=== PATIENT | male | born 1950 | race Caucasian/White ===

== ENCOUNTER → 2022-06-29 | Outpatient (CLI) | payer OTHER ==
[2022-06-29 14:40] LABS: Basophils # (auto) 0.1 10 ^3/uL (0-0.2); Basophils % (auto) 0.7 % (0.0-2.0); Eosinophils # (auto) 0.3 10 ^3/uL (0-0.8); Eosinophils % (auto) 4.1 % (0.0-7.0); Hematocrit 43.1 % (41.0-53.0); Hemoglobin 14.6 g/dL (13.5-17.5); Lymphocytes # (auto) 1.7 10 ^3/uL (0.4-5.4); Lymphocytes % (auto) 20.9 % (10.0-50.0); Mean Corpuscular Hemoglobin 30.5 pg (28.0-32.0); Mean Corpuscular Hgb Conc. 33.9 g/dL (32.0-36.0); Mean Corpuscular Volume 89.9 fL (80.0-100.0); Monocytes # (auto) 0.6 10 ^3/uL (0-1.3); Monocytes % (auto) 7.9 % (0.0-12.0); Neutrophils # (auto) 5.3 10 ^3/uL (1.6-8.6); Neutrophils % (auto) 66.4 % (37.0-80.0); Nucleated Red Blood Cells % 0.1 %; Red Cell Distribution Width 12.8 % (11.8-14.3)
[2022-06-29 16:54] LABS: Albumin 3.7 g/dL (3.4-5.0); Calcium 8.5 mg/dL (8.5-10.1); Potassium 3.9 mmol/L (3.5-5.1)
[2022-06-29 17:04] LABS: BUN/Creatinine Ratio 22.2; Bilirubin, Total 0.6 mg/dL (0.2-1.0); Ferritin 173.7 ng/mL (10-322); T3 Total 0.97 ng/mL (0.60-1.81)
== END | disposition home or self-care (01) ==
LOC: LAB 14:20
PROVIDERS: ATTEND Internal Medicine
DX: M81.0 Age-related osteoporosis without current pathological fracture (principal); E78.5 Hyperlipidemia, unspecified; E55.9 Vitamin D deficiency, unspecified; R73.9 Hyperglycemia, unspecified
CPT/HCPCS: 36415; 80053; 80061; 82306; 82550; 82607; 82728; 83036; 83540; 83550; 84436; 84443; 84480; 85025

== ENCOUNTER 2022-07-31 01:20 | Inpatient (IN) | payer OTHER ==
[2022-07-31] VITALS (7 sets, daily range): BP systolic 139–176; BP diastolic 76–91
[~2022-07-31] VITALS: Ht 177.8 cm; Wt 68.0 kg
[2022-07-31 01:56] LABS: Basophils # (auto) 0.1 10 ^3/uL (0-0.2); Basophils % (auto) 0.3 % (0.0-2.0); Eosinophils # (auto) 0.2 10 ^3/uL (0-0.8); Hematocrit 37.5 % (41.0-53.0); Hemoglobin 13.3 g/dL (13.5-17.5); Lymphocytes # (auto) 0.4 10 ^3/uL (0.4-5.4); Lymphocytes % (auto) 2.2 % (10.0-50.0); Mean Corpuscular Hgb Conc. 35.4 g/dL (32.0-36.0); Mean Corpuscular Volume 87.4 fL (80.0-100.0); Monocytes # (auto) 0.5 10 ^3/uL (0-1.3); Neutrophils # (auto) 16.7 10 ^3/uL (1.6-8.6); Neutrophils % (auto) 93.5 % (37.0-80.0); Nucleated Red Blood Cells % 0.1 %; White Blood Cell 17.9 10^3/uL (4.4-10.8)
[2022-07-31] MEDS ORDERED: IOHEXOL 350 MG/ML 100ML IJ ONE (01:57)
[2022-07-31 02:08] LABS: Albumin 2.6 g/dL (3.4-5.0); BUN/Creatinine Ratio 22.6 (10.0-20.0); Magnesium 2.3 mg/dL (1.6-2.6); Potassium 3.1 mmol/L (3.5-5.1)
[2022-07-31 02:11] LABS: Bilirubin, Total 1.4 mg/dL (0.2-1.0); Total Protein 7.2 g/dL (6.4-8.2)
[2022-07-31 03:17] LABS: Urine Bacteria FEW /hpf (None Seen); Urine Blood Negative /uL (Negative); Urine WBC 2 /hpf (0 - 3)
[2022-07-31 03:21] LABS: Urine Specific Gravity > 1.050 (1.001-1.035)
[2022-07-31] MEDS ORDERED: cefTRIAXone 1GM/50ML D5W 50 ML IV ONE (04:00)
[2022-07-31] MEDS ORDERED: LACTATED RINGER'S 1,000 ML IV ONE (04:00)
[2022-07-31] MEDS ORDERED: DexAMETHasone SOD PHOS 10MG/1ML VIAL INJ IV ONE (04:00)
[2022-07-31] MEDS ORDERED: ALBUTEROL SULF 2.5 MG/0.5ML(0.5%) NEB SOLN NEB ONE (04:00)
[2022-07-31] MEDS ORDERED: AZITHROMYCIN 500MG/ 250ML 250 ML IV ONE (04:00)
[2022-07-31] MEDS ORDERED: ALBUTEROL SULF HFA 90MCG INH 200DOSE IN PRN (10:15)
[2022-07-31] MEDS ORDERED: REMDESIVIR PER PHARMACY 0 ML IV SCH (10:15)
[2022-07-31] MEDS ORDERED: VANCOMYCIN PER PHARMACY 0 MG IV SCH (10:15)
[2022-07-31] MEDS ORDERED: PANTOPRAZOLE 40 MG/10 ML VIAL INJ IV ONE (10:15)
[2022-07-31] MEDS ORDERED: SODIUM CHLORIDE 0.9% 1,000 ML IV ONE (10:15)
[2022-07-31] MEDS ORDERED: CEFEPIME 1GM/ 50ML 50 ML IV ONE (10:15)
[2022-07-31] MEDS ORDERED: MORPHINE SULFATE INJ 2 MG/ml SYRG IV PRN (10:30)
[2022-07-31] MEDS ORDERED: ALBUTEROL SULF 2.5 MG/0.5ML(0.5%) NEB SOLN ONE (10:41)
[2022-07-31] MEDS ORDERED: IPRATROPIUM BROM 0.5 MG/2.5ML INH SOL ONE (10:41)
[2022-07-31] MEDS ORDERED: hydrALAZINE HCL 20 MG/ML VL IV PRN (10:45)
[2022-07-31 10:54] LABS: Hematocrit 38.6 % (41.0-53.0); Hemoglobin 13.4 g/dL (13.5-17.5); Mean Corpuscular Hemoglobin 30.8 pg (28.0-32.0); Mean Corpuscular Hgb Conc. 34.6 g/dL (32.0-36.0); Mean Corpuscular Volume 88.9 fL (80.0-100.0); Red Blood Cells 4.35 10^6/uL (4.5-5.90); Red Cell Distribution Width 13.1 % (11.8-14.3); White Blood Cell 16.2 10^3/uL (4.4-10.8)
[2022-07-31] MEDS: POTASSIUM CHL 20MEQ/100ML 100 ML IV SCH ×2 (10:58→12:30)
[2022-07-31] MEDS: SODIUM CHLORIDE 0.9% 1,000 ML IV SCH ×2 (10:58→18:25)
[2022-07-31 11:00] LABS: Basophils % (manual) 0 (0.0-2.0); Blast Cells 0; Eosinophils % (manual) 0 (0-7); Metamyelocytes % 0; Myelocytes % 0; Promyelocytes % 0; Reactive Lymphocytes 0
[2022-07-31] MEDS: VANCOMYCIN 1GM/250ML 250 ML IV SCH ×2 (11:30→23:42)
[2022-07-31 11:32] LABS: Albumin 2.4 g/dL (3.4-5.0); BUN/Creatinine Ratio 21.7 (10.0-20.0); Calcium 8.7 mg/dL (8.5-10.1); Potassium 3.2 mmol/L (3.5-5.1)
[2022-07-31 11:35] LABS: Total Protein 6.4 g/dL (6.4-8.2)
[2022-07-31] MEDS: IPRATROPIUM BROM 0.5 MG/2.5ML INH SOL NEB SCH ×2 (11:47→18:19)
[2022-07-31] MEDS: ALBUTEROL SULF 2.5 MG/0.5ML(0.5%) NEB SOLN NEB SCH ×2 (11:47→18:19)
[2022-07-31] MEDS ORDERED: REMDESIVIR 200 MG in NS 210ml LOADING DOSE ADULT IV ONE (12:00)
[2022-07-31 13:01] LABS: Amphetamine Screen, Urine NEGATIVE (NEGATIVE); Barbiturate Scree,Urine NEGATIVE (NEGATIVE); Benzodiazephine Screen, Urine NEGATIVE (NEGATIVE); Cannabinoid Screen, Urine NEGATIVE (NEGATIVE); Cocaine Screen, Urine NEGATIVE (NEGATIVE); Opiate Scree,Urine NEGATIVE (NEGATIVE); Phencyclidine Screen, Urine NEGATIVE (NEGATIVE)
[2022-07-31 13:36] LABS: Thyroid Stimulating Hormone 0.65 uIU/mL (0.358-3.74)
[2022-07-31] MEDS: CEFEPIME 1GM/ 50ML 50 ML IV SCH ×2 (14:00→22:24)
[2022-07-31] MEDS ORDERED: LIDOCAINE 2% JELLY 11ml (GLYDO) UR ONE (15:30)
[2022-07-31 16:19] LABS: Band Neutrophils % (manual) 5; Lymphocytes % (manual) 1 (10.0-50.0); Monocytes % (manual) 2 (0-12)
[2022-07-31] MEDS: BUDESONIDE (INHALATION) 180 MCG IH IN SCH (18:53)
[2022-07-31] MEDS: ENOXAPARIN SOD 40 MG/0.4 ML SYRINGE SC SCH (22:25)
[2022-08-01] VITALS (44 sets, daily range): BP systolic 124–177; BP diastolic 71–94
[2022-08-01] MEDS: IPRATROPIUM BROM 0.5 MG/2.5ML INH SOL NEB SCH ×4 (00:28→18:13)
[2022-08-01] MEDS: ALBUTEROL SULF 2.5 MG/0.5ML(0.5%) NEB SOLN NEB SCH ×4 (00:28→18:13)
[2022-08-01 01:13] LABS: Magnesium 2.3 mg/dL (1.6-2.6)
[2022-08-01] MEDS: SODIUM CHLORIDE 0.9% 1,000 ML IV SCH ×2 (02:15→10:15)
[2022-08-01 03:52] LABS: Basophils # (auto) 0 10 ^3/uL (0-0.2); Eosinophils # (auto) 0 10 ^3/uL (0-0.8); Hematocrit 38.5 % (41.0-53.0); Hemoglobin 12.9 g/dL (13.5-17.5); Lymphocytes # (auto) 0.3 10 ^3/uL (0.4-5.4); Lymphocytes % (auto) 2.2 % (10.0-50.0); Mean Corpuscular Hemoglobin 30.6 pg (28.0-32.0); Mean Corpuscular Volume 91.2 fL (80.0-100.0); Monocytes # (auto) 0.7 10 ^3/uL (0-1.3); Neutrophils # (auto) 13.9 10 ^3/uL (1.6-8.6); Neutrophils % (auto) 92.8 % (37.0-80.0); Red Blood Cells 4.22 10^6/uL (4.5-5.90)
[2022-08-01 03:53] LABS: Mean Corpuscular Hgb Conc. 33.5 g/dL (32.0-36.0); Red Cell Distribution Width 13.4 % (11.8-14.3)
[2022-08-01 04:12] LABS: Albumin 2.2 g/dL (3.4-5.0); BUN/Creatinine Ratio 21.5 (10.0-20.0); Calcium 8.8 mg/dL (8.5-10.1); Potassium 3.3 mmol/L (3.5-5.1)
[2022-08-01 04:15] LABS: Bilirubin, Total 0.7 mg/dL (0.2-1.0); Total Protein 6.8 g/dL (6.4-8.2)
[2022-08-01] MEDS: CEFEPIME 1GM/ 50ML 50 ML IV SCH ×4 (06:00→22:14)
[2022-08-01] MEDS: BUDESONIDE (INHALATION) 180 MCG IH IN SCH (10:00)
[2022-08-01] MEDS ORDERED: PANTOPRAZOLE 40 MG/10 ML VIAL INJ IV SCH (10:00)
[2022-08-01] MEDS: DexAMETHasone SOD PHOS 10MG/1ML VIAL INJ IV SCH (10:09)
[2022-08-01] MEDS: POTASSIUM CHL 20MEQ/100ML 100 ML IV SCH ×2 (10:10→12:01)
[2022-08-01] MEDS: ENOXAPARIN SOD 40 MG/0.4 ML SYRINGE SC SCH (10:10)
[2022-08-01] MEDS ORDERED: amLODIPine BESYLATE 5 MG TAB PO ONE (11:45)
[2022-08-01 13:17] LABS: INR 1.19 (0.9-1.15)
[2022-08-01] MEDS: REMDESIVIR 100mg 100 MG in SODIUM CHL 0.9% 230 ML IV SCH (15:05)
[2022-08-01] MEDS ORDERED: LIDOCAINE 1% (LOCAL ANESTH.) PF 5ml SDV ID ONE (16:00)
[2022-08-01 16:52] LABS: CRP High Sensitivity > 19.0 mg/dL (< 0.3); Cholesterol 86 mg/dL (< 200); HDL Cholesterol 17 mg/dL (40-59); LDL Cholesterol 38 mg/dL (< 100); Triglycerides 105 mg/dL (< 150)
[2022-08-01] MEDS: SODIUM CHLOR 0.9% PF (SALINE LOCK) 10ML VIAL/SYR IV SCH (22:14)
[2022-08-02] VITALS (45 sets, daily range): BP systolic 117–174; BP diastolic 61–100
[2022-08-02] MEDS: ALBUTEROL SULF 2.5 MG/0.5ML(0.5%) NEB SOLN NEB SCH ×4 (00:13→18:21)
[2022-08-02] MEDS: IPRATROPIUM BROM 0.5 MG/2.5ML INH SOL NEB SCH ×4 (00:14→18:21)
[2022-08-02] MEDS: ENOXAPARIN SOD 40 MG/0.4 ML SYRINGE SC SCH ×3 (00:27→22:03)
[2022-08-02] MEDS: BUDESONIDE (INHALATION) 180 MCG IH IN SCH ×3 (00:45→22:00)
[2022-08-02] MEDS: CEFEPIME 1GM/ 50ML 50 ML IV SCH ×3 (05:55→22:03)
[2022-08-02 06:06] LABS: Basophils # (auto) 0 10 ^3/uL (0-0.2); Basophils % (auto) 0.1 % (0.0-2.0); Eosinophils # (auto) 0 10 ^3/uL (0-0.8); Eosinophils % (auto) 0.2 % (0.0-7.0); Hematocrit 34.7 % (41.0-53.0); Hemoglobin 11.9 g/dL (13.5-17.5); Lymphocytes # (auto) 0.4 10 ^3/uL (0.4-5.4); Lymphocytes % (auto) 2.1 % (10.0-50.0); Mean Corpuscular Hemoglobin 30.7 pg (28.0-32.0); Mean Corpuscular Hgb Conc. 34.2 g/dL (32.0-36.0); Mean Corpuscular Volume 89.7 fL (80.0-100.0); Monocytes # (auto) 0.8 10 ^3/uL (0-1.3); Monocytes % (auto) 4.9 % (0.0-12.0); Neutrophils # (auto) 15.8 10 ^3/uL (1.6-8.6); Neutrophils % (auto) 92.7 % (37.0-80.0); Red Blood Cells 3.87 10^6/uL (4.5-5.90); Red Cell Distribution Width 13.4 % (11.8-14.3); White Blood Cell 17.1 10^3/uL (4.4-10.8)
[2022-08-02 06:18] LABS: Basophils % (manual) 0 (0.0-2.0); Blast Cells 0; Eosinophils % (manual) 0 (0-7); Metamyelocytes % 0; Myelocytes % 0; Promyelocytes % 0; Reactive Lymphocytes 0
[2022-08-02 06:23] LABS: Albumin 2.2 g/dL (3.4-5.0); Calcium 8.6 mg/dL (8.5-10.1); Potassium 3.2 mmol/L (3.5-5.1)
[2022-08-02 06:25] LABS: BUN/Creatinine Ratio 28.9 (10.0-20.0)
[2022-08-02 06:28] LABS: Bilirubin, Total 0.7 mg/dL (0.2-1.0); Total Protein 6.1 g/dL (6.4-8.2)
[2022-08-02 07:06] LABS: Band Neutrophils % (manual) 1; Lymphocytes % (manual) 3 (10.0-50.0); Monocytes % (manual) 6 (0-12)
[2022-08-02] MEDS: amLODIPine BESYLATE 5 MG TAB PO SCH (09:52)
[2022-08-02] MEDS: SODIUM CHLOR 0.9% PF (SALINE LOCK) 10ML VIAL/SYR IV SCH ×2 (09:53→22:03)
[2022-08-02] MEDS: DexAMETHasone SOD PHOS 10MG/1ML VIAL INJ IV SCH (09:53)
[2022-08-02] MEDS: REMDESIVIR 100mg 100 MG in SODIUM CHL 0.9% 230 ML IV SCH (14:32)
[2022-08-02] MEDS: guaiFENesin-DM 100/10mg/5ml SYR PO PRN (16:45)
[2022-08-03] VITALS (33 sets, daily range): BP systolic 93–152; BP diastolic 26–88
[2022-08-03] MEDS: ALBUTEROL SULF 2.5 MG/0.5ML(0.5%) NEB SOLN NEB SCH ×4 (00:39→19:19)
[2022-08-03] MEDS: IPRATROPIUM BROM 0.5 MG/2.5ML INH SOL NEB SCH ×4 (00:39→19:20)
[2022-08-03 05:05] LABS: Albumin 2.1 g/dL (3.4-5.0); Calcium 8.3 mg/dL (8.5-10.1); Potassium 3.2 mmol/L (3.5-5.1)
[2022-08-03 05:09] LABS: BUN/Creatinine Ratio 33.3 (10.0-20.0)
[2022-08-03 05:15] LABS: Bilirubin, Total 0.7 mg/dL (0.2-1.0)
[2022-08-03] MEDS: CEFEPIME 1GM/ 50ML 50 ML IV SCH ×3 (05:49→22:32)
[2022-08-03] MEDS: BUDESONIDE (INHALATION) 180 MCG IH IN SCH ×2 (10:00→22:00)
[2022-08-03] MEDS: SODIUM CHLOR 0.9% PF (SALINE LOCK) 10ML VIAL/SYR IV SCH ×2 (11:39→22:32)
[2022-08-03] MEDS: DexAMETHasone SOD PHOS 10MG/1ML VIAL INJ IV SCH (11:39)
[2022-08-03] MEDS: ENOXAPARIN SOD 40 MG/0.4 ML SYRINGE SC SCH ×2 (11:40→22:32)
[2022-08-03] MEDS: amLODIPine BESYLATE 5 MG TAB PO SCH (11:40)
[2022-08-03] MEDS: SALINE 0.65 % NASAL SPRAY 45ML BOTTLE EACHNOSTRI SCH ×3 (12:58→22:48)
[2022-08-03] MEDS ORDERED: FUROSEMIDE 20 MG/2 ML VIAL IV ONE (13:15)
[2022-08-03] MEDS: REMDESIVIR 100mg 100 MG in SODIUM CHL 0.9% 230 ML IV SCH (17:10)
[2022-08-03] MEDS: Pro-Stat SF 30ml Vanilla PO SCH (17:11)
[2022-08-04] VITALS (33 sets, daily range): BP systolic 93–137; BP diastolic 49–82
[2022-08-04] MEDS: ALBUTEROL SULF 2.5 MG/0.5ML(0.5%) NEB SOLN NEB SCH ×4 (01:39→19:17)
[2022-08-04] MEDS: IPRATROPIUM BROM 0.5 MG/2.5ML INH SOL NEB SCH ×4 (01:39→19:18)
[2022-08-04 05:12] LABS: Albumin 2.1 g/dL (3.4-5.0); BUN/Creatinine Ratio 27.5 (10.0-20.0); Calcium 8.3 mg/dL (8.5-10.1); Potassium 3.3 mmol/L (3.5-5.1)
[2022-08-04 05:15] LABS: Bilirubin, Total 1.5 mg/dL (0.2-1.0); Total Protein 6.2 g/dL (6.4-8.2)
[2022-08-04] MEDS: CEFEPIME 1GM/ 50ML 50 ML IV SCH ×3 (05:26→22:15)
[2022-08-04] MEDS: BUDESONIDE (INHALATION) 180 MCG IH IN SCH (05:42)
[2022-08-04] MEDS: SALINE 0.65 % NASAL SPRAY 45ML BOTTLE EACHNOSTRI SCH ×4 (06:51→22:23)
[2022-08-04] MEDS: Pro-Stat SF 30ml Vanilla PO SCH ×2 (08:00→18:53)
[2022-08-04 08:05] LABS: Basophils # (auto) 0 10 ^3/uL (0-0.2); Basophils % (auto) 0.1 % (0.0-2.0); Eosinophils # (auto) 0.5 10 ^3/uL (0-0.8); Eosinophils % (auto) 3.8 % (0.0-7.0); Hematocrit 36.3 % (41.0-53.0); Hemoglobin 12.3 g/dL (13.5-17.5); Lymphocytes # (auto) 0.5 10 ^3/uL (0.4-5.4); Lymphocytes % (auto) 3.8 % (10.0-50.0); Mean Corpuscular Volume 91.2 fL (80.0-100.0); Monocytes # (auto) 0.2 10 ^3/uL (0-1.3); Monocytes % (auto) 1.7 % (0.0-12.0); Neutrophils % (auto) 90.6 % (37.0-80.0); Red Blood Cells 3.97 10^6/uL (4.5-5.90); Red Cell Distribution Width 13.3 % (11.8-14.3); White Blood Cell 12.2 10^3/uL (4.4-10.8)
[2022-08-04] MEDS: amLODIPine BESYLATE 5 MG TAB PO SCH (10:00)
[2022-08-04] MEDS: FUROSEMIDE 20 MG/2 ML VIAL IV SCH (10:17)
[2022-08-04] MEDS: SODIUM CHLOR 0.9% PF (SALINE LOCK) 10ML VIAL/SYR IV SCH ×2 (10:18→22:23)
[2022-08-04] MEDS: ENOXAPARIN SOD 40 MG/0.4 ML SYRINGE SC SCH ×2 (10:19→22:15)
[2022-08-04] MEDS: DexAMETHasone SOD PHOS 10MG/1ML VIAL INJ IV SCH (10:19)
[2022-08-04] MEDS: REMDESIVIR 100mg 100 MG in SODIUM CHL 0.9% 230 ML IV SCH (15:21)
[2022-08-04] MEDS: POTASSIUM CHL 20MEQ/100ML 100 ML IV SCH ×2 (18:52→20:25)
[2022-08-04] MEDS: Glucerna Carbsteady SHAKE Vanilla 8oz PO SCH (18:53)
[2022-08-05] VITALS (25 sets, daily range): BP systolic 108–135; BP diastolic 53–88
[2022-08-05] MEDS: IPRATROPIUM BROM 0.5 MG/2.5ML INH SOL NEB SCH ×4 (00:25→18:40)
[2022-08-05] MEDS: ALBUTEROL SULF 2.5 MG/0.5ML(0.5%) NEB SOLN NEB SCH ×4 (00:25→18:40)
[2022-08-05 04:36] LABS: Hemoglobin 12.6 g/dL (13.5-17.5); Mean Corpuscular Hemoglobin 31.5 pg (28.0-32.0); Mean Corpuscular Hgb Conc. 34.1 g/dL (32.0-36.0); Mean Corpuscular Volume 92.4 fL (80.0-100.0); Red Cell Distribution Width 13.3 % (11.8-14.3); White Blood Cell 14.8 10^3/uL (4.4-10.8)
[2022-08-05 04:51] LABS: Basophils % (manual) 0 (0.0-2.0); Blast Cells 0; Eosinophils % (manual) 0 (0-7); Metamyelocytes % 0; Myelocytes % 0; Promyelocytes % 0
[2022-08-05 05:00] LABS: BUN/Creatinine Ratio 40.8 (10.0-20.0); Calcium 8.5 mg/dL (8.5-10.1); Potassium 3.8 mmol/L (3.5-5.1)
[2022-08-05] MEDS: SALINE 0.65 % NASAL SPRAY 45ML BOTTLE EACHNOSTRI SCH ×4 (05:37→22:04)
[2022-08-05] MEDS: CEFEPIME 1GM/ 50ML 50 ML IV SCH ×3 (06:10→22:04)
[2022-08-05 07:45] LABS: Band Neutrophils % (manual) 7; Lymphocytes % (manual) 1 (10.0-50.0); Monocytes % (manual) 3 (0-12); Reactive Lymphocytes 1
[2022-08-05] MEDS: Glucerna Carbsteady SHAKE Vanilla 8oz PO SCH ×3 (09:50→18:42)
[2022-08-05] MEDS: FUROSEMIDE 20 MG/2 ML VIAL IV SCH (09:51)
[2022-08-05] MEDS: Pro-Stat SF 30ml Vanilla PO SCH ×2 (09:51→18:42)
[2022-08-05] MEDS: DexAMETHasone SOD PHOS 10MG/1ML VIAL INJ IV SCH (09:51)
[2022-08-05] MEDS: amLODIPine BESYLATE 5 MG TAB PO SCH (09:51)
[2022-08-05] MEDS: SODIUM CHLOR 0.9% PF (SALINE LOCK) 10ML VIAL/SYR IV SCH ×2 (09:52→22:04)
[2022-08-05] MEDS: ENOXAPARIN SOD 40 MG/0.4 ML SYRINGE SC SCH (09:56)
[2022-08-05] MEDS: ENOXAPARIN SOD 80 MG/0.8ML SYRINGE SC SCH (22:04)
[2022-08-06] VITALS (30 sets, daily range): BP systolic 96–142; BP diastolic 32–80
[2022-08-06] MEDS: IPRATROPIUM BROM 0.5 MG/2.5ML INH SOL NEB SCH ×4 (00:29→18:50)
[2022-08-06] MEDS: ALBUTEROL SULF 2.5 MG/0.5ML(0.5%) NEB SOLN NEB SCH ×4 (00:29→18:50)
[2022-08-06 04:40] LABS: Calcium 8.1 mg/dL (8.5-10.1)
[2022-08-06] MEDS: SALINE 0.65 % NASAL SPRAY 45ML BOTTLE EACHNOSTRI SCH ×4 (05:33→22:02)
[2022-08-06] MEDS: CEFEPIME 1GM/ 50ML 50 ML IV SCH ×3 (05:33→22:02)
[2022-08-06 06:00] LABS: Hematocrit 34.8 % (41.0-53.0); Hemoglobin 11.8 g/dL (13.5-17.5); Mean Corpuscular Hemoglobin 31.1 pg (28.0-32.0); Mean Corpuscular Hgb Conc. 33.9 g/dL (32.0-36.0); Mean Corpuscular Volume 91.6 fL (80.0-100.0); Red Cell Distribution Width 13.2 % (11.8-14.3); White Blood Cell 18.5 10^3/uL (4.4-10.8)
[2022-08-06 06:06] LABS: Basophils % (manual) 0 (0.0-2.0); Blast Cells 0; Eosinophils % (manual) 0 (0-7); Metamyelocytes % 0; Myelocytes % 0; Promyelocytes % 0; Reactive Lymphocytes 0
[2022-08-06] MEDS: Pro-Stat SF 30ml Vanilla PO SCH ×2 (08:00→18:00)
[2022-08-06 08:35] LABS: Band Neutrophils % (manual) 2; Lymphocytes % (manual) 3 (10.0-50.0); Monocytes % (manual) 2 (0-12)
[2022-08-06] MEDS: Glucerna Carbsteady SHAKE Vanilla 8oz PO SCH ×3 (08:57→18:00)
[2022-08-06] MEDS: ENOXAPARIN SOD 80 MG/0.8ML SYRINGE SC SCH ×2 (10:05→22:02)
[2022-08-06] MEDS: amLODIPine BESYLATE 5 MG TAB PO SCH (10:05)
[2022-08-06] MEDS: SODIUM CHLOR 0.9% PF (SALINE LOCK) 10ML VIAL/SYR IV SCH ×2 (10:06→22:02)
[2022-08-06] MEDS: DexAMETHasone SOD PHOS 10MG/1ML VIAL INJ IV SCH (10:06)
[2022-08-06] MEDS: FUROSEMIDE 20 MG/2 ML VIAL IV SCH (10:06)
[2022-08-07] VITALS (32 sets, daily range): BP systolic 99–133; BP diastolic 45–77
[2022-08-07] MEDS: ALBUTEROL SULF 2.5 MG/0.5ML(0.5%) NEB SOLN NEB SCH ×4 (00:27→19:01)
[2022-08-07] MEDS: IPRATROPIUM BROM 0.5 MG/2.5ML INH SOL NEB SCH ×4 (00:27→19:01)
[2022-08-07] MEDS: guaiFENesin-DM 100/10mg/5ml SYR PO PRN ×2 (03:10→22:02)
[2022-08-07 04:46] LABS: Basophils # (auto) 0 10 ^3/uL (0-0.2); Basophils % (auto) 0.2 % (0.0-2.0); Eosinophils # (auto) 0.2 10 ^3/uL (0-0.8); Eosinophils % (auto) 1.2 % (0.0-7.0); Hematocrit 36.5 % (41.0-53.0); Hemoglobin 12.5 g/dL (13.5-17.5); Lymphocytes # (auto) 0.7 10 ^3/uL (0.4-5.4); Lymphocytes % (auto) 3.9 % (10.0-50.0); Mean Corpuscular Hemoglobin 31.1 pg (28.0-32.0); Mean Corpuscular Hgb Conc. 34.3 g/dL (32.0-36.0); Mean Corpuscular Volume 90.4 fL (80.0-100.0); Monocytes # (auto) 0.4 10 ^3/uL (0-1.3); Monocytes % (auto) 2.1 % (0.0-12.0); Neutrophils # (auto) 15.6 10 ^3/uL (1.6-8.6); Neutrophils % (auto) 92.6 % (37.0-80.0); Red Blood Cells 4.03 10^6/uL (4.5-5.90); Red Cell Distribution Width 13.5 % (11.8-14.3); White Blood Cell 16.8 10^3/uL (4.4-10.8)
[2022-08-07 05:30] LABS: BUN/Creatinine Ratio 47.4 (10.0-20.0); Calcium 8.2 mg/dL (8.5-10.1)
[2022-08-07] MEDS: CEFEPIME 1GM/ 50ML 50 ML IV SCH ×3 (06:17→22:02)
[2022-08-07] MEDS: SALINE 0.65 % NASAL SPRAY 45ML BOTTLE EACHNOSTRI SCH ×4 (06:17→22:02)
[2022-08-07] MEDS: Glucerna Carbsteady SHAKE Vanilla 8oz PO SCH ×3 (08:45→18:47)
[2022-08-07] MEDS: Pro-Stat SF 30ml Vanilla PO SCH ×2 (08:45→18:47)
[2022-08-07] MEDS: ENOXAPARIN SOD 80 MG/0.8ML SYRINGE SC SCH ×2 (10:55→22:02)
[2022-08-07] MEDS: DexAMETHasone SOD PHOS 10MG/1ML VIAL INJ IV SCH (10:55)
[2022-08-07] MEDS: amLODIPine BESYLATE 5 MG TAB PO SCH (10:55)
[2022-08-07] MEDS: FUROSEMIDE 20 MG/2 ML VIAL IV SCH (10:55)
[2022-08-07] MEDS: SODIUM CHLOR 0.9% PF (SALINE LOCK) 10ML VIAL/SYR IV SCH ×2 (10:55→22:02)
[2022-08-07] MEDS: PRAVASTATIN SODIUM 20 MG TAB PO SCH (22:02)
[2022-08-08] VITALS (32 sets, daily range): BP systolic 97–132; BP diastolic 60–89
[2022-08-08] MEDS: ALBUTEROL SULF 2.5 MG/0.5ML(0.5%) NEB SOLN NEB SCH ×4 (00:46→17:54)
[2022-08-08] MEDS: IPRATROPIUM BROM 0.5 MG/2.5ML INH SOL NEB SCH ×4 (00:46→17:54)
[2022-08-08 04:09] LABS: Basophils # (auto) 0 10 ^3/uL (0-0.2); Basophils % (auto) 0.2 % (0.0-2.0); Eosinophils # (auto) 0 10 ^3/uL (0-0.8); Eosinophils % (auto) 0.1 % (0.0-7.0); Hematocrit 34.5 % (41.0-53.0); Hemoglobin 11.8 g/dL (13.5-17.5); Lymphocytes # (auto) 0.4 10 ^3/uL (0.4-5.4); Lymphocytes % (auto) 2.1 % (10.0-50.0); Mean Corpuscular Hgb Conc. 34.2 g/dL (32.0-36.0); Mean Corpuscular Volume 90.7 fL (80.0-100.0); Monocytes # (auto) 0.5 10 ^3/uL (0-1.3); Monocytes % (auto) 2.5 % (0.0-12.0); Neutrophils # (auto) 17.2 10 ^3/uL (1.6-8.6); Neutrophils % (auto) 95.1 % (37.0-80.0); Nucleated Red Blood Cells % 0.1 %; Red Cell Distribution Width 13.3 % (11.8-14.3); White Blood Cell 18.1 10^3/uL (4.4-10.8)
[2022-08-08 04:18] LABS: Calcium 8.4 mg/dL (8.5-10.1); Potassium 4.4 mmol/L (3.5-5.1)
[2022-08-08 04:20] LABS: BUN/Creatinine Ratio 52.6 (10.0-20.0)
[2022-08-08] MEDS: CEFEPIME 1GM/ 50ML 50 ML IV SCH ×3 (06:01→22:04)
[2022-08-08] MEDS: SALINE 0.65 % NASAL SPRAY 45ML BOTTLE EACHNOSTRI SCH ×4 (06:01→22:05)
[2022-08-08] MEDS: Pro-Stat SF 30ml Vanilla PO SCH ×2 (09:30→18:30)
[2022-08-08] MEDS: Glucerna Carbsteady SHAKE Vanilla 8oz PO SCH ×3 (09:30→18:30)
[2022-08-08] MEDS: SODIUM CHLOR 0.9% PF (SALINE LOCK) 10ML VIAL/SYR IV SCH ×2 (10:15→22:05)
[2022-08-08] MEDS: DexAMETHasone SOD PHOS 10MG/1ML VIAL INJ IV SCH (10:15)
[2022-08-08] MEDS: FUROSEMIDE 20 MG/2 ML VIAL IV SCH (10:15)
[2022-08-08] MEDS: amLODIPine BESYLATE 5 MG TAB PO SCH (10:15)
[2022-08-08] MEDS: ENOXAPARIN SOD 80 MG/0.8ML SYRINGE SC SCH ×2 (10:15→22:05)
[2022-08-08] MEDS: guaiFENesin-DM 100/10mg/5ml SYR PO PRN (22:04)
[2022-08-08] MEDS: PRAVASTATIN SODIUM 20 MG TAB PO SCH (22:05)
[2022-08-09] VITALS (43 sets, daily range): BP systolic 98–135; BP diastolic 56–78
[2022-08-09] MEDS: IPRATROPIUM BROM 0.5 MG/2.5ML INH SOL NEB SCH ×4 (00:03→18:13)
[2022-08-09] MEDS: ALBUTEROL SULF 2.5 MG/0.5ML(0.5%) NEB SOLN NEB SCH ×4 (00:03→18:12)
[2022-08-09 04:10] LABS: Basophils # (auto) 0 10 ^3/uL (0-0.2); Basophils % (auto) 0.1 % (0.0-2.0); Eosinophils # (auto) 0.1 10 ^3/uL (0-0.8); Eosinophils % (auto) 0.6 % (0.0-7.0); Hematocrit 37.4 % (41.0-53.0); Hemoglobin 12.8 g/dL (13.5-17.5); Lymphocytes # (auto) 0.7 10 ^3/uL (0.4-5.4); Mean Corpuscular Hemoglobin 30.9 pg (28.0-32.0); Mean Corpuscular Hgb Conc. 34.3 g/dL (32.0-36.0); Monocytes # (auto) 0.6 10 ^3/uL (0-1.3); Monocytes % (auto) 2.8 % (0.0-12.0); Neutrophils % (auto) 93.5 % (37.0-80.0); Nucleated Red Blood Cells % 0.1 %; Red Blood Cells 4.16 10^6/uL (4.5-5.90); Red Cell Distribution Width 13.7 % (11.8-14.3); White Blood Cell 22.5 10^3/uL (4.4-10.8)
[2022-08-09 04:30] LABS: BUN/Creatinine Ratio 57.7 (10.0-20.0); Potassium 4.2 mmol/L (3.5-5.1)
[2022-08-09] MEDS: SALINE 0.65 % NASAL SPRAY 45ML BOTTLE EACHNOSTRI SCH ×4 (05:42→22:31)
[2022-08-09] MEDS: CEFEPIME 1GM/ 50ML 50 ML IV SCH ×3 (06:25→22:29)
[2022-08-09] MEDS: Glucerna Carbsteady SHAKE Vanilla 8oz PO SCH ×3 (08:37→19:26)
[2022-08-09] MEDS: Pro-Stat SF 30ml Vanilla PO SCH ×2 (08:37→19:26)
[2022-08-09] MEDS: FUROSEMIDE 20 MG/2 ML VIAL IV SCH (09:31)
[2022-08-09] MEDS: SODIUM CHLOR 0.9% PF (SALINE LOCK) 10ML VIAL/SYR IV SCH ×2 (09:31→21:22)
[2022-08-09] MEDS: DexAMETHasone SOD PHOS 10MG/1ML VIAL INJ IV SCH (09:32)
[2022-08-09] MEDS: amLODIPine BESYLATE 5 MG TAB PO SCH (09:33)
[2022-08-09] MEDS: ENOXAPARIN SOD 80 MG/0.8ML SYRINGE SC SCH ×2 (09:35→21:17)
[2022-08-09] MEDS: PRAVASTATIN SODIUM 20 MG TAB PO SCH (21:17)
[2022-08-09] MEDS: MELATONIN 5 MG TAB PO SCH (22:00)
[2022-08-10] VITALS (43 sets, daily range): BP systolic 102–136; BP diastolic 64–80
[2022-08-10] MEDS: IPRATROPIUM BROM 0.5 MG/2.5ML INH SOL NEB SCH ×4 (00:08→18:30)
[2022-08-10] MEDS: ALBUTEROL SULF 2.5 MG/0.5ML(0.5%) NEB SOLN NEB SCH ×4 (00:08→18:30)
[2022-08-10 05:59] LABS: Basophils # (auto) 0.1 10 ^3/uL (0-0.2); Basophils % (auto) 0.4 % (0.0-2.0); Eosinophils # (auto) 0.1 10 ^3/uL (0-0.8); Eosinophils % (auto) 0.6 % (0.0-7.0); Hematocrit 39.1 % (41.0-53.0); Hemoglobin 13.3 g/dL (13.5-17.5); Lymphocytes # (auto) 0.7 10 ^3/uL (0.4-5.4); Lymphocytes % (auto) 3.2 % (10.0-50.0); Mean Corpuscular Hemoglobin 30.5 pg (28.0-32.0); Mean Corpuscular Hgb Conc. 33.9 g/dL (32.0-36.0); Mean Corpuscular Volume 89.9 fL (80.0-100.0); Monocytes # (auto) 0.5 10 ^3/uL (0-1.3); Monocytes % (auto) 2.5 % (0.0-12.0); Neutrophils # (auto) 19.6 10 ^3/uL (1.6-8.6); Neutrophils % (auto) 93.3 % (37.0-80.0); Red Blood Cells 4.35 10^6/uL (4.5-5.90); Red Cell Distribution Width 13.5 % (11.8-14.3)
[2022-08-10] MEDS: SALINE 0.65 % NASAL SPRAY 45ML BOTTLE EACHNOSTRI SCH ×4 (06:00→22:57)
[2022-08-10 06:20] LABS: Potassium 4.2 mmol/L (3.5-5.1)
[2022-08-10 06:26] LABS: BUN/Creatinine Ratio 59.4 (10.0-20.0); Calcium 8.6 mg/dL (8.5-10.1)
[2022-08-10] MEDS: CEFEPIME 1GM/ 50ML 50 ML IV SCH ×3 (07:03→21:29)
[2022-08-10] MEDS: DexAMETHasone SOD PHOS 10MG/1ML VIAL INJ IV SCH (10:14)
[2022-08-10] MEDS: SODIUM CHLOR 0.9% PF (SALINE LOCK) 10ML VIAL/SYR IV SCH ×2 (10:15→21:30)
[2022-08-10] MEDS: FUROSEMIDE 20 MG/2 ML VIAL IV SCH (10:15)
[2022-08-10] MEDS: ACETAMINOPHEN 325 MG TAB PO PRN (10:16)
[2022-08-10] MEDS: amLODIPine BESYLATE 5 MG TAB PO SCH (10:17)
[2022-08-10] MEDS: ENOXAPARIN SOD 80 MG/0.8ML SYRINGE SC SCH ×2 (10:17→21:29)
[2022-08-10] MEDS: Pro-Stat SF 30ml Vanilla PO SCH ×2 (13:11→18:00)
[2022-08-10] MEDS: Glucerna Carbsteady SHAKE Vanilla 8oz PO SCH ×3 (13:12→18:00)
[2022-08-10] MEDS: PRAVASTATIN SODIUM 20 MG TAB PO SCH (21:29)
[2022-08-10] MEDS: MELATONIN 5 MG TAB PO SCH (21:30)
[2022-08-11] VITALS (31 sets, daily range): BP systolic 102–137; BP diastolic 69–83
[2022-08-11] MEDS: IPRATROPIUM BROM 0.5 MG/2.5ML INH SOL NEB SCH ×4 (00:17→18:45)
[2022-08-11] MEDS: ALBUTEROL SULF 2.5 MG/0.5ML(0.5%) NEB SOLN NEB SCH ×4 (00:18→18:45)
[2022-08-11 04:11] LABS: Basophils # (auto) 0.1 10 ^3/uL (0-0.2); Basophils % (auto) 0.6 % (0.0-2.0); Eosinophils # (auto) 0.1 10 ^3/uL (0-0.8); Eosinophils % (auto) 0.4 % (0.0-7.0); Hematocrit 39.9 % (41.0-53.0); Hemoglobin 13.6 g/dL (13.5-17.5); Lymphocytes # (auto) 0.6 10 ^3/uL (0.4-5.4); Lymphocytes % (auto) 3.3 % (10.0-50.0); Mean Corpuscular Hemoglobin 30.6 pg (28.0-32.0); Mean Corpuscular Volume 90.1 fL (80.0-100.0); Monocytes # (auto) 0.6 10 ^3/uL (0-1.3); Monocytes % (auto) 2.9 % (0.0-12.0); Neutrophils % (auto) 92.8 % (37.0-80.0); Nucleated Red Blood Cells % 0.3 %; Red Blood Cells 4.43 10^6/uL (4.5-5.90); Red Cell Distribution Width 13.5 % (11.8-14.3); White Blood Cell 19.3 10^3/uL (4.4-10.8)
[2022-08-11 04:47] LABS: BUN/Creatinine Ratio 65.3 (10.0-20.0); Calcium 8.8 mg/dL (8.5-10.1); Potassium 4.3 mmol/L (3.5-5.1)
[2022-08-11] MEDS: CEFEPIME 1GM/ 50ML 50 ML IV SCH (05:17)
[2022-08-11] MEDS: SALINE 0.65 % NASAL SPRAY 45ML BOTTLE EACHNOSTRI SCH ×4 (06:07→22:29)
[2022-08-11] MEDS: DexAMETHasone SOD PHOS 10MG/1ML VIAL INJ IV SCH (09:32)
[2022-08-11] MEDS: FUROSEMIDE 20 MG/2 ML VIAL IV SCH (09:32)
[2022-08-11] MEDS: ENOXAPARIN SOD 80 MG/0.8ML SYRINGE SC SCH ×2 (09:33→22:31)
[2022-08-11] MEDS: amLODIPine BESYLATE 5 MG TAB PO SCH (09:33)
[2022-08-11] MEDS: Pro-Stat SF 30ml Vanilla PO SCH ×2 (09:35→18:00)
[2022-08-11] MEDS: SODIUM CHLOR 0.9% PF (SALINE LOCK) 10ML VIAL/SYR IV SCH ×2 (09:35→22:30)
[2022-08-11] MEDS: Glucerna Carbsteady SHAKE Vanilla 8oz PO SCH ×3 (09:35→18:00)
[2022-08-11] MEDS: MELATONIN 5 MG TAB PO SCH (22:30)
[2022-08-11] MEDS: PRAVASTATIN SODIUM 20 MG TAB PO SCH (22:31)
[2022-08-12] VITALS (20 sets, daily range): BP systolic 99–130; BP diastolic 69–83
[2022-08-12] MEDS: IPRATROPIUM BROM 0.5 MG/2.5ML INH SOL NEB SCH ×2 (00:13→18:03)
[2022-08-12] MEDS: ALBUTEROL SULF 2.5 MG/0.5ML(0.5%) NEB SOLN NEB SCH ×3 (00:13→18:03)
[2022-08-12 04:22] LABS: Basophils # (auto) 0.1 10 ^3/uL (0-0.2); Basophils % (auto) 0.7 % (0.0-2.0); Eosinophils # (auto) 0.2 10 ^3/uL (0-0.8); Eosinophils % (auto) 0.9 % (0.0-7.0); Hematocrit 39.9 % (41.0-53.0); Hemoglobin 13.3 g/dL (13.5-17.5); Lymphocytes # (auto) 0.7 10 ^3/uL (0.4-5.4); Lymphocytes % (auto) 3.7 % (10.0-50.0); Mean Corpuscular Hemoglobin 29.8 pg (28.0-32.0); Mean Corpuscular Hgb Conc. 33.4 g/dL (32.0-36.0); Mean Corpuscular Volume 89.2 fL (80.0-100.0); Monocytes # (auto) 0.7 10 ^3/uL (0-1.3); Monocytes % (auto) 3.6 % (0.0-12.0); Neutrophils # (auto) 17.3 10 ^3/uL (1.6-8.6); Neutrophils % (auto) 91.1 % (37.0-80.0); Nucleated Red Blood Cells % 0.2 %; Red Blood Cells 4.47 10^6/uL (4.5-5.90); Red Cell Distribution Width 13.5 % (11.8-14.3)
[2022-08-12 04:50] LABS: BUN/Creatinine Ratio 46.9 (10.0-20.0); Calcium 8.5 mg/dL (8.5-10.1); Potassium 4.4 mmol/L (3.5-5.1)
[2022-08-12] MEDS: SALINE 0.65 % NASAL SPRAY 45ML BOTTLE EACHNOSTRI SCH ×3 (06:13→22:00)
[2022-08-12] MEDS: Pro-Stat SF 30ml Vanilla PO SCH ×2 (09:26→18:00)
[2022-08-12] MEDS: Glucerna Carbsteady SHAKE Vanilla 8oz PO SCH ×3 (09:27→18:00)
[2022-08-12] MEDS: FUROSEMIDE 20 MG/2 ML VIAL IV SCH (10:04)
[2022-08-12] MEDS: ENOXAPARIN SOD 80 MG/0.8ML SYRINGE SC SCH ×2 (10:04→22:14)
[2022-08-12] MEDS: DexAMETHasone SOD PHOS 10MG/1ML VIAL INJ IV SCH (10:05)
[2022-08-12] MEDS: amLODIPine BESYLATE 5 MG TAB PO SCH (10:05)
[2022-08-12] MEDS: SODIUM CHLOR 0.9% PF (SALINE LOCK) 10ML VIAL/SYR IV SCH ×2 (10:05→22:14)
[2022-08-12] MEDS ORDERED: ENOXAPARIN SOD 100 MG/1 ML SYRINGE SC ONE (21:37)
[2022-08-12] MEDS: MELATONIN 5 MG TAB PO SCH (22:00)
[2022-08-12] MEDS: PRAVASTATIN SODIUM 20 MG TAB PO SCH (22:14)
[2022-08-13] VITALS (43 sets, daily range): BP systolic 93–130; BP diastolic 65–114
[2022-08-13] MEDS: IPRATROPIUM BROM 0.5 MG/2.5ML INH SOL NEB SCH ×4 (00:23→23:50)
[2022-08-13] MEDS: ALBUTEROL SULF 2.5 MG/0.5ML(0.5%) NEB SOLN NEB SCH ×4 (00:23→23:50)
[2022-08-13] MEDS: SALINE 0.65 % NASAL SPRAY 45ML BOTTLE EACHNOSTRI SCH ×4 (06:00→22:02)
[2022-08-13] MEDS: Glucerna Carbsteady SHAKE Vanilla 8oz PO SCH ×3 (08:46→18:48)
[2022-08-13] MEDS: Pro-Stat SF 30ml Vanilla PO SCH ×2 (08:46→18:48)
[2022-08-13] MEDS: DexAMETHasone SOD PHOS 10MG/1ML VIAL INJ IV SCH (11:05)
[2022-08-13] MEDS: SODIUM CHLOR 0.9% PF (SALINE LOCK) 10ML VIAL/SYR IV SCH ×2 (11:06→22:02)
[2022-08-13] MEDS: FUROSEMIDE 20 MG/2 ML VIAL IV SCH (11:06)
[2022-08-13] MEDS: ENOXAPARIN SOD 80 MG/0.8ML SYRINGE SC SCH ×2 (11:07→22:02)
[2022-08-13] MEDS: amLODIPine BESYLATE 5 MG TAB PO SCH (11:07)
[2022-08-13] MEDS: MELATONIN 5 MG TAB PO SCH (22:00)
[2022-08-13] MEDS: PRAVASTATIN SODIUM 20 MG TAB PO SCH (22:02)
[2022-08-14] VITALS (66 sets, daily range): BP systolic 93–131; BP diastolic 52–84
[2022-08-14] MEDS: SALINE 0.65 % NASAL SPRAY 45ML BOTTLE EACHNOSTRI SCH ×4 (06:00→22:00)
[2022-08-14] MEDS: IPRATROPIUM BROM 0.5 MG/2.5ML INH SOL NEB SCH ×3 (06:04→18:24)
[2022-08-14] MEDS: ALBUTEROL SULF 2.5 MG/0.5ML(0.5%) NEB SOLN NEB SCH ×3 (06:04→18:23)
[2022-08-14] MEDS: Pro-Stat SF 30ml Vanilla PO SCH ×2 (08:40→18:51)
[2022-08-14] MEDS: Glucerna Carbsteady SHAKE Vanilla 8oz PO SCH ×3 (08:40→18:51)
[2022-08-14] MEDS: amLODIPine BESYLATE 5 MG TAB PO SCH (10:00)
[2022-08-14] MEDS: ENOXAPARIN SOD 80 MG/0.8ML SYRINGE SC SCH ×2 (10:00→22:00)
[2022-08-14] MEDS: FUROSEMIDE 20 MG/2 ML VIAL IV SCH (10:00)
[2022-08-14] MEDS: SODIUM CHLOR 0.9% PF (SALINE LOCK) 10ML VIAL/SYR IV SCH ×2 (10:00→22:00)
[2022-08-14] MEDS: DexAMETHasone SOD PHOS 10MG/1ML VIAL INJ IV SCH (10:00)
[2022-08-14] MEDS: NITROGLYCERIN 0.4 MG SL TAB SL PRN ×2 (10:40→10:45)
[2022-08-14] MEDS ORDERED: MORPHINE SULFATE INJ 2 MG/ml SYRG IV ONE (11:00)
[2022-08-14] MEDS ORDERED: ASPirin 81 mg TAB PO ONE (11:00)
[2022-08-14] MEDS ORDERED: TPN PER PHARMACY 0 ML IV SCH (13:45)
[2022-08-14 15:04] LABS: Albumin 2.5 g/dL (3.4-5.0); Calcium 9.2 mg/dL (8.5-10.1); Magnesium 2.6 mg/dL (1.6-2.6); Potassium 4.7 mmol/L (3.5-5.1)
[2022-08-14 15:12] LABS: BUN/Creatinine Ratio 57.6 (10.0-20.0); Bilirubin, Total 0.8 mg/dL (0.2-1.0); Phosphorus 3.1 mg/dL (2.5-4.90); Total Protein 7.3 g/dL (6.4-8.2)
[2022-08-14] MEDS: PRAVASTATIN SODIUM 20 MG TAB PO SCH (22:00)
[2022-08-14] MEDS: MELATONIN 5 MG TAB PO SCH (22:00)
[2022-08-14] MEDS: AMINO ACID INFUSION IN D10W 1,000 ML IV NR (22:00)
[2022-08-15] VITALS (66 sets, daily range): BP systolic 88–136; BP diastolic 63–96
[2022-08-15] MEDS ORDERED: DEXTROSE (50%) 50ML SYRG IV SCH
[2022-08-15] MEDS: IPRATROPIUM BROM 0.5 MG/2.5ML INH SOL NEB SCH ×2 (00:24→18:17)
[2022-08-15] MEDS: ALBUTEROL SULF 2.5 MG/0.5ML(0.5%) NEB SOLN NEB SCH ×3 (00:24→18:17)
[2022-08-15] MEDS: SALINE 0.65 % NASAL SPRAY 45ML BOTTLE EACHNOSTRI SCH ×4 (06:09→22:00)
[2022-08-15] MEDS: InsuLIN REG 1unit/0.01ml Soln (100units/ml) SC SCH ×4 (06:44→18:00)
[2022-08-15] MEDS: ACCU-CHEK COMFORT CURVE STRIP VI SCH ×4 (06:44→19:33)
[2022-08-15 06:50] LABS: Basophils # (auto) 0.1 10 ^3/uL (0-0.2); Basophils % (auto) 0.7 % (0.0-2.0); Eosinophils # (auto) 0.5 10 ^3/uL (0-0.8); Eosinophils % (auto) 2.8 % (0.0-7.0); Hematocrit 40.4 % (41.0-53.0); Hemoglobin 13.5 g/dL (13.5-17.5); Lymphocytes # (auto) 0.9 10 ^3/uL (0.4-5.4); Mean Corpuscular Hemoglobin 30.2 pg (28.0-32.0); Mean Corpuscular Hgb Conc. 33.3 g/dL (32.0-36.0); Mean Corpuscular Volume 90.5 fL (80.0-100.0); Monocytes # (auto) 0 10 ^3/uL (0-1.3); Monocytes % (auto) 0.2 % (0.0-12.0); Neutrophils # (auto) 16.8 10 ^3/uL (1.6-8.6); Neutrophils % (auto) 91.3 % (37.0-80.0); Nucleated Red Blood Cells % 0.2 %; Red Blood Cells 4.46 10^6/uL (4.5-5.90); Red Cell Distribution Width 13.5 % (11.8-14.3); White Blood Cell 18.4 10^3/uL (4.4-10.8)
[2022-08-15 07:14] LABS: Potassium 3.9 mmol/L (3.5-5.1)
[2022-08-15] MEDS: Glucerna Carbsteady SHAKE Vanilla 8oz PO SCH ×5 (07:15→18:00)
[2022-08-15 07:22] LABS: Albumin 2.2 g/dL (3.4-5.0); BUN/Creatinine Ratio 72.6 (10.0-20.0); Bilirubin, Total 0.7 mg/dL (0.2-1.0); Calcium 8.6 mg/dL (8.5-10.1); Magnesium 2.3 mg/dL (1.6-2.6); Phosphorus 3.4 mg/dL (2.5-4.90)
[2022-08-15] MEDS: ACETAMINOPHEN 325 MG TAB PO PRN (08:50)
[2022-08-15] MEDS: Pro-Stat SF 30ml Vanilla PO SCH ×2 (09:05→18:00)
[2022-08-15] MEDS: DexAMETHasone SOD PHOS 10MG/1ML VIAL INJ IV SCH (10:27)
[2022-08-15] MEDS: SODIUM CHLOR 0.9% PF (SALINE LOCK) 10ML VIAL/SYR IV SCH ×2 (10:28→22:00)
[2022-08-15] MEDS: FUROSEMIDE 20 MG/2 ML VIAL IV SCH (10:28)
[2022-08-15] MEDS: amLODIPine BESYLATE 5 MG TAB PO SCH (10:29)
[2022-08-15] MEDS: ENOXAPARIN SOD 80 MG/0.8ML SYRINGE SC SCH ×2 (10:29→22:00)
[2022-08-15] MEDS ORDERED: DEXTROSE (50%) 50ML SYRG IV PRN (12:00)
[2022-08-15] MEDS ORDERED: IBUPROFEN 100MG/5ML ORAL SUSP 100 MG/5 ML UD PO PRN (12:00)
[2022-08-15] MEDS: AMINO ACID INFUSION IN D10W 1,000 ML IV NR (19:49)
[2022-08-15] MEDS ORDERED: TPN PER PHARMACY IV NR ×8 (20:00)
[2022-08-15] MEDS: MELATONIN 5 MG TAB PO SCH (22:00)
[2022-08-15] MEDS: PRAVASTATIN SODIUM 20 MG TAB PO SCH (22:00)
[2022-08-16] VITALS (71 sets, daily range): BP systolic 101–130; BP diastolic 63–84
[2022-08-16] MEDS: ALBUTEROL SULF 2.5 MG/0.5ML(0.5%) NEB SOLN NEB SCH ×4 (00:03→18:00)
[2022-08-16] MEDS: IPRATROPIUM BROM 0.5 MG/2.5ML INH SOL NEB SCH ×4 (00:03→18:00)
[2022-08-16 04:35] LABS: Basophils # (auto) 0.1 10 ^3/uL (0-0.2); Basophils % (auto) 0.6 % (0.0-2.0); Eosinophils # (auto) 0.3 10 ^3/uL (0-0.8); Eosinophils % (auto) 1.4 % (0.0-7.0); Hematocrit 40.1 % (41.0-53.0); Hemoglobin 13.6 g/dL (13.5-17.5); Lymphocytes # (auto) 0.7 10 ^3/uL (0.4-5.4); Lymphocytes % (auto) 3.8 % (10.0-50.0); Mean Corpuscular Hemoglobin 30.5 pg (28.0-32.0); Mean Corpuscular Volume 89.8 fL (80.0-100.0); Monocytes # (auto) 0.6 10 ^3/uL (0-1.3); Monocytes % (auto) 3.2 % (0.0-12.0); Neutrophils # (auto) 16.9 10 ^3/uL (1.6-8.6); Nucleated Red Blood Cells % 0.2 %; Red Blood Cells 4.47 10^6/uL (4.5-5.90); Red Cell Distribution Width 13.4 % (11.8-14.3); White Blood Cell 18.6 10^3/uL (4.4-10.8)
[2022-08-16 04:54] LABS: Albumin 2.2 g/dL (3.4-5.0); Calcium 8.5 mg/dL (8.5-10.1); Magnesium 2.3 mg/dL (1.6-2.6); Potassium 3.9 mmol/L (3.5-5.1)
[2022-08-16 04:56] LABS: BUN/Creatinine Ratio 69.1 (10.0-20.0)
[2022-08-16 04:59] LABS: Bilirubin, Total 0.6 mg/dL (0.2-1.0); Phosphorus 2.4 mg/dL (2.5-4.90); Total Protein 7.1 g/dL (6.4-8.2)
[2022-08-16] MEDS: InsuLIN REG 1unit/0.01ml Soln (100units/ml) SC SCH ×4 (06:00→18:00)
[2022-08-16] MEDS: SALINE 0.65 % NASAL SPRAY 45ML BOTTLE EACHNOSTRI SCH ×4 (06:28→22:39)
[2022-08-16] MEDS: ACCU-CHEK COMFORT CURVE STRIP VI SCH ×4 (06:28→18:00)
[2022-08-16] MEDS: Glucerna Carbsteady SHAKE Vanilla 8oz PO SCH ×4 (08:00→18:00)
[2022-08-16] MEDS: Pro-Stat SF 30ml Vanilla PO SCH ×2 (08:00→18:00)
[2022-08-16] MEDS: ENOXAPARIN SOD 80 MG/0.8ML SYRINGE SC SCH ×2 (08:32→22:41)
[2022-08-16] MEDS: DexAMETHasone SOD PHOS 10MG/1ML VIAL INJ IV SCH (08:32)
[2022-08-16] MEDS: guaiFENesin-DM 100/10mg/5ml SYR PO PRN (08:33)
[2022-08-16] MEDS: amLODIPine BESYLATE 5 MG TAB PO SCH (08:33)
[2022-08-16] MEDS: FUROSEMIDE 20 MG/2 ML VIAL IV SCH (08:34)
[2022-08-16] MEDS: SODIUM CHLOR 0.9% PF (SALINE LOCK) 10ML VIAL/SYR IV SCH ×2 (08:34→22:40)
[2022-08-16] MEDS ORDERED: SODIUM PHOSP 20MEQ(15MMOL) IN NS 100 ML IV ONE (10:00)
[2022-08-16] MEDS: IPRATROPIUM BROM 0.5 MG/2.5ML INH SOL NEB PRN ×2 (16:41→22:18)
[2022-08-16] MEDS: ALBUTEROL SULF 2.5 MG/0.5ML(0.5%) NEB SOLN NEB PRN ×2 (16:42→22:18)
[2022-08-16] MEDS ORDERED: TPN PER PHARMACY IV NR ×10 (20:00)
[2022-08-16] MEDS: PRAVASTATIN SODIUM 20 MG TAB PO SCH (22:40)
[2022-08-16] MEDS: MELATONIN 5 MG TAB PO SCH (22:40)
[2022-08-17] VITALS (30 sets, daily range): BP systolic 98–149; BP diastolic 66–87
[2022-08-17] MEDS: IPRATROPIUM BROM 0.5 MG/2.5ML INH SOL NEB PRN ×2 (02:24→17:05)
[2022-08-17] MEDS: ALBUTEROL SULF 2.5 MG/0.5ML(0.5%) NEB SOLN NEB PRN ×2 (02:24→17:05)
[2022-08-17] MEDS: SALINE 0.65 % NASAL SPRAY 45ML BOTTLE EACHNOSTRI SCH ×4 (06:00→22:24)
[2022-08-17] MEDS: InsuLIN REG 1unit/0.01ml Soln (100units/ml) SC SCH ×4 (06:00→17:52)
[2022-08-17] MEDS: IPRATROPIUM BROM 0.5 MG/2.5ML INH SOL NEB SCH ×4 (06:05→19:13)
[2022-08-17] MEDS: ALBUTEROL SULF 2.5 MG/0.5ML(0.5%) NEB SOLN NEB SCH ×4 (06:05→19:13)
[2022-08-17] MEDS: ACCU-CHEK COMFORT CURVE STRIP VI SCH ×4 (06:06→17:54)
[2022-08-17 06:24] LABS: Potassium 3.3 mmol/L (3.5-5.1)
[2022-08-17 06:32] LABS: Albumin 1.9 g/dL (3.4-5.0); BUN/Creatinine Ratio 83.3 (10.0-20.0); Bilirubin, Total 0.4 mg/dL (0.2-1.0); Calcium 7.1 mg/dL (8.5-10.1); Magnesium 2.1 mg/dL (1.6-2.6); Phosphorus 2.1 mg/dL (2.5-4.90); Total Protein 5.6 g/dL (6.4-8.2)
[2022-08-17] MEDS: Glucerna Carbsteady SHAKE Vanilla 8oz PO SCH ×4 (08:00→18:00)
[2022-08-17] MEDS: Pro-Stat SF 30ml Vanilla PO SCH ×2 (08:00→18:30)
[2022-08-17 09:03] LABS: Basophils # (auto) 0.1 10 ^3/uL (0-0.2); Basophils % (auto) 0.4 % (0.0-2.0); Eosinophils # (auto) 0.9 10 ^3/uL (0-0.8); Hematocrit 42.5 % (41.0-53.0); Hemoglobin 14.1 g/dL (13.5-17.5); Lymphocytes % (auto) 4.1 % (10.0-50.0); Mean Corpuscular Hemoglobin 29.8 pg (28.0-32.0); Mean Corpuscular Hgb Conc. 33.2 g/dL (32.0-36.0); Mean Corpuscular Volume 89.8 fL (80.0-100.0); Monocytes # (auto) 0.6 10 ^3/uL (0-1.3); Monocytes % (auto) 2.6 % (0.0-12.0); Neutrophils # (auto) 20.8 10 ^3/uL (1.6-8.6); Neutrophils % (auto) 88.9 % (37.0-80.0); Red Blood Cells 4.73 10^6/uL (4.5-5.90); Red Cell Distribution Width 13.7 % (11.8-14.3); White Blood Cell 23.3 10^3/uL (4.4-10.8)
[2022-08-17] MEDS ORDERED: POTASSIUM PHOSP 22MEQ(15MMOLE) in NS 100 ML IV ONE (09:15)
[2022-08-17] MEDS: amLODIPine BESYLATE 5 MG TAB PO SCH (10:00)
[2022-08-17] MEDS: FUROSEMIDE 20 MG/2 ML VIAL IV SCH (10:15)
[2022-08-17] MEDS: SODIUM CHLOR 0.9% PF (SALINE LOCK) 10ML VIAL/SYR IV SCH ×2 (10:16→22:24)
[2022-08-17] MEDS: ENOXAPARIN SOD 80 MG/0.8ML SYRINGE SC SCH ×2 (10:16→22:23)
[2022-08-17] MEDS ORDERED: DexAMETHasone SOD PHOS 10MG/1ML VIAL INJ IV ONE (11:30)
[2022-08-17] MEDS: TPN PER PHARMACY IV NR ×10 (20:34)
[2022-08-17] MEDS: MELATONIN 5 MG TAB PO SCH (22:23)
[2022-08-17] MEDS: PRAVASTATIN SODIUM 20 MG TAB PO SCH (22:23)
[2022-08-18] VITALS (26 sets, daily range): BP systolic 101–134; BP diastolic 68–86
[2022-08-18] MEDS: IPRATROPIUM BROM 0.5 MG/2.5ML INH SOL NEB SCH ×4 (00:15→18:52)
[2022-08-18] MEDS: ALBUTEROL SULF 2.5 MG/0.5ML(0.5%) NEB SOLN NEB SCH ×4 (00:16→18:52)
[2022-08-18] MEDS: InsuLIN REG 1unit/0.01ml Soln (100units/ml) SC SCH ×4 (00:55→19:11)
[2022-08-18] MEDS: ACCU-CHEK COMFORT CURVE STRIP VI SCH ×4 (00:55→19:05)
[2022-08-18 03:44] LABS: Basophils # (auto) 0.1 10 ^3/uL (0-0.2); Basophils % (auto) 0.3 % (0.0-2.0); Eosinophils # (auto) 0.1 10 ^3/uL (0-0.8); Eosinophils % (auto) 0.4 % (0.0-7.0); Hematocrit 37.6 % (41.0-53.0); Hemoglobin 12.7 g/dL (13.5-17.5); Lymphocytes # (auto) 0.5 10 ^3/uL (0.4-5.4); Lymphocytes % (auto) 2.8 % (10.0-50.0); Mean Corpuscular Hemoglobin 30.5 pg (28.0-32.0); Mean Corpuscular Hgb Conc. 33.6 g/dL (32.0-36.0); Mean Corpuscular Volume 90.8 fL (80.0-100.0); Monocytes # (auto) 0.4 10 ^3/uL (0-1.3); Monocytes % (auto) 2.6 % (0.0-12.0); Neutrophils # (auto) 16.2 10 ^3/uL (1.6-8.6); Neutrophils % (auto) 93.9 % (37.0-80.0); Red Blood Cells 4.15 10^6/uL (4.5-5.90); Red Cell Distribution Width 13.6 % (11.8-14.3); White Blood Cell 17.2 10^3/uL (4.4-10.8)
[2022-08-18 04:06] LABS: Calcium 7.9 mg/dL (8.5-10.1); Magnesium 2.6 mg/dL (1.6-2.6); Potassium 3.8 mmol/L (3.5-5.1)
[2022-08-18 04:10] LABS: BUN/Creatinine Ratio 79.1 (10.0-20.0); Bilirubin, Total 0.4 mg/dL (0.2-1.0); Phosphorus 2.9 mg/dL (2.5-4.90); Total Protein 6.5 g/dL (6.4-8.2)
[2022-08-18] MEDS: guaiFENesin-DM 100/10mg/5ml SYR PO PRN ×2 (04:36→13:51)
[2022-08-18] MEDS: SALINE 0.65 % NASAL SPRAY 45ML BOTTLE EACHNOSTRI SCH ×4 (06:37→22:51)
[2022-08-18] MEDS: Glucerna Carbsteady SHAKE Vanilla 8oz PO SCH ×4 (08:00→18:00)
[2022-08-18] MEDS: Pro-Stat SF 30ml Vanilla PO SCH ×2 (09:43→19:30)
[2022-08-18] MEDS: SODIUM CHLOR 0.9% PF (SALINE LOCK) 10ML VIAL/SYR IV SCH ×2 (09:50→22:51)
[2022-08-18] MEDS: ENOXAPARIN SOD 80 MG/0.8ML SYRINGE SC SCH ×2 (09:59→22:50)
[2022-08-18] MEDS: amLODIPine BESYLATE 5 MG TAB PO SCH (09:59)
[2022-08-18] MEDS: FUROSEMIDE 20 MG/2 ML VIAL IV SCH (10:00)
[2022-08-18] MEDS: DexAMETHasone SOD PHOS 10MG/1ML VIAL INJ IV SCH (10:00)
[2022-08-18] MEDS: TPN PER PHARMACY IV NR ×21 (19:54→20:59)
[2022-08-18] MEDS: MELATONIN 5 MG TAB PO SCH (22:51)
[2022-08-18] MEDS: PRAVASTATIN SODIUM 20 MG TAB PO SCH (22:51)
[2022-08-19] VITALS (48 sets, daily range): BP systolic 99–142; BP diastolic 67–83
[2022-08-19] MEDS: IPRATROPIUM BROM 0.5 MG/2.5ML INH SOL NEB SCH ×4 (00:22→19:07)
[2022-08-19] MEDS: ALBUTEROL SULF 2.5 MG/0.5ML(0.5%) NEB SOLN NEB SCH ×4 (00:22→19:07)
[2022-08-19] MEDS: InsuLIN REG 1unit/0.01ml Soln (100units/ml) SC SCH ×4 (01:09→18:00)
[2022-08-19] MEDS: ACCU-CHEK COMFORT CURVE STRIP VI SCH ×4 (01:10→18:00)
[2022-08-19] MEDS: guaiFENesin-DM 100/10mg/5ml SYR PO PRN ×3 (01:53→22:37)
[2022-08-19 05:34] LABS: Basophils # (auto) 0 10 ^3/uL (0-0.2); Basophils % (auto) 0.2 % (0.0-2.0); Eosinophils # (auto) 0.2 10 ^3/uL (0-0.8); Eosinophils % (auto) 1.3 % (0.0-7.0); Hematocrit 38.4 % (41.0-53.0); Hemoglobin 13.1 g/dL (13.5-17.5); Lymphocytes # (auto) 0.7 10 ^3/uL (0.4-5.4); Lymphocytes % (auto) 3.5 % (10.0-50.0); Mean Corpuscular Hgb Conc. 34.1 g/dL (32.0-36.0); Mean Corpuscular Volume 90.9 fL (80.0-100.0); Monocytes # (auto) 0.6 10 ^3/uL (0-1.3); Monocytes % (auto) 3.3 % (0.0-12.0); Neutrophils # (auto) 17.6 10 ^3/uL (1.6-8.6); Neutrophils % (auto) 91.7 % (37.0-80.0); Red Blood Cells 4.23 10^6/uL (4.5-5.90); Red Cell Distribution Width 13.6 % (11.8-14.3); White Blood Cell 19.2 10^3/uL (4.4-10.8)
[2022-08-19 05:40] LABS: Albumin 2.1 g/dL (3.4-5.0); BUN/Creatinine Ratio 71.4 (10.0-20.0); Calcium 8.6 mg/dL (8.5-10.1); Magnesium 2.3 mg/dL (1.6-2.6); Potassium 4.1 mmol/L (3.5-5.1)
[2022-08-19 05:43] LABS: Bilirubin, Total 0.5 mg/dL (0.2-1.0); Phosphorus 3.6 mg/dL (2.5-4.90); Total Protein 6.9 g/dL (6.4-8.2)
[2022-08-19] MEDS: SALINE 0.65 % NASAL SPRAY 45ML BOTTLE EACHNOSTRI SCH ×4 (06:54→22:20)
[2022-08-19] MEDS: Glucerna Carbsteady SHAKE Vanilla 8oz PO SCH ×4 (08:00→18:00)
[2022-08-19] MEDS: Pro-Stat SF 30ml Vanilla PO SCH ×2 (08:00→18:00)
[2022-08-19] MEDS: DexAMETHasone SOD PHOS 10MG/1ML VIAL INJ IV SCH (09:26)
[2022-08-19] MEDS: amLODIPine BESYLATE 5 MG TAB PO SCH (09:26)
[2022-08-19] MEDS: ENOXAPARIN SOD 80 MG/0.8ML SYRINGE SC SCH ×2 (09:27→22:20)
[2022-08-19] MEDS: FUROSEMIDE 20 MG/2 ML VIAL IV SCH (09:27)
[2022-08-19] MEDS: SODIUM CHLOR 0.9% PF (SALINE LOCK) 10ML VIAL/SYR IV SCH ×2 (09:27→22:20)
[2022-08-19] MEDS: TPN PER PHARMACY IV NR ×23 (19:55→20:07)
[2022-08-19] MEDS: MELATONIN 5 MG TAB PO SCH (22:20)
[2022-08-19] MEDS: PRAVASTATIN SODIUM 20 MG TAB PO SCH (22:20)
[2022-08-20] VITALS (54 sets, daily range): BP systolic 98–151; BP diastolic 51–99
[2022-08-20] MEDS: ACCU-CHEK COMFORT CURVE STRIP VI SCH ×4 (00:14→18:00)
[2022-08-20] MEDS: InsuLIN REG 1unit/0.01ml Soln (100units/ml) SC SCH ×4 (00:14→18:45)
[2022-08-20] MEDS: ALBUTEROL SULF 2.5 MG/0.5ML(0.5%) NEB SOLN NEB SCH ×4 (01:04→18:20)
[2022-08-20] MEDS: IPRATROPIUM BROM 0.5 MG/2.5ML INH SOL NEB SCH ×4 (01:04→18:19)
[2022-08-20] MEDS: SALINE 0.65 % NASAL SPRAY 45ML BOTTLE EACHNOSTRI SCH ×4 (05:59→22:15)
[2022-08-20 06:44] LABS: Basophils # (auto) 0.1 10 ^3/uL (0-0.2); Basophils % (auto) 0.8 % (0.0-2.0); Eosinophils # (auto) 0.1 10 ^3/uL (0-0.8); Eosinophils % (auto) 0.4 % (0.0-7.0); Hemoglobin 13.4 g/dL (13.5-17.5); Lymphocytes # (auto) 0.5 10 ^3/uL (0.4-5.4); Lymphocytes % (auto) 2.8 % (10.0-50.0); Mean Corpuscular Hemoglobin 30.1 pg (28.0-32.0); Mean Corpuscular Hgb Conc. 33.4 g/dL (32.0-36.0); Mean Corpuscular Volume 90.4 fL (80.0-100.0); Monocytes # (auto) 0.7 10 ^3/uL (0-1.3); Monocytes % (auto) 3.5 % (0.0-12.0); Neutrophils # (auto) 17.7 10 ^3/uL (1.6-8.6); Neutrophils % (auto) 92.5 % (37.0-80.0); Nucleated Red Blood Cells % 0.1 %; Red Blood Cells 4.43 10^6/uL (4.5-5.90); Red Cell Distribution Width 13.5 % (11.8-14.3); White Blood Cell 19.1 10^3/uL (4.4-10.8)
[2022-08-20 06:48] LABS: BUN/Creatinine Ratio 76.3 (10.0-20.0); Calcium 8.8 mg/dL (8.5-10.1); Potassium 4.2 mmol/L (3.5-5.1)
[2022-08-20 07:00] LABS: Albumin 2.2 g/dL (3.4-5.0); Bilirubin, Total 0.5 mg/dL (0.2-1.0); Magnesium 2.6 mg/dL (1.6-2.6); Phosphorus 3.5 mg/dL (2.5-4.90); Total Protein 7.2 g/dL (6.4-8.2)
[2022-08-20] MEDS: Pro-Stat SF 30ml Vanilla PO SCH ×2 (08:00→18:00)
[2022-08-20] MEDS: Glucerna Carbsteady SHAKE Vanilla 8oz PO SCH ×4 (08:00→18:00)
[2022-08-20] MEDS: SODIUM CHLOR 0.9% PF (SALINE LOCK) 10ML VIAL/SYR IV SCH ×2 (10:00→22:15)
[2022-08-20] MEDS: FUROSEMIDE 20 MG/2 ML VIAL IV SCH (10:50)
[2022-08-20] MEDS: DexAMETHasone SOD PHOS 10MG/1ML VIAL INJ IV SCH (10:50)
[2022-08-20] MEDS: ENOXAPARIN SOD 80 MG/0.8ML SYRINGE SC SCH ×2 (10:51→22:14)
[2022-08-20] MEDS: amLODIPine BESYLATE 5 MG TAB PO SCH (10:52)
[2022-08-20] MEDS ORDERED: SENNA 8.6 MG TAB PO ONE (11:15)
[2022-08-20] MEDS: ACETAMINOPHEN 650 mg PER 20.3 mL UD PO PRN (13:58)
[2022-08-20] MEDS: TPN PER PHARMACY IV NR ×23 (18:51→18:59)
[2022-08-20] MEDS: ALPRAZolam 0.25 MG TAB PO PRN (19:58)
[2022-08-20] MEDS: PRAVASTATIN SODIUM 20 MG TAB PO SCH (22:13)
[2022-08-20] MEDS: SENNA 8.6 MG TAB PO SCH (22:14)
[2022-08-20] MEDS: MELATONIN 5 MG TAB PO SCH (22:15)
[2022-08-21] VITALS (36 sets, daily range): BP systolic 100–177; BP diastolic 64–92
[2022-08-21] MEDS: ACCU-CHEK COMFORT CURVE STRIP VI SCH ×4 (00:09→18:44)
[2022-08-21] MEDS: IPRATROPIUM BROM 0.5 MG/2.5ML INH SOL NEB SCH ×3 (00:14→18:21)
[2022-08-21] MEDS: ALBUTEROL SULF 2.5 MG/0.5ML(0.5%) NEB SOLN NEB SCH ×3 (00:14→18:21)
[2022-08-21] MEDS: InsuLIN REG 1unit/0.01ml Soln (100units/ml) SC SCH ×4 (00:27→18:44)
[2022-08-21] MEDS: ALPRAZolam 0.25 MG TAB PO PRN (01:20)
[2022-08-21] MEDS ORDERED: LORazepam 2MG/ML-1ML VIAL IM ONE (02:45)
[2022-08-21 04:21] LABS: Basophils # (auto) 0.1 10 ^3/uL (0-0.2); Basophils % (auto) 0.4 % (0.0-2.0); Eosinophils # (auto) 0 10 ^3/uL (0-0.8); Eosinophils % (auto) 0.1 % (0.0-7.0); Hematocrit 41.3 % (41.0-53.0); Lymphocytes # (auto) 0.6 10 ^3/uL (0.4-5.4); Lymphocytes % (auto) 2.6 % (10.0-50.0); Mean Corpuscular Volume 91.3 fL (80.0-100.0); Monocytes # (auto) 0.9 10 ^3/uL (0-1.3); Monocytes % (auto) 3.8 % (0.0-12.0); Neutrophils # (auto) 22.5 10 ^3/uL (1.6-8.6); Neutrophils % (auto) 93.1 % (37.0-80.0); Nucleated Red Blood Cells % 0.1 %; Red Blood Cells 4.52 10^6/uL (4.5-5.90); Red Cell Distribution Width 13.5 % (11.8-14.3); White Blood Cell 24.1 10^3/uL (4.4-10.8)
[2022-08-21 04:22] LABS: Albumin 2.4 g/dL (3.4-5.0); Calcium 9.2 mg/dL (8.5-10.1); Magnesium 2.5 mg/dL (1.6-2.6); Potassium 3.8 mmol/L (3.5-5.1)
[2022-08-21 04:26] LABS: BUN/Creatinine Ratio 84.9 (10.0-20.0); Bilirubin, Total 0.4 mg/dL (0.2-1.0); Total Protein 7.7 g/dL (6.4-8.2)
[2022-08-21] MEDS: SALINE 0.65 % NASAL SPRAY 45ML BOTTLE EACHNOSTRI SCH ×4 (06:00→21:36)
[2022-08-21] MEDS: Glucerna Carbsteady SHAKE Vanilla 8oz PO SCH ×4 (07:56→18:43)
[2022-08-21] MEDS: amLODIPine BESYLATE 5 MG TAB PO SCH (07:57)
[2022-08-21] MEDS: Pro-Stat SF 30ml Vanilla PO SCH ×2 (07:57→18:43)
[2022-08-21] MEDS ORDERED: MORPHINE SULFATE INJ 2 MG/ml SYRG ONE (08:13)
[2022-08-21] MEDS ORDERED: MORPHINE SULFATE INJ 2 MG/ml SYRG IV ONE (08:15)
[2022-08-21] MEDS: ENOXAPARIN SOD 80 MG/0.8ML SYRINGE SC SCH ×2 (10:17→21:52)
[2022-08-21] MEDS: SODIUM CHLOR 0.9% PF (SALINE LOCK) 10ML VIAL/SYR IV SCH ×2 (10:17→22:15)
[2022-08-21] MEDS: DexAMETHasone SOD PHOS 10MG/1ML VIAL INJ IV SCH (10:18)
[2022-08-21] MEDS: FUROSEMIDE 20 MG/2 ML VIAL IV SCH (10:18)
[2022-08-21] MEDS ORDERED: METOPROLOL TARTRATE 1MG/1ML-5ML VIAL IV ONE ×2 (11:16→11:45)
[2022-08-21] MEDS ORDERED: METOPROLOL TARTRATE 1MG/1ML-5ML VIAL IV PRN (11:45)
[2022-08-21] MEDS ORDERED: TPN PER PHARMACY IV NR ×20 (13:15→20:00)
[2022-08-21] MEDS: PIPERACILLIN-TAZOB 3.375GM 100 ML IV SCH ×2 (13:50→20:01)
[2022-08-21] MEDS: TPN PER PHARMACY IV NR ×11 (19:55)
[2022-08-21] MEDS: PRAVASTATIN SODIUM 20 MG TAB PO SCH (21:37)
[2022-08-21] MEDS: MELATONIN 5 MG TAB PO SCH (21:37)
[2022-08-21] MEDS: SENNA 8.6 MG TAB PO SCH (21:37)
[2022-08-21] MEDS: MORPHINE SULFATE INJ 2 MG/ml SYRG IV PRN (21:52)
[2022-08-22] VITALS (31 sets, daily range): BP systolic 108–159; BP diastolic 57–93
[2022-08-22] MEDS: ALBUTEROL SULF 2.5 MG/0.5ML(0.5%) NEB SOLN NEB SCH ×4 (00:01→18:45)
[2022-08-22] MEDS: IPRATROPIUM BROM 0.5 MG/2.5ML INH SOL NEB SCH ×4 (00:01→18:45)
[2022-08-22] MEDS: PIPERACILLIN-TAZOB 3.375GM 100 ML IV SCH ×3 (04:15→19:39)
[2022-08-22 04:22] LABS: Basophils # (auto) 0.1 10 ^3/uL (0-0.2); Basophils % (auto) 0.3 % (0.0-2.0); Eosinophils # (auto) 0.1 10 ^3/uL (0-0.8); Eosinophils % (auto) 0.6 % (0.0-7.0); Hematocrit 42.3 % (41.0-53.0); Hemoglobin 14.1 g/dL (13.5-17.5); Lymphocytes # (auto) 0.5 10 ^3/uL (0.4-5.4); Lymphocytes % (auto) 2.3 % (10.0-50.0); Mean Corpuscular Hemoglobin 30.2 pg (28.0-32.0); Mean Corpuscular Hgb Conc. 33.3 g/dL (32.0-36.0); Mean Corpuscular Volume 90.6 fL (80.0-100.0); Monocytes # (auto) 0.7 10 ^3/uL (0-1.3); Monocytes % (auto) 3.5 % (0.0-12.0); Neutrophils % (auto) 93.3 % (37.0-80.0); Nucleated Red Blood Cells % 0.1 %; Red Blood Cells 4.67 10^6/uL (4.5-5.90); White Blood Cell 20.4 10^3/uL (4.4-10.8)
[2022-08-22 04:44] LABS: Albumin 2.3 g/dL (3.4-5.0); Calcium 8.7 mg/dL (8.5-10.1); Magnesium 2.6 mg/dL (1.6-2.6); Potassium 3.7 mmol/L (3.5-5.1)
[2022-08-22 04:48] LABS: BUN/Creatinine Ratio 95.1 (10.0-20.0); Bilirubin, Total 0.5 mg/dL (0.2-1.0); Phosphorus 2.8 mg/dL (2.5-4.90); Total Protein 7.2 g/dL (6.4-8.2)
[2022-08-22] MEDS: SALINE 0.65 % NASAL SPRAY 45ML BOTTLE EACHNOSTRI SCH ×4 (06:00→21:40)
[2022-08-22] MEDS: MORPHINE SULFATE INJ 2 MG/ml SYRG IV PRN ×2 (06:28→15:52)
[2022-08-22] MEDS: InsuLIN REG 1unit/0.01ml Soln (100units/ml) SC SCH ×5 (06:38→23:52)
[2022-08-22] MEDS: ACCU-CHEK COMFORT CURVE STRIP VI SCH ×5 (06:38→23:53)
[2022-08-22] MEDS: Pro-Stat SF 30ml Vanilla PO SCH ×2 (07:57→18:00)
[2022-08-22] MEDS: Glucerna Carbsteady SHAKE Vanilla 8oz PO SCH ×4 (07:58→18:00)
[2022-08-22] MEDS: amLODIPine BESYLATE 5 MG TAB PO SCH (09:07)
[2022-08-22] MEDS: DexAMETHasone SOD PHOS 10MG/1ML VIAL INJ IV SCH (09:08)
[2022-08-22] MEDS: FUROSEMIDE 20 MG/2 ML VIAL IV SCH (09:08)
[2022-08-22] MEDS: ENOXAPARIN SOD 80 MG/0.8ML SYRINGE SC SCH ×2 (09:09→21:40)
[2022-08-22] MEDS: SODIUM CHLOR 0.9% PF (SALINE LOCK) 10ML VIAL/SYR IV SCH ×2 (09:16→21:39)
[2022-08-22] MEDS ORDERED: TPN PER PHARMACY IV NR ×8 (20:00)
[2022-08-22] MEDS: MELATONIN 5 MG TAB PO SCH (21:40)
[2022-08-22] MEDS: PRAVASTATIN SODIUM 20 MG TAB PO SCH (21:41)
[2022-08-22] MEDS: SENNA 8.6 MG TAB PO SCH (21:41)
[2022-08-23] VITALS (31 sets, daily range): BP systolic 109–139; BP diastolic 68–89
[2022-08-23] MEDS: MORPHINE SULFATE INJ 2 MG/ml SYRG IV PRN ×2 (00:47→13:31)
[2022-08-23] MEDS: ALBUTEROL SULF 2.5 MG/0.5ML(0.5%) NEB SOLN NEB SCH ×5 (01:02→23:05)
[2022-08-23] MEDS: IPRATROPIUM BROM 0.5 MG/2.5ML INH SOL NEB SCH ×5 (01:02→23:05)
[2022-08-23] MEDS: PIPERACILLIN-TAZOB 3.375GM 100 ML IV SCH ×3 (03:40→19:42)
[2022-08-23 04:32] LABS: Albumin 2.2 g/dL (3.4-5.0); Calcium 8.5 mg/dL (8.5-10.1); Magnesium 2.7 mg/dL (1.6-2.6); Potassium 3.8 mmol/L (3.5-5.1)
[2022-08-23 04:36] LABS: BUN/Creatinine Ratio 86.9 (10.0-20.0); Bilirubin, Total 0.4 mg/dL (0.2-1.0)
[2022-08-23] MEDS: SALINE 0.65 % NASAL SPRAY 45ML BOTTLE EACHNOSTRI SCH ×4 (06:03→21:58)
[2022-08-23] MEDS: InsuLIN REG 1unit/0.01ml Soln (100units/ml) SC SCH ×4 (06:07→23:55)
[2022-08-23] MEDS: ACCU-CHEK COMFORT CURVE STRIP VI SCH ×4 (06:07→23:54)
[2022-08-23] MEDS ORDERED: ASPI-498 PO (07:10)
[2022-08-23] MEDS ORDERED: PRAV20TA3 PO (07:10)
[2022-08-23] MEDS: Pro-Stat SF 30ml Vanilla PO SCH ×2 (07:21→17:58)
[2022-08-23] MEDS: Glucerna Carbsteady SHAKE Vanilla 8oz PO SCH ×4 (08:01→17:58)
[2022-08-23] MEDS: ENOXAPARIN SOD 80 MG/0.8ML SYRINGE SC SCH ×2 (09:43→21:58)
[2022-08-23] MEDS: FUROSEMIDE 20 MG/2 ML VIAL IV SCH (09:43)
[2022-08-23] MEDS: DexAMETHasone SOD PHOS 10MG/1ML VIAL INJ IV SCH (09:43)
[2022-08-23] MEDS: SODIUM CHLOR 0.9% PF (SALINE LOCK) 10ML VIAL/SYR IV SCH ×2 (09:44→21:58)
[2022-08-23] MEDS: amLODIPine BESYLATE 5 MG TAB PO SCH ×2 (10:00→11:50)
[2022-08-23] MEDS ORDERED: LACTULOSE 20Gm/30ML SOLN PO PRN (11:00)
[2022-08-23] MEDS ORDERED: TPN PER PHARMACY IV NR ×8 (20:00)
[2022-08-23] MEDS: PRAVASTATIN SODIUM 20 MG TAB PO SCH (21:58)
[2022-08-23] MEDS: MELATONIN 5 MG TAB PO SCH (21:58)
[2022-08-23] MEDS: SENNA 8.6 MG TAB PO SCH (21:59)
[2022-08-24] VITALS (33 sets, daily range): BP systolic 102–139; BP diastolic 67–89
[2022-08-24] MEDS: MORPHINE SULFATE INJ 2 MG/ml SYRG IV PRN ×3 (01:54→20:03)
[2022-08-24] MEDS: IPRATROPIUM BROM 0.5 MG/2.5ML INH SOL NEB PRN (02:16)
[2022-08-24] MEDS: ALBUTEROL SULF 2.5 MG/0.5ML(0.5%) NEB SOLN NEB PRN (02:16)
[2022-08-24 04:23] LABS: Basophils # (auto) 0.1 10 ^3/uL (0-0.2); Basophils % (auto) 0.5 % (0.0-2.0); Eosinophils # (auto) 0 10 ^3/uL (0-0.8); Eosinophils % (auto) 0.2 % (0.0-7.0); Hematocrit 42.1 % (41.0-53.0); Hemoglobin 14.1 g/dL (13.5-17.5); Lymphocytes # (auto) 0.6 10 ^3/uL (0.4-5.4); Lymphocytes % (auto) 3.7 % (10.0-50.0); Mean Corpuscular Hemoglobin 31.1 pg (28.0-32.0); Mean Corpuscular Hgb Conc. 33.4 g/dL (32.0-36.0); Mean Corpuscular Volume 93.2 fL (80.0-100.0); Monocytes # (auto) 0.7 10 ^3/uL (0-1.3); Monocytes % (auto) 4.4 % (0.0-12.0); Neutrophils # (auto) 13.8 10 ^3/uL (1.6-8.6); Neutrophils % (auto) 91.2 % (37.0-80.0); Red Blood Cells 4.52 10^6/uL (4.5-5.90); Red Cell Distribution Width 14.1 % (11.8-14.3); White Blood Cell 15.1 10^3/uL (4.4-10.8)
[2022-08-24] MEDS: PIPERACILLIN-TAZOB 3.375GM 100 ML IV SCH ×3 (04:29→19:43)
[2022-08-24 04:41] LABS: Albumin 2.2 g/dL (3.4-5.0); Magnesium 2.5 mg/dL (1.6-2.6); Potassium 3.4 mmol/L (3.5-5.1)
[2022-08-24 04:45] LABS: BUN/Creatinine Ratio 82.1 (10.0-20.0); Bilirubin, Total 0.5 mg/dL (0.2-1.0); Phosphorus 3.4 mg/dL (2.5-4.90); Total Protein 7.1 g/dL (6.4-8.2)
[2022-08-24] MEDS: IPRATROPIUM BROM 0.5 MG/2.5ML INH SOL NEB SCH ×3 (06:10→19:22)
[2022-08-24] MEDS: ALBUTEROL SULF 2.5 MG/0.5ML(0.5%) NEB SOLN NEB SCH ×3 (06:10→19:22)
[2022-08-24] MEDS: ACCU-CHEK COMFORT CURVE STRIP VI SCH ×4 (06:22→23:31)
[2022-08-24] MEDS: InsuLIN REG 1unit/0.01ml Soln (100units/ml) SC SCH ×4 (06:31→23:33)
[2022-08-24] MEDS: SALINE 0.65 % NASAL SPRAY 45ML BOTTLE EACHNOSTRI SCH ×4 (06:32→21:54)
[2022-08-24] MEDS: INSULIN LANTUS (GLARGINE) 1 /0.01ml (100units/ml) SC SCH (06:32)
[2022-08-24] MEDS: Glucerna Carbsteady SHAKE Vanilla 8oz PO SCH ×4 (08:00→17:59)
[2022-08-24] MEDS: Pro-Stat SF 30ml Vanilla PO SCH ×2 (08:00→17:59)
[2022-08-24] MEDS ORDERED: POTASSIUM CHL 20MEQ/100ML 100 ML IV ONE (09:00)
[2022-08-24] MEDS: amLODIPine BESYLATE 5 MG TAB PO SCH (10:00)
[2022-08-24] MEDS: ENOXAPARIN SOD 80 MG/0.8ML SYRINGE SC SCH ×2 (10:00→21:54)
[2022-08-24] MEDS: DexAMETHasone SOD PHOS 10MG/1ML VIAL INJ IV SCH (10:18)
[2022-08-24] MEDS: SODIUM CHLOR 0.9% PF (SALINE LOCK) 10ML VIAL/SYR IV SCH ×2 (10:19→21:54)
[2022-08-24] MEDS: FUROSEMIDE 20 MG/2 ML VIAL IV SCH (10:19)
[2022-08-24] MEDS ORDERED: DOCUSATE ORAL LIQUID 100 MG/10 ML UD PO ONE (11:15)
[2022-08-24] MEDS ORDERED: TPN PER PHARMACY IV NR ×9 (20:00)
[2022-08-24] MEDS: MELATONIN 5 MG TAB PO SCH (21:54)
[2022-08-24] MEDS: SENNA 8.6 MG TAB PO SCH (21:54)
[2022-08-24] MEDS: PRAVASTATIN SODIUM 20 MG TAB PO SCH (21:54)
[2022-08-25] VITALS (30 sets, daily range): BP systolic 99–136; BP diastolic 55–88
[2022-08-25] MEDS: ALBUTEROL SULF 2.5 MG/0.5ML(0.5%) NEB SOLN NEB SCH ×4 (00:01→18:18)
[2022-08-25] MEDS: IPRATROPIUM BROM 0.5 MG/2.5ML INH SOL NEB SCH ×4 (00:01→18:18)
[2022-08-25] MEDS: MORPHINE SULFATE INJ 2 MG/ml SYRG IV PRN ×2 (01:09→19:57)
[2022-08-25] MEDS: PIPERACILLIN-TAZOB 3.375GM 100 ML IV SCH ×3 (03:35→19:59)
[2022-08-25 04:08] LABS: Basophils # (auto) 0 10 ^3/uL (0-0.2); Basophils % (auto) 0.2 % (0.0-2.0); Eosinophils # (auto) 0 10 ^3/uL (0-0.8); Eosinophils % (auto) 0.1 % (0.0-7.0); Hematocrit 41.6 % (41.0-53.0); Hemoglobin 13.5 g/dL (13.5-17.5); Lymphocytes # (auto) 0.4 10 ^3/uL (0.4-5.4); Lymphocytes % (auto) 2.7 % (10.0-50.0); Mean Corpuscular Hemoglobin 30.5 pg (28.0-32.0); Mean Corpuscular Hgb Conc. 32.4 g/dL (32.0-36.0); Monocytes # (auto) 0.6 10 ^3/uL (0-1.3); Monocytes % (auto) 4.1 % (0.0-12.0); Neutrophils # (auto) 13.1 10 ^3/uL (1.6-8.6); Neutrophils % (auto) 92.9 % (37.0-80.0); Red Blood Cells 4.42 10^6/uL (4.5-5.90); Red Cell Distribution Width 13.7 % (11.8-14.3); White Blood Cell 14.1 10^3/uL (4.4-10.8)
[2022-08-25 04:30] LABS: Potassium 3.9 mmol/L (3.5-5.1)
[2022-08-25 04:36] LABS: Albumin 2.2 g/dL (3.4-5.0); BUN/Creatinine Ratio 89.3 (10.0-20.0); Bilirubin, Total 0.3 mg/dL (0.2-1.0); Calcium 8.4 mg/dL (8.5-10.1); Magnesium 2.5 mg/dL (1.6-2.6); Total Protein 6.7 g/dL (6.4-8.2)
[2022-08-25] MEDS: ACCU-CHEK COMFORT CURVE STRIP VI SCH ×3 (05:57→17:44)
[2022-08-25] MEDS: InsuLIN REG 1unit/0.01ml Soln (100units/ml) SC SCH ×3 (05:57→17:45)
[2022-08-25] MEDS: SALINE 0.65 % NASAL SPRAY 45ML BOTTLE EACHNOSTRI SCH ×4 (06:00→22:12)
[2022-08-25] MEDS: INSULIN LANTUS (GLARGINE) 1 /0.01ml (100units/ml) SC SCH (06:02)
[2022-08-25] MEDS: Pro-Stat SF 30ml Vanilla PO SCH ×2 (08:18→17:54)
[2022-08-25] MEDS: Glucerna Carbsteady SHAKE Vanilla 8oz PO SCH ×4 (08:18→17:54)
[2022-08-25] MEDS: ENOXAPARIN SOD 80 MG/0.8ML SYRINGE SC SCH ×2 (09:39→22:12)
[2022-08-25] MEDS: amLODIPine BESYLATE 5 MG TAB PO SCH (09:40)
[2022-08-25] MEDS: DexAMETHasone SOD PHOS 10MG/1ML VIAL INJ IV SCH (09:40)
[2022-08-25] MEDS: FUROSEMIDE 20 MG/2 ML VIAL IV SCH (09:41)
[2022-08-25] MEDS: ACETAMINOPHEN 650 mg PER 20.3 mL UD PO PRN (09:46)
[2022-08-25] MEDS: SODIUM CHLOR 0.9% PF (SALINE LOCK) 10ML VIAL/SYR IV SCH ×2 (11:12→22:12)
[2022-08-25] MEDS ORDERED: POLYETHYLENE GLYCOL 17 GM PWDR PO PRN (19:45)
[2022-08-25] MEDS ORDERED: BISACODYL 10 MG RECT SUPP PR ONE (19:45)
[2022-08-25] MEDS ORDERED: TPN PER PHARMACY IV NR ×9 (20:00)
[2022-08-25] MEDS ORDERED: FLEET ENEMA(ADULT) 135 ML PR ONE (21:30)
[2022-08-25] MEDS: MELATONIN 5 MG TAB PO SCH (22:00)
[2022-08-25] MEDS: SENNA 8.6 MG TAB PO SCH (22:00)
[2022-08-25] MEDS: PRAVASTATIN SODIUM 20 MG TAB PO SCH (22:00)
[2022-08-26] VITALS (38 sets, daily range): BP systolic 93–132; BP diastolic 50–89
[2022-08-26] MEDS: IPRATROPIUM BROM 0.5 MG/2.5ML INH SOL NEB SCH ×4 (00:06→18:14)
[2022-08-26] MEDS: ALBUTEROL SULF 2.5 MG/0.5ML(0.5%) NEB SOLN NEB SCH ×4 (00:06→18:14)
[2022-08-26 03:39] LABS: Basophils # (auto) 0 10 ^3/uL (0-0.2)
[2022-08-26 03:41] LABS: Nucleated Red Blood Cells % 0.1 %
[2022-08-26] MEDS: PIPERACILLIN-TAZOB 3.375GM 100 ML IV SCH ×3 (04:06→20:26)
[2022-08-26 04:56] LABS: Basophils % (auto) 0.2 % (0.0-2.0); Eosinophils # (auto) 0 10 ^3/uL (0-0.8); Eosinophils % (auto) 0.2 % (0.0-7.0); Hematocrit 41.1 % (41.0-53.0); Lymphocytes # (auto) 0.5 10 ^3/uL (0.4-5.4); Mean Corpuscular Hemoglobin 30.4 pg (28.0-32.0); Mean Corpuscular Hgb Conc. 33.6 g/dL (32.0-36.0); Mean Corpuscular Volume 90.6 fL (80.0-100.0); Monocytes # (auto) 0.7 10 ^3/uL (0-1.3); Monocytes % (auto) 4.1 % (0.0-12.0); Neutrophils # (auto) 15.3 10 ^3/uL (1.6-8.6); Neutrophils % (auto) 92.5 % (37.0-80.0); Red Blood Cells 4.53 10^6/uL (4.5-5.90); Red Cell Distribution Width 13.4 % (11.8-14.3); White Blood Cell 16.5 10^3/uL (4.4-10.8)
[2022-08-26 05:02] LABS: Hemoglobin 13.8 g/dL (13.5-17.5)
[2022-08-26] MEDS: SALINE 0.65 % NASAL SPRAY 45ML BOTTLE EACHNOSTRI SCH ×4 (06:07→21:46)
[2022-08-26] MEDS: ACCU-CHEK COMFORT CURVE STRIP VI SCH ×5 (06:07→23:56)
[2022-08-26] MEDS: InsuLIN REG 1unit/0.01ml Soln (100units/ml) SC SCH ×5 (06:08→23:57)
[2022-08-26] MEDS: INSULIN LANTUS (GLARGINE) 1 /0.01ml (100units/ml) SC SCH (06:37)
[2022-08-26 06:45] LABS: Potassium 3.3 mmol/L (3.5-5.1)
[2022-08-26 06:46] LABS: Albumin 2.1 g/dL (3.4-5.0); BUN/Creatinine Ratio 95.3 (10.0-20.0); Bilirubin, Total 0.4 mg/dL (0.2-1.0); Calcium 8.5 mg/dL (8.5-10.1); Magnesium 2.4 mg/dL (1.6-2.6); Phosphorus 4.5 mg/dL (2.5-4.90); Total Protein 6.8 g/dL (6.4-8.2)
[2022-08-26] MEDS: MORPHINE SULFATE INJ 2 MG/ml SYRG IV PRN (06:56)
[2022-08-26] MEDS: Glucerna Carbsteady SHAKE Vanilla 8oz PO SCH ×4 (08:00→18:00)
[2022-08-26] MEDS: amLODIPine BESYLATE 5 MG TAB PO SCH (08:42)
[2022-08-26] MEDS: ENOXAPARIN SOD 80 MG/0.8ML SYRINGE SC SCH ×2 (08:43→21:58)
[2022-08-26] MEDS: DexAMETHasone SOD PHOS 10MG/1ML VIAL INJ IV SCH (08:43)
[2022-08-26] MEDS: FUROSEMIDE 20 MG/2 ML VIAL IV SCH (08:43)
[2022-08-26] MEDS: Pro-Stat SF 30ml Vanilla PO SCH ×2 (08:45→18:00)
[2022-08-26] MEDS: SODIUM CHLOR 0.9% PF (SALINE LOCK) 10ML VIAL/SYR IV SCH ×2 (08:57→21:46)
[2022-08-26] MEDS ORDERED: POTASSIUM CHL 20MEQ/100ML 100 ML IV ONE (09:45)
[2022-08-26] MEDS: ALPRAZolam 0.25 MG TAB PO PRN (10:26)
[2022-08-26 15:18] LABS: Urine Bacteria NONE SEEN /hpf (None Seen); Urine Blood Negative /uL (Negative); Urine Mucus FEW (None Seen); Urine Specific Gravity 1.021 (1.001-1.035); Urine WBC 1 /hpf (0 - 3)
[2022-08-26] MEDS ORDERED: TPN PER PHARMACY IV NR ×9 (20:00)
[2022-08-26] MEDS: SENNA 8.6 MG TAB PO SCH (21:46)
[2022-08-26] MEDS: PRAVASTATIN SODIUM 20 MG TAB PO SCH (21:46)
[2022-08-26] MEDS: MELATONIN 5 MG TAB PO SCH (21:46)
[2022-08-26] MEDS ORDERED: NOREPINEPHRINE 8 MG/250ML KIT 250 ML IV SCH (22:45)
[2022-08-27] VITALS (104 sets, daily range): BP systolic 89–131; BP diastolic 47–80
[2022-08-27] MEDS: IPRATROPIUM BROM 0.5 MG/2.5ML INH SOL NEB SCH ×4 (00:27→18:22)
[2022-08-27] MEDS: ALBUTEROL SULF 2.5 MG/0.5ML(0.5%) NEB SOLN NEB SCH ×4 (00:27→18:22)
[2022-08-27] MEDS: PIPERACILLIN-TAZOB 3.375GM 100 ML IV SCH ×3 (04:03→19:58)
[2022-08-27 04:27] LABS: Albumin 2.2 g/dL (3.4-5.0); Calcium 8.8 mg/dL (8.5-10.1); Magnesium 2.6 mg/dL (1.6-2.6); Potassium 3.8 mmol/L (3.5-5.1)
[2022-08-27 04:30] LABS: BUN/Creatinine Ratio 98.8 (10.0-20.0); Bilirubin, Total 0.3 mg/dL (0.2-1.0); Total Protein 6.3 g/dL (6.4-8.2)
[2022-08-27 04:42] LABS: Hematocrit 40.1 % (41.0-53.0); Hemoglobin 13.1 g/dL (13.5-17.5); Mean Corpuscular Hemoglobin 30.5 pg (28.0-32.0); Mean Corpuscular Hgb Conc. 32.8 g/dL (32.0-36.0); Mean Corpuscular Volume 93.2 fL (80.0-100.0); Red Blood Cells 4.31 10^6/uL (4.5-5.90); Red Cell Distribution Width 13.6 % (11.8-14.3); White Blood Cell 13.9 10^3/uL (4.4-10.8)
[2022-08-27 04:49] LABS: Basophils % (manual) 0 (0.0-2.0); Blast Cells 0; Eosinophils % (manual) 0 (0-7); Metamyelocytes % 0; Myelocytes % 0; Promyelocytes % 0; Reactive Lymphocytes 0
[2022-08-27] MEDS: MORPHINE SULFATE INJ 2 MG/ml SYRG IV PRN ×2 (05:35→10:46)
[2022-08-27 05:40] LABS: Band Neutrophils % (manual) 6; Lymphocytes % (manual) 1 (10.0-50.0); Monocytes % (manual) 2 (0-12)
[2022-08-27] MEDS: ACCU-CHEK COMFORT CURVE STRIP VI SCH ×3 (06:01→18:01)
[2022-08-27] MEDS: SALINE 0.65 % NASAL SPRAY 45ML BOTTLE EACHNOSTRI SCH ×4 (06:01→22:00)
[2022-08-27] MEDS: InsuLIN REG 1unit/0.01ml Soln (100units/ml) SC SCH ×3 (06:04→18:01)
[2022-08-27] MEDS: INSULIN LANTUS (GLARGINE) 1 /0.01ml (100units/ml) SC SCH (06:36)
[2022-08-27] MEDS: Glucerna Carbsteady SHAKE Vanilla 8oz PO SCH ×4 (07:30→16:23)
[2022-08-27] MEDS: Pro-Stat SF 30ml Vanilla PO SCH ×2 (07:31→16:23)
[2022-08-27] MEDS: ENOXAPARIN SOD 80 MG/0.8ML SYRINGE SC SCH ×2 (09:24→22:06)
[2022-08-27] MEDS: DexAMETHasone SOD PHOS 10MG/1ML VIAL INJ IV SCH (09:25)
[2022-08-27] MEDS: FUROSEMIDE 20 MG/2 ML VIAL IV SCH (09:25)
[2022-08-27] MEDS ORDERED: TPN PER PHARMACY IV NR ×18 (10:15→20:00)
[2022-08-27] MEDS: SODIUM CHLOR 0.9% PF (SALINE LOCK) 10ML VIAL/SYR IV SCH ×2 (10:26→22:00)
[2022-08-27] MEDS ORDERED: LACTULOSE 20Gm/30ML SOLN PO ONE (13:45)
[2022-08-27] MEDS: SENNA 8.6 MG TAB PO SCH (22:00)
[2022-08-27] MEDS: PRAVASTATIN SODIUM 20 MG TAB PO SCH (22:00)
[2022-08-27] MEDS: MELATONIN 5 MG TAB PO SCH (22:00)
[2022-08-28] VITALS (91 sets, daily range): BP systolic 92–119; BP diastolic 52–77
[2022-08-28] MEDS: ACCU-CHEK COMFORT CURVE STRIP VI SCH ×5 (00:04→23:42)
[2022-08-28] MEDS: ALBUTEROL SULF 2.5 MG/0.5ML(0.5%) NEB SOLN NEB SCH ×4 (00:05→18:36)
[2022-08-28] MEDS: InsuLIN REG 1unit/0.01ml Soln (100units/ml) SC SCH ×5 (00:05→23:44)
[2022-08-28] MEDS: IPRATROPIUM BROM 0.5 MG/2.5ML INH SOL NEB SCH ×4 (00:14→18:36)
[2022-08-28] MEDS: MORPHINE SULFATE INJ 2 MG/ml SYRG IV PRN (02:26)
[2022-08-28 04:14] LABS: Basophils # (auto) 0 10 ^3/uL (0-0.2); Basophils % (auto) 0.1 % (0.0-2.0); Eosinophils # (auto) 0 10 ^3/uL (0-0.8); Eosinophils % (auto) 0.3 % (0.0-7.0); Hematocrit 39.8 % (41.0-53.0); Hemoglobin 12.7 g/dL (13.5-17.5); Lymphocytes # (auto) 0.5 10 ^3/uL (0.4-5.4); Lymphocytes % (auto) 3.9 % (10.0-50.0); Mean Corpuscular Hemoglobin 31.8 pg (28.0-32.0); Mean Corpuscular Hgb Conc. 31.9 g/dL (32.0-36.0); Mean Corpuscular Volume 99.7 fL (80.0-100.0); Monocytes # (auto) 0.3 10 ^3/uL (0-1.3); Monocytes % (auto) 2.6 % (0.0-12.0); Neutrophils # (auto) 10.8 10 ^3/uL (1.6-8.6); Neutrophils % (auto) 93.1 % (37.0-80.0); Nucleated Red Blood Cells % 0.1 %; Red Blood Cells 3.99 10^6/uL (4.5-5.90); Red Cell Distribution Width 14.3 % (11.8-14.3); White Blood Cell 11.6 10^3/uL (4.4-10.8)
[2022-08-28] MEDS: PIPERACILLIN-TAZOB 3.375GM 100 ML IV SCH ×3 (04:25→19:56)
[2022-08-28] MEDS: SALINE 0.65 % NASAL SPRAY 45ML BOTTLE EACHNOSTRI SCH ×4 (06:06→21:16)
[2022-08-28 07:05] LABS: Albumin 2.2 g/dL (3.4-5.0); Magnesium 2.6 mg/dL (1.6-2.6); Potassium 4.1 mmol/L (3.5-5.1)
[2022-08-28] MEDS: INSULIN LANTUS (GLARGINE) 1 /0.01ml (100units/ml) SC SCH (07:08)
[2022-08-28 07:09] LABS: BUN/Creatinine Ratio 78.2 (10.0-20.0); Bilirubin, Total 0.4 mg/dL (0.2-1.0); Phosphorus 1.6 mg/dL (2.5-4.90); Total Protein 6.4 g/dL (6.4-8.2)
[2022-08-28] MEDS: Glucerna Carbsteady SHAKE Vanilla 8oz PO SCH ×4 (08:00→15:33)
[2022-08-28] MEDS: Pro-Stat SF 30ml Vanilla PO SCH ×2 (08:00→15:33)
[2022-08-28] MEDS: DexAMETHasone SOD PHOS 10MG/1ML VIAL INJ IV SCH (09:30)
[2022-08-28] MEDS: FUROSEMIDE 20 MG/2 ML VIAL IV SCH (09:30)
[2022-08-28] MEDS: ENOXAPARIN SOD 80 MG/0.8ML SYRINGE SC SCH (09:31)
[2022-08-28] MEDS ORDERED: SODIUM PHOSPHATES 20 MEQ in SODIUM CHL 0.9% 100 ML IV ONE (10:00)
[2022-08-28] MEDS: SODIUM CHLOR 0.9% PF (SALINE LOCK) 10ML VIAL/SYR IV SCH ×2 (10:28→21:16)
[2022-08-28] MEDS ORDERED: TPN PER PHARMACY IV NR ×9 (20:00)
[2022-08-28] MEDS: MELATONIN 5 MG TAB PO SCH (21:06)
[2022-08-28] MEDS: PRAVASTATIN SODIUM 20 MG TAB PO SCH (21:06)
[2022-08-28] MEDS: SENNA 8.6 MG TAB PO SCH (21:07)
[2022-08-28] MEDS: ENOXAPARIN SOD 60 MG/0.6 ML SYRINGE SC SCH (21:16)
[2022-08-29] VITALS (45 sets, daily range): BP systolic 76–120; BP diastolic 48–80
[2022-08-29] MEDS: IPRATROPIUM BROM 0.5 MG/2.5ML INH SOL NEB SCH ×4 (00:07→19:06)
[2022-08-29] MEDS: ALBUTEROL SULF 2.5 MG/0.5ML(0.5%) NEB SOLN NEB SCH ×4 (00:08→19:06)
[2022-08-29] MEDS: PIPERACILLIN-TAZOB 3.375GM 100 ML IV SCH ×3 (03:13→20:51)
[2022-08-29 04:23] LABS: Basophils # (auto) 0 10 ^3/uL (0-0.2); Eosinophils # (auto) 0.1 10 ^3/uL (0-0.8); Eosinophils % (auto) 0.5 % (0.0-7.0); Hematocrit 38.5 % (41.0-53.0); Hemoglobin 12.6 g/dL (13.5-17.5); Lymphocytes # (auto) 0.5 10 ^3/uL (0.4-5.4); Lymphocytes % (auto) 4.5 % (10.0-50.0); Mean Corpuscular Hemoglobin 30.3 pg (28.0-32.0); Mean Corpuscular Hgb Conc. 32.8 g/dL (32.0-36.0); Mean Corpuscular Volume 92.4 fL (80.0-100.0); Monocytes # (auto) 0.4 10 ^3/uL (0-1.3); Monocytes % (auto) 3.3 % (0.0-12.0); Neutrophils # (auto) 10.1 10 ^3/uL (1.6-8.6); Neutrophils % (auto) 91.7 % (37.0-80.0); Nucleated Red Blood Cells % 0.2 %; Red Blood Cells 4.17 10^6/uL (4.5-5.90); Red Cell Distribution Width 13.7 % (11.8-14.3); White Blood Cell 11.1 10^3/uL (4.4-10.8)
[2022-08-29 04:42] LABS: Albumin 2.1 g/dL (3.4-5.0); Calcium 8.7 mg/dL (8.5-10.1); Magnesium 2.9 mg/dL (1.6-2.6)
[2022-08-29 04:47] LABS: BUN/Creatinine Ratio 74.3 (10.0-20.0); Bilirubin, Total 0.5 mg/dL (0.2-1.0); Phosphorus 2.7 mg/dL (2.5-4.90); Total Protein 6.3 g/dL (6.4-8.2)
[2022-08-29] MEDS: ACCU-CHEK COMFORT CURVE STRIP VI SCH ×4 (05:48→23:56)
[2022-08-29 05:51] LABS: Potassium 2.8 mmol/L (3.5-5.1)
[2022-08-29] MEDS: InsuLIN REG 1unit/0.01ml Soln (100units/ml) SC SCH ×3 (05:51→17:07)
[2022-08-29] MEDS: SALINE 0.65 % NASAL SPRAY 45ML BOTTLE EACHNOSTRI SCH ×4 (05:52→21:13)
[2022-08-29] MEDS ORDERED: POTASSIUM CHL 20MEQ/100ML 100 ML IV ONE (06:45)
[2022-08-29] MEDS: Glucerna Carbsteady SHAKE Vanilla 8oz PO SCH ×4 (08:00→18:00)
[2022-08-29] MEDS: Pro-Stat SF 30ml Vanilla PO SCH ×2 (08:00→18:00)
[2022-08-29] MEDS: DexAMETHasone SOD PHOS 10MG/1ML VIAL INJ IV SCH (09:15)
[2022-08-29] MEDS: ENOXAPARIN SOD 60 MG/0.6 ML SYRINGE SC SCH ×2 (09:16→21:12)
[2022-08-29] MEDS: FUROSEMIDE 20 MG/2 ML VIAL IV SCH (09:27)
[2022-08-29] MEDS: SODIUM CHLOR 0.9% PF (SALINE LOCK) 10ML VIAL/SYR IV SCH ×2 (09:28→21:13)
[2022-08-29] MEDS ORDERED: POTASSIUM PHOSPHATE 26.4 MEQ in SODIUM CHL 0.9% 100 ML IV ONE (10:15)
[2022-08-29] MEDS: MORPHINE SULFATE INJ 2 MG/ml SYRG IV PRN ×3 (10:32→20:54)
[2022-08-29] MEDS ORDERED: TPN PER PHARMACY IV NR ×9 (20:00)
[2022-08-29] MEDS: MELATONIN 5 MG TAB PO SCH (21:13)
[2022-08-29] MEDS: PRAVASTATIN SODIUM 20 MG TAB PO SCH (21:13)
[2022-08-29] MEDS: SENNA 8.6 MG TAB PO SCH (21:14)
[2022-08-30] VITALS (31 sets, daily range): BP systolic 80–122; BP diastolic 40–85
[2022-08-30] MEDS: ALBUTEROL SULF 2.5 MG/0.5ML(0.5%) NEB SOLN NEB SCH ×4 (00:39→20:57)
[2022-08-30] MEDS: IPRATROPIUM BROM 0.5 MG/2.5ML INH SOL NEB SCH ×4 (00:40→20:57)
[2022-08-30] MEDS: MORPHINE SULFATE INJ 2 MG/ml SYRG IV PRN ×4 (00:58→18:26)
[2022-08-30 04:31] LABS: Hemoglobin 12.8 g/dL (13.5-17.5); Mean Corpuscular Hemoglobin 30.5 pg (28.0-32.0); Mean Corpuscular Hgb Conc. 32.8 g/dL (32.0-36.0); Mean Corpuscular Volume 92.8 fL (80.0-100.0); Red Cell Distribution Width 14.2 % (11.8-14.3); White Blood Cell 11.4 10^3/uL (4.4-10.8)
[2022-08-30 04:49] LABS: Albumin 2.2 g/dL (3.4-5.0); Calcium 8.4 mg/dL (8.5-10.1)
[2022-08-30 04:51] LABS: Basophils % (manual) 0 (0.0-2.0); Blast Cells 0; Metamyelocytes % 0; Promyelocytes % 0; Reactive Lymphocytes 0
[2022-08-30 04:52] LABS: BUN/Creatinine Ratio 83.9 (10.0-20.0); Bilirubin, Total 0.5 mg/dL (0.2-1.0); Phosphorus 3.4 mg/dL (2.5-4.90); Total Protein 6.5 g/dL (6.4-8.2)
[2022-08-30] MEDS: PIPERACILLIN-TAZOB 3.375GM 100 ML IV SCH ×3 (06:02→20:10)
[2022-08-30] MEDS: SALINE 0.65 % NASAL SPRAY 45ML BOTTLE EACHNOSTRI SCH ×4 (06:02→22:52)
[2022-08-30] MEDS: ACCU-CHEK COMFORT CURVE STRIP VI SCH ×3 (06:04→18:19)
[2022-08-30] MEDS: InsuLIN REG 1unit/0.01ml Soln (100units/ml) SC SCH ×4 (06:15→18:23)
[2022-08-30 06:34] LABS: Band Neutrophils % (manual) 9; Eosinophils % (manual) 1 (0-7); Lymphocytes % (manual) 5 (10.0-50.0); Monocytes % (manual) 6 (0-12); Myelocytes % 2
[2022-08-30] MEDS: Glucerna Carbsteady SHAKE Vanilla 8oz PO SCH ×4 (07:49→18:00)
[2022-08-30] MEDS: Pro-Stat SF 30ml Vanilla PO SCH ×2 (07:49→18:00)
[2022-08-30] MEDS: DexAMETHasone SOD PHOS 10MG/1ML VIAL INJ IV SCH (09:47)
[2022-08-30] MEDS: ENOXAPARIN SOD 60 MG/0.6 ML SYRINGE SC SCH ×2 (09:48→22:54)
[2022-08-30] MEDS: FUROSEMIDE 20 MG/2 ML VIAL IV SCH (09:48)
[2022-08-30] MEDS: SODIUM CHLOR 0.9% PF (SALINE LOCK) 10ML VIAL/SYR IV SCH ×2 (09:48→22:56)
[2022-08-30] MEDS: POTASSIUM CHL 20MEQ/100ML 100 ML IV SCH ×3 (09:48→14:01)
[2022-08-30] MEDS ORDERED: MAALOX PLUS or MAALOX 30 ML GT PRN (12:00)
[2022-08-30] MEDS ORDERED: TPN PER PHARMACY IV NR ×9 (20:00)
[2022-08-30] MEDS: SENNA 8.6 MG TAB PO SCH (22:54)
[2022-08-30] MEDS: MELATONIN 5 MG TAB PO SCH (22:54)
[2022-08-30] MEDS: PRAVASTATIN SODIUM 20 MG TAB PO SCH (22:54)
[2022-08-31] VITALS (79 sets, daily range): BP systolic 52–126; BP diastolic 21–87
[2022-08-31] MEDS: ALBUTEROL SULF 2.5 MG/0.5ML(0.5%) NEB SOLN NEB SCH ×4 (00:05→18:18)
[2022-08-31] MEDS: IPRATROPIUM BROM 0.5 MG/2.5ML INH SOL NEB SCH ×4 (00:06→18:18)
[2022-08-31] MEDS: ACCU-CHEK COMFORT CURVE STRIP VI SCH ×4 (01:27→18:13)
[2022-08-31] MEDS: InsuLIN REG 1unit/0.01ml Soln (100units/ml) SC SCH ×4 (01:29→18:20)
[2022-08-31] MEDS: PIPERACILLIN-TAZOB 3.375GM 100 ML IV SCH ×3 (03:31→19:24)
[2022-08-31] MEDS: MORPHINE SULFATE INJ 2 MG/ml SYRG IV PRN ×3 (03:31→19:29)
[2022-08-31 04:28] LABS: Albumin 2.1 g/dL (3.4-5.0); Calcium 8.5 mg/dL (8.5-10.1); Potassium 3.2 mmol/L (3.5-5.1)
[2022-08-31 04:33] LABS: BUN/Creatinine Ratio 76.9 (10.0-20.0); Bilirubin, Total 0.5 mg/dL (0.2-1.0); Phosphorus 4.4 mg/dL (2.5-4.90); Total Protein 6.9 g/dL (6.4-8.2)
[2022-08-31] MEDS ORDERED: AMIODARONE 450mg/250ml AE 250 ML IV ONE (05:12)
[2022-08-31] MEDS ORDERED: AMIODARONE HCL (50 MG/ ML) 3 ML VIAL IV ONE (05:12)
[2022-08-31] MEDS ORDERED: POTASSIUM CHL 20MEQ/100ML 100 ML IV ONE ×2 (05:15→10:15)
[2022-08-31] MEDS ORDERED: AMIODARONE HCL 150 MG in D5W 5% 100 ML IV ONE (05:15)
[2022-08-31] MEDS ORDERED: AMIODARONE 450mg/250ml AE 250 ML IV SCH (05:30)
[2022-08-31] MEDS: NOREPINEPHRINE 8 MG/250ML KIT 250 ML IV SCH (05:32)
[2022-08-31] MEDS: SALINE 0.65 % NASAL SPRAY 45ML BOTTLE EACHNOSTRI SCH ×4 (05:49→22:44)
[2022-08-31 06:12] LABS: Basophils # (auto) 0 10 ^3/uL (0-0.2); Basophils % (auto) 0.1 % (0.0-2.0); Eosinophils # (auto) 0.1 10 ^3/uL (0-0.8); Eosinophils % (auto) 0.5 % (0.0-7.0); Hematocrit 39.9 % (41.0-53.0); Hemoglobin 13.2 g/dL (13.5-17.5); Lymphocytes # (auto) 0.6 10 ^3/uL (0.4-5.4); Lymphocytes % (auto) 4.2 % (10.0-50.0); Mean Corpuscular Hemoglobin 30.6 pg (28.0-32.0); Mean Corpuscular Volume 92.9 fL (80.0-100.0); Monocytes # (auto) 0.4 10 ^3/uL (0-1.3); Monocytes % (auto) 2.9 % (0.0-12.0); Neutrophils # (auto) 12.3 10 ^3/uL (1.6-8.6); Neutrophils % (auto) 92.3 % (37.0-80.0); Nucleated Red Blood Cells % 0.2 %; Red Blood Cells 4.29 10^6/uL (4.5-5.90); Red Cell Distribution Width 14.2 % (11.8-14.3); White Blood Cell 13.4 10^3/uL (4.4-10.8)
[2022-08-31] MEDS: Pro-Stat SF 30ml Vanilla PO SCH ×2 (07:55→18:00)
[2022-08-31] MEDS: Glucerna Carbsteady SHAKE Vanilla 8oz PO SCH ×4 (07:55→18:00)
[2022-08-31] MEDS: ENOXAPARIN SOD 60 MG/0.6 ML SYRINGE SC SCH ×2 (10:00→20:56)
[2022-08-31] MEDS: DexAMETHasone SOD PHOS 10MG/1ML VIAL INJ IV SCH (10:23)
[2022-08-31] MEDS: PHENYLEPHRINE IV 250 ML IV SCH ×2 (10:23→18:05)
[2022-08-31] MEDS: FUROSEMIDE 20 MG/2 ML VIAL IV SCH (10:24)
[2022-08-31] MEDS: SODIUM CHLOR 0.9% PF (SALINE LOCK) 10ML VIAL/SYR IV SCH ×2 (10:24→22:45)
[2022-08-31] MEDS: AMIODARONE 450mg/250ml AE 250 ML IV SCH ×2 (11:30→14:49)
[2022-08-31] MEDS ORDERED: LACTULOSE 20Gm/30ML SOLN PO ONE (14:15)
[2022-08-31] MEDS ORDERED: FLEET MINERAL OIL ENEMA 133 ML PR ONE (14:15)
[2022-08-31] MEDS ORDERED: FLEET ENEMA(ADULT) 135 ML PR ONE (15:15)
[2022-08-31] MEDS: LACTULOSE 20Gm/30ML SOLN PO SCH (18:13)
[2022-08-31] MEDS ORDERED: TPN PER PHARMACY IV NR ×8 (20:00)
[2022-08-31] MEDS: MELATONIN 5 MG TAB PO SCH (21:28)
[2022-08-31] MEDS: PRAVASTATIN SODIUM 20 MG TAB PO SCH (21:28)
[2022-08-31] MEDS: SENNA 8.6 MG TAB PO SCH (21:28)
[2022-09-01] VITALS (51 sets, daily range): BP systolic 10–126; BP diastolic 34–75
[2022-09-01] MEDS: ALBUTEROL SULF 2.5 MG/0.5ML(0.5%) NEB SOLN NEB SCH ×4 (00:06→18:56)
[2022-09-01] MEDS: IPRATROPIUM BROM 0.5 MG/2.5ML INH SOL NEB SCH ×4 (00:07→18:56)
[2022-09-01] MEDS: ACCU-CHEK COMFORT CURVE STRIP VI SCH ×4 (00:26→18:24)
[2022-09-01] MEDS: LACTULOSE 20Gm/30ML SOLN PO SCH ×4 (00:33→18:00)
[2022-09-01] MEDS: InsuLIN REG 1unit/0.01ml Soln (100units/ml) SC SCH ×4 (00:42→18:28)
[2022-09-01] MEDS: PHENYLEPHRINE IV 250 ML IV SCH ×3 (02:25→19:05)
[2022-09-01] MEDS: PIPERACILLIN-TAZOB 3.375GM 100 ML IV SCH ×3 (04:18→19:58)
[2022-09-01 04:49] LABS: BUN/Creatinine Ratio 76.8 (10.0-20.0); Calcium 8.4 mg/dL (8.5-10.1)
[2022-09-01 04:52] LABS: Bilirubin, Total 0.5 mg/dL (0.2-1.0); Phosphorus 3.5 mg/dL (2.5-4.90); Total Protein 6.5 g/dL (6.4-8.2)
[2022-09-01 05:03] LABS: Basophils # (auto) 0 10 ^3/uL (0-0.2); Eosinophils # (auto) 0 10 ^3/uL (0-0.8); Hematocrit 37.3 % (41.0-53.0); Hemoglobin 12.4 g/dL (13.5-17.5); Lymphocytes # (auto) 0.5 10 ^3/uL (0.4-5.4); Mean Corpuscular Hemoglobin 30.8 pg (28.0-32.0); Mean Corpuscular Hgb Conc. 33.2 g/dL (32.0-36.0); Mean Corpuscular Volume 92.7 fL (80.0-100.0); Monocytes # (auto) 0.6 10 ^3/uL (0-1.3); Monocytes % (auto) 4.3 % (0.0-12.0); Neutrophils % (auto) 91.7 % (37.0-80.0); Nucleated Red Blood Cells % 0.1 %; Red Blood Cells 4.02 10^6/uL (4.5-5.90); Red Cell Distribution Width 14.2 % (11.8-14.3)
[2022-09-01] MEDS: NOREPINEPHRINE 8 MG/250ML KIT 250 ML IV SCH (05:15)
[2022-09-01] MEDS: AMIODARONE 450mg/250ml AE 250 ML IV SCH ×2 (05:25→20:03)
[2022-09-01] MEDS: SALINE 0.65 % NASAL SPRAY 45ML BOTTLE EACHNOSTRI SCH ×4 (05:32→20:03)
[2022-09-01] MEDS: MORPHINE SULFATE INJ 2 MG/ml SYRG IV PRN (07:49)
[2022-09-01] MEDS: FUROSEMIDE 20 MG/2 ML VIAL IV SCH (10:48)
[2022-09-01] MEDS: DexAMETHasone SOD PHOS 10MG/1ML VIAL INJ IV SCH (10:48)
[2022-09-01] MEDS: Glucerna Carbsteady SHAKE Vanilla 8oz PO SCH ×3 (10:48→17:25)
[2022-09-01] MEDS: Pro-Stat SF 30ml Vanilla PO SCH (10:49)
[2022-09-01] MEDS: ENOXAPARIN SOD 60 MG/0.6 ML SYRINGE SC SCH ×2 (10:49→21:52)
[2022-09-01] MEDS: SODIUM CHLOR 0.9% PF (SALINE LOCK) 10ML VIAL/SYR IV SCH ×2 (10:56→21:52)
[2022-09-01] MEDS: POTASSIUM CHL 20MEQ/100ML 100 ML IV SCH ×3 (11:18→15:14)
[2022-09-01] MEDS ORDERED: HYDROCORTISONE ACET 25 MG RECTAL SUPP PR ONE (14:30)
[2022-09-01] MEDS: HYDROCORTISONE ACET 25 MG RECTAL SUPP PR SCH (15:50)
[2022-09-01] MEDS ORDERED: FLEET MINERAL OIL ENEMA 133 ML PR ONE (20:00)
[2022-09-01] MEDS ORDERED: TPN PER PHARMACY IV NR ×8 (20:00)
[2022-09-01] MEDS: MELATONIN 5 MG TAB PO SCH (21:52)
[2022-09-01] MEDS: SENNA 8.6 MG TAB PO SCH (21:52)
[2022-09-02] VITALS (48 sets, daily range): BP systolic 68–127; BP diastolic 38–94
[2022-09-02] MEDS: LACTULOSE 20Gm/30ML SOLN PO SCH ×4 (00:15→18:12)
[2022-09-02] MEDS: ACCU-CHEK COMFORT CURVE STRIP VI SCH ×4 (00:16→18:12)
[2022-09-02] MEDS: InsuLIN REG 1unit/0.01ml Soln (100units/ml) SC SCH ×4 (00:22→18:16)
[2022-09-02] MEDS: IPRATROPIUM BROM 0.5 MG/2.5ML INH SOL NEB SCH ×4 (00:23→18:23)
[2022-09-02] MEDS: ALBUTEROL SULF 2.5 MG/0.5ML(0.5%) NEB SOLN NEB SCH ×4 (00:23→18:23)
[2022-09-02] MEDS: PHENYLEPHRINE IV 250 ML IV SCH ×2 (03:25→11:45)
[2022-09-02] MEDS: PIPERACILLIN-TAZOB 3.375GM 100 ML IV SCH ×3 (03:45→20:00)
[2022-09-02 04:56] LABS: Albumin 2.1 g/dL (3.4-5.0); BUN/Creatinine Ratio 73.6 (10.0-20.0); Calcium 8.8 mg/dL (8.5-10.1); Magnesium 3.3 mg/dL (1.6-2.6); Potassium 3.7 mmol/L (3.5-5.1)
[2022-09-02 05:00] LABS: Bilirubin, Total 0.4 mg/dL (0.2-1.0); Total Protein 6.6 g/dL (6.4-8.2)
[2022-09-02] MEDS: NOREPINEPHRINE 8 MG/250ML KIT 250 ML IV SCH (05:15)
[2022-09-02] MEDS: SALINE 0.65 % NASAL SPRAY 45ML BOTTLE EACHNOSTRI SCH ×2 (05:33→12:22)
[2022-09-02] MEDS: MORPHINE SULFATE INJ 2 MG/ml SYRG IV PRN ×3 (06:53→17:42)
[2022-09-02 07:31] LABS: Hematocrit 38.3 % (41.0-53.0); Hemoglobin 12.4 g/dL (13.5-17.5); Mean Corpuscular Hemoglobin 30.5 pg (28.0-32.0); Mean Corpuscular Hgb Conc. 32.3 g/dL (32.0-36.0); Mean Corpuscular Volume 94.6 fL (80.0-100.0); Red Blood Cells 4.05 10^6/uL (4.5-5.90); Red Cell Distribution Width 13.9 % (11.8-14.3); White Blood Cell 14.2 10^3/uL (4.4-10.8)
[2022-09-02 07:34] LABS: Basophils % (manual) 0 (0.0-2.0); Blast Cells 0; Eosinophils % (manual) 0 (0-7); Metamyelocytes % 0; Myelocytes % 0; Promyelocytes % 0; Reactive Lymphocytes 0
[2022-09-02 08:23] LABS: Band Neutrophils % (manual) 4; Lymphocytes % (manual) 6 (10.0-50.0); Monocytes % (manual) 3 (0-12)
[2022-09-02] MEDS: ENOXAPARIN SOD 60 MG/0.6 ML SYRINGE SC SCH ×2 (09:50→22:00)
[2022-09-02] MEDS: DexAMETHasone SOD PHOS 10MG/1ML VIAL INJ IV SCH (10:09)
[2022-09-02] MEDS: SODIUM CHLOR 0.9% PF (SALINE LOCK) 10ML VIAL/SYR IV SCH ×2 (10:10→22:00)
[2022-09-02] MEDS: AMIODARONE 450mg/250ml AE 250 ML IV SCH (10:13)
[2022-09-02] MEDS: HYDROCORTISONE ACET 25 MG RECTAL SUPP PR SCH ×2 (10:34→22:00)
[2022-09-02] MEDS: METOCLOPRAMIDE HCL 5MG/ml INJ 2ml VIAL IV SCH ×2 (14:06→22:39)
[2022-09-02] MEDS ORDERED: PHENYLEPHRINE HCL 10 MG/ML VL ONE (14:36)
[2022-09-02] MEDS ORDERED: GASTROGRAFIN 120 ML SOL ONE (15:10)
[2022-09-02] MEDS: Glucerna Carbsteady SHAKE Vanilla 8oz PO SCH (17:30)
[2022-09-02] MEDS ORDERED: TPN PER PHARMACY IV NR ×10 (20:00)
[2022-09-02] MEDS: MELATONIN 5 MG TAB PO SCH (22:00)
[2022-09-02] MEDS: SENNA 8.6 MG TAB PO SCH (22:00)
[2022-09-03] VITALS (53 sets, daily range): BP systolic 86–131; BP diastolic 39–80
[2022-09-03] MEDS: AMIODARONE 450mg/250ml AE 250 ML IV SCH ×2 (02:00→15:53)
[2022-09-03] MEDS: PIPERACILLIN-TAZOB 3.375GM 100 ML IV SCH ×3 (04:00→20:13)
[2022-09-03] MEDS: NOREPINEPHRINE 8 MG/250ML KIT 250 ML IV SCH (05:15)
[2022-09-03] MEDS: ACCU-CHEK COMFORT CURVE STRIP VI SCH ×5 (06:00→23:52)
[2022-09-03] MEDS: LACTULOSE 20Gm/30ML SOLN PO SCH ×5 (06:00→23:47)
[2022-09-03] MEDS: InsuLIN REG 1unit/0.01ml Soln (100units/ml) SC SCH ×5 (06:00→23:53)
[2022-09-03] MEDS: METOCLOPRAMIDE HCL 5MG/ml INJ 2ml VIAL IV SCH ×3 (06:00→22:12)
[2022-09-03] MEDS: ALBUTEROL SULF 2.5 MG/0.5ML(0.5%) NEB SOLN NEB SCH ×5 (06:02→23:38)
[2022-09-03] MEDS: IPRATROPIUM BROM 0.5 MG/2.5ML INH SOL NEB SCH ×5 (06:02→23:38)
[2022-09-03 07:20] LABS: Hematocrit 30.6 % (41.0-53.0); Hemoglobin 9.9 g/dL (13.5-17.5); Mean Corpuscular Hemoglobin 30.5 pg (28.0-32.0); Mean Corpuscular Hgb Conc. 32.3 g/dL (32.0-36.0); Mean Corpuscular Volume 94.4 fL (80.0-100.0); Red Blood Cells 3.24 10^6/uL (4.5-5.90); Red Cell Distribution Width 13.9 % (11.8-14.3); White Blood Cell 10.2 10^3/uL (4.4-10.8)
[2022-09-03 07:26] LABS: Basophils % (manual) 0 (0.0-2.0); Blast Cells 0; Metamyelocytes % 0; Myelocytes % 0; Promyelocytes % 0; Reactive Lymphocytes 0
[2022-09-03 07:27] LABS: Calcium 6.1 mg/dL (8.5-10.1)
[2022-09-03 07:50] LABS: Albumin 1.4 g/dL (3.4-5.0); BUN/Creatinine Ratio 96.5 (10.0-20.0); Bilirubin, Total 0.3 mg/dL (0.2-1.0); Magnesium 2.7 mg/dL (1.6-2.6); Phosphorus 1.4 mg/dL (2.5-4.90); Total Protein 4.3 g/dL (6.4-8.2)
[2022-09-03 07:55] LABS: Potassium 2.7 mmol/L (3.5-5.1)
[2022-09-03 07:58] LABS: Band Neutrophils % (manual) 5; Eosinophils % (manual) 1 (0-7); Lymphocytes % (manual) 7 (10.0-50.0); Monocytes % (manual) 8 (0-12)
[2022-09-03] MEDS: MORPHINE SULFATE INJ 2 MG/ml SYRG IV PRN ×3 (07:58→22:06)
[2022-09-03] MEDS ORDERED: POTASSIUM PHOSPHATE 44 MEQ in D5W 5% 250 ML IV ONE (10:00)
[2022-09-03] MEDS: HYDROCORTISONE ACET 25 MG RECTAL SUPP PR SCH ×2 (10:00→22:00)
[2022-09-03] MEDS: ENOXAPARIN SOD 60 MG/0.6 ML SYRINGE SC SCH (10:00)
[2022-09-03] MEDS ORDERED: CALCIUM GLUC 1,000mg/50ml-NS 50 ML IV ONE (10:00)
[2022-09-03] MEDS: PHENYLEPHRINE IV 250 ML IV SCH ×3 (10:05→16:54)
[2022-09-03] MEDS: DexAMETHasone SOD PHOS 10MG/1ML VIAL INJ IV SCH (10:05)
[2022-09-03] MEDS: SODIUM CHLOR 0.9% PF (SALINE LOCK) 10ML VIAL/SYR IV SCH ×2 (10:14→22:12)
[2022-09-03] MEDS: Glucerna Carbsteady SHAKE Vanilla 8oz PO SCH (17:30)
[2022-09-03] MEDS ORDERED: TPN PER PHARMACY IV NR ×10 (20:00)
[2022-09-03] MEDS: MELATONIN 5 MG TAB PO SCH (22:00)
[2022-09-03] MEDS: SENNA 8.6 MG TAB PO SCH (22:00)
[2022-09-04] VITALS (102 sets, daily range): BP systolic 79–132; BP diastolic 39–76
[2022-09-04] MEDS: PHENYLEPHRINE IV 250 ML IV SCH ×5 (01:48→22:53)
[2022-09-04] MEDS: MORPHINE SULFATE INJ 2 MG/ml SYRG IV PRN ×4 (01:58→19:53)
[2022-09-04 04:17] LABS: Basophils # (auto) 0 10 ^3/uL (0-0.2); Basophils % (auto) 0.4 % (0.0-2.0); Eosinophils # (auto) 0 10 ^3/uL (0-0.8); Eosinophils % (auto) 0.1 % (0.0-7.0); Hematocrit 30.1 % (41.0-53.0); Hemoglobin 9.9 g/dL (13.5-17.5); Lymphocytes # (auto) 0.6 10 ^3/uL (0.4-5.4); Lymphocytes % (auto) 5.9 % (10.0-50.0); Mean Corpuscular Hemoglobin 31.6 pg (28.0-32.0); Mean Corpuscular Volume 95.7 fL (80.0-100.0); Monocytes # (auto) 0.4 10 ^3/uL (0-1.3); Monocytes % (auto) 4.3 % (0.0-12.0); Neutrophils # (auto) 9.2 10 ^3/uL (1.6-8.6); Neutrophils % (auto) 89.3 % (37.0-80.0); Nucleated Red Blood Cells % 0.2 %; Red Blood Cells 3.14 10^6/uL (4.5-5.90); Red Cell Distribution Width 14.5 % (11.8-14.3); White Blood Cell 10.3 10^3/uL (4.4-10.8)
[2022-09-04] MEDS: PIPERACILLIN-TAZOB 3.375GM 100 ML IV SCH ×2 (04:39→12:05)
[2022-09-04] MEDS: NOREPINEPHRINE 8 MG/250ML KIT 250 ML IV SCH (05:15)
[2022-09-04] MEDS: IPRATROPIUM BROM 0.5 MG/2.5ML INH SOL NEB SCH ×3 (05:20→18:10)
[2022-09-04] MEDS: ALBUTEROL SULF 2.5 MG/0.5ML(0.5%) NEB SOLN NEB SCH ×3 (05:20→18:10)
[2022-09-04 05:50] LABS: Alanine Aminotransferase 33 U/L (16-61); Albumin 1.9 g/dL (3.4-5.0); Aspartate Aminotransferase 24 U/L (15-37); Blood Urea Nitrogen 73 mg/dL (7-18); Calcium 8.1 mg/dL (8.5-10.1); Chloride 94 mmol/L (98-107); Glucose 147 mg/dL (74-106); Magnesium 3.3 mg/dL (1.6-2.6); Potassium 3.6 mmol/L (3.5-5.1); Sodium 145 mmol/L (136-145)
[2022-09-04 05:53] LABS: Alkaline Phosphatase 79 U/L (45-117); BUN/Creatinine Ratio 77.7 (10.0-20.0); Bilirubin, Total 0.5 mg/dL (0.2-1.0); GFR African American 102 mL/min; GFR Non-African American 84 mL/min; Phosphorus 2.6 mg/dL (2.5-4.90); Total Protein 5.8 g/dL (6.4-8.2); Triglycerides 156 mg/dL (< 150)
[2022-09-04] MEDS: LACTULOSE 20Gm/30ML SOLN PO SCH ×4 (06:00→23:32)
[2022-09-04 06:08] LABS: Carbon Dioxide 56 mmol/L (21-32)
[2022-09-04] MEDS: ACCU-CHEK COMFORT CURVE STRIP VI SCH ×4 (06:13→23:30)
[2022-09-04] MEDS: InsuLIN REG 1unit/0.01ml Soln (100units/ml) SC SCH ×4 (06:14→23:31)
[2022-09-04] MEDS: AMIODARONE 450mg/250ml AE 250 ML IV SCH ×2 (06:28→22:52)
[2022-09-04] MEDS: METOCLOPRAMIDE HCL 5MG/ml INJ 2ml VIAL IV SCH ×3 (06:30→23:04)
[2022-09-04] MEDS: HYDROCORTISONE ACET 25 MG RECTAL SUPP PR SCH ×3 (09:09→22:00)
[2022-09-04] MEDS: DexAMETHasone SOD PHOS 10MG/1ML VIAL INJ IV SCH (09:09)
[2022-09-04] MEDS: SODIUM CHLOR 0.9% PF (SALINE LOCK) 10ML VIAL/SYR IV SCH ×2 (09:09→23:04)
[2022-09-04] MEDS ORDERED: ONDANSETRON HCL 4 MG/2 ML VIAL IV PRN (13:00)
[2022-09-04] MEDS: Glucerna Carbsteady SHAKE Vanilla 8oz PO SCH (17:30)
[2022-09-04] MEDS ORDERED: TPN PER PHARMACY IV NR ×9 (20:00)
[2022-09-04] MEDS: MELATONIN 5 MG TAB PO SCH (22:00)
[2022-09-04] MEDS: SENNA 8.6 MG TAB PO SCH (22:00)
[2022-09-05] VITALS (90 sets, daily range): BP systolic 76–133; BP diastolic 28–94
[2022-09-05] MEDS: IPRATROPIUM BROM 0.5 MG/2.5ML INH SOL NEB SCH ×4 (00:01→18:03)
[2022-09-05] MEDS: ALBUTEROL SULF 2.5 MG/0.5ML(0.5%) NEB SOLN NEB SCH ×4 (00:02→18:03)
[2022-09-05] MEDS: MORPHINE SULFATE INJ 2 MG/ml SYRG IV PRN ×2 (02:02→08:56)
[2022-09-05] MEDS: PHENYLEPHRINE IV 250 ML IV SCH ×5 (03:16→19:54)
[2022-09-05 04:52] LABS: Albumin 1.8 g/dL (3.4-5.0); Calcium 7.8 mg/dL (8.5-10.1); Magnesium 2.9 mg/dL (1.6-2.6); Potassium 3.9 mmol/L (3.5-5.1)
[2022-09-05 04:56] LABS: BUN/Creatinine Ratio 72.2 (10.0-20.0); Bilirubin, Total 0.4 mg/dL (0.2-1.0); Phosphorus 2.2 mg/dL (2.5-4.90); Total Protein 5.6 g/dL (6.4-8.2)
[2022-09-05] MEDS: NOREPINEPHRINE 8 MG/250ML KIT 250 ML IV SCH ×2 (05:15→14:15)
[2022-09-05 05:16] LABS: Hematocrit 27.2 % (41.0-53.0); Mean Corpuscular Hemoglobin 31.1 pg (28.0-32.0); Mean Corpuscular Hgb Conc. 33.2 g/dL (32.0-36.0); Mean Corpuscular Volume 93.7 fL (80.0-100.0); Red Cell Distribution Width 14.2 % (11.8-14.3); White Blood Cell 10.3 10^3/uL (4.4-10.8)
[2022-09-05 05:21] LABS: Basophils % (manual) 0 (0.0-2.0); Blast Cells 0; Eosinophils % (manual) 0 (0-7); Metamyelocytes % 0; Myelocytes % 0; Promyelocytes % 0; Reactive Lymphocytes 0
[2022-09-05] MEDS: METOCLOPRAMIDE HCL 5MG/ml INJ 2ml VIAL IV SCH ×3 (05:31→21:57)
[2022-09-05] MEDS: ACCU-CHEK COMFORT CURVE STRIP VI SCH ×3 (05:31→17:52)
[2022-09-05] MEDS: LACTULOSE 20Gm/30ML SOLN PO SCH ×3 (05:33→18:00)
[2022-09-05] MEDS: InsuLIN REG 1unit/0.01ml Soln (100units/ml) SC SCH ×3 (05:33→17:53)
[2022-09-05 08:21] LABS: Band Neutrophils % (manual) 7; Lymphocytes % (manual) 9 (10.0-50.0); Monocytes % (manual) 4 (0-12)
[2022-09-05] MEDS: HYDROCORTISONE ACET 25 MG RECTAL SUPP PR SCH ×2 (10:00→21:57)
[2022-09-05] MEDS ORDERED: POTASSIUM PHOSPHATE 22 MEQ in SODIUM CHL 0.9% 100 ML IV ONE (11:00)
[2022-09-05] MEDS: SODIUM CHLOR 0.9% PF (SALINE LOCK) 10ML VIAL/SYR IV SCH ×2 (11:13→21:54)
[2022-09-05] MEDS: DexAMETHasone SOD PHOS 4 MG/1ML SDV INJ IV SCH (12:13)
[2022-09-05] MEDS ORDERED: PANTOPRAZOLE 40 MG/10 ML VIAL INJ IV ONE (14:30)
[2022-09-05 14:39] LABS: Hematocrit 30.2 % (41.0-53.0); Hemoglobin 9.5 g/dL (13.5-17.5)
[2022-09-05] MEDS: OCTREOTIDE ACETATE 500 MCG in SODIUM CHL 0.9% 99 ML IV SCH (16:20)
[2022-09-05] MEDS: PANTOPRAZOLE 40mg/50ML NS AE 50 ML IV SCH ×2 (16:20→19:53)
[2022-09-05] MEDS: Glucerna Carbsteady SHAKE Vanilla 8oz PO SCH (17:30)
[2022-09-05] MEDS ORDERED: TPN PER PHARMACY IV NR ×9 (20:00)
[2022-09-05] MEDS: MELATONIN 5 MG TAB PO SCH (21:32)
[2022-09-05] MEDS: SENNA 8.6 MG TAB PO SCH (21:33)
[2022-09-06] VITALS (101 sets, daily range): BP systolic 62–263; BP diastolic 25–204
[2022-09-06] MEDS: IPRATROPIUM BROM 0.5 MG/2.5ML INH SOL NEB SCH ×4 (01:36→18:39)
[2022-09-06] MEDS: ALBUTEROL SULF 2.5 MG/0.5ML(0.5%) NEB SOLN NEB SCH ×4 (01:37→18:39)
[2022-09-06] MEDS: PANTOPRAZOLE 40mg/50ML NS AE 50 ML IV SCH ×5 (01:45→21:25)
[2022-09-06] MEDS: OCTREOTIDE ACETATE 500 MCG in SODIUM CHL 0.9% 99 ML IV SCH ×3 (01:45→21:30)
[2022-09-06] MEDS: AMIODARONE 450mg/250ml AE 250 ML IV SCH ×2 (03:06→17:30)
[2022-09-06 04:18] LABS: Hematocrit 29.2 % (41.0-53.0); Hemoglobin 9.5 g/dL (13.5-17.5); Mean Corpuscular Hemoglobin 30.7 pg (28.0-32.0); Mean Corpuscular Hgb Conc. 32.6 g/dL (32.0-36.0); Mean Corpuscular Volume 94.1 fL (80.0-100.0); Red Blood Cells 3.11 10^6/uL (4.5-5.90); Red Cell Distribution Width 16.1 % (11.8-14.3); White Blood Cell 10.4 10^3/uL (4.4-10.8)
[2022-09-06 04:33] LABS: Basophils % (manual) 0 (0.0-2.0); Blast Cells 0; Eosinophils % (manual) 0 (0-7); Metamyelocytes % 0; Myelocytes % 0; Promyelocytes % 0; Reactive Lymphocytes 0
[2022-09-06 04:35] LABS: Potassium 4.2 mmol/L (3.5-5.1)
[2022-09-06 04:43] LABS: Albumin 1.6 g/dL (3.4-5.0); BUN/Creatinine Ratio 56.9 (10.0-20.0); Bilirubin, Total 0.5 mg/dL (0.2-1.0); Calcium 7.7 mg/dL (8.5-10.1); Magnesium 2.7 mg/dL (1.6-2.6); Phosphorus 1.9 mg/dL (2.5-4.90); Total Protein 5.3 g/dL (6.4-8.2)
[2022-09-06] MEDS: METOCLOPRAMIDE HCL 5MG/ml INJ 2ml VIAL IV SCH ×3 (05:44→22:00)
[2022-09-06] MEDS: ACCU-CHEK COMFORT CURVE STRIP VI SCH ×5 (05:44→23:58)
[2022-09-06] MEDS: LACTULOSE 20Gm/30ML SOLN PO SCH ×4 (05:48→18:00)
[2022-09-06] MEDS: InsuLIN REG 1unit/0.01ml Soln (100units/ml) SC SCH ×5 (05:56→23:58)
[2022-09-06] MEDS: PHENYLEPHRINE IV 250 ML IV SCH ×5 (07:33→18:37)
[2022-09-06 07:44] LABS: Band Neutrophils % (manual) 3; Lymphocytes % (manual) 11 (10.0-50.0); Monocytes % (manual) 6 (0-12)
[2022-09-06] MEDS: PANTOPRAZOLE 40 MG/10 ML VIAL INJ IV SCH ×2 (10:00→20:20)
[2022-09-06] MEDS: HYDROCORTISONE ACET 25 MG RECTAL SUPP PR SCH ×2 (10:00→23:16)
[2022-09-06] MEDS: DexAMETHasone SOD PHOS 4 MG/1ML SDV INJ IV SCH (10:21)
[2022-09-06] MEDS: SODIUM CHLOR 0.9% PF (SALINE LOCK) 10ML VIAL/SYR IV SCH ×2 (10:22→23:00)
[2022-09-06] MEDS: MORPHINE SULFATE INJ 2 MG/ml SYRG IV PRN ×2 (10:25→15:51)
[2022-09-06] MEDS ORDERED: POTASSIUM PHOSPHATE 26.4 MEQ in SODIUM CHL 0.9% 100 ML IV ONE (11:00)
[2022-09-06] MEDS: NOREPINEPHRINE 8 MG/250ML KIT 250 ML IV SCH (12:51)
[2022-09-06] MEDS: Glucerna Carbsteady SHAKE Vanilla 8oz PO SCH (17:30)
[2022-09-06] MEDS ORDERED: TPN PER PHARMACY IV NR ×9 (20:00)
[2022-09-06] MEDS: PHENYLEPHRINE INJ 80 MG in SODIUM CHL 0.9% 242 ML IV SCH (21:23)
[2022-09-06] MEDS: SENNA 8.6 MG TAB PO SCH (22:00)
[2022-09-06] MEDS: MELATONIN 5 MG TAB PO SCH (22:00)
[2022-09-07] VITALS (106 sets, daily range): BP systolic 78–142; BP diastolic 37–86
[2022-09-07] MEDS: ALBUTEROL SULF 2.5 MG/0.5ML(0.5%) NEB SOLN NEB SCH ×3 (00:27→18:55)
[2022-09-07] MEDS: IPRATROPIUM BROM 0.5 MG/2.5ML INH SOL NEB SCH ×3 (00:28→18:55)
[2022-09-07] MEDS: PANTOPRAZOLE 40 MG/10 ML VIAL INJ IV SCH (02:26)
[2022-09-07] MEDS: PANTOPRAZOLE 40mg/50ML NS AE 50 ML IV SCH ×5 (02:27→22:45)
[2022-09-07 04:55] LABS: Hematocrit 25.7 % (41.0-53.0); Hemoglobin 8.6 g/dL (13.5-17.5); Mean Corpuscular Hemoglobin 31.2 pg (28.0-32.0); Mean Corpuscular Hgb Conc. 33.4 g/dL (32.0-36.0); Mean Corpuscular Volume 93.6 fL (80.0-100.0); Red Blood Cells 2.75 10^6/uL (4.5-5.90); Red Cell Distribution Width 16.1 % (11.8-14.3)
[2022-09-07 04:59] LABS: Basophils % (manual) 0 (0.0-2.0); Blast Cells 0; Eosinophils % (manual) 0 (0-7); Metamyelocytes % 0; Monocytes % (manual) 0 (0-12); Myelocytes % 0; Promyelocytes % 0; Reactive Lymphocytes 0
[2022-09-07 05:03] LABS: Albumin 1.7 g/dL (3.4-5.0); Potassium 4.4 mmol/L (3.5-5.1)
[2022-09-07 05:09] LABS: BUN/Creatinine Ratio 64.3 (10.0-20.0); Bilirubin, Total 0.3 mg/dL (0.2-1.0); Magnesium 2.6 mg/dL (1.6-2.6); Phosphorus 2.4 mg/dL (2.5-4.90); Total Protein 5.2 g/dL (6.4-8.2)
[2022-09-07] MEDS ORDERED: DEXTROSE 10% 250 ML IV ONE (05:30)
[2022-09-07] MEDS: LACTULOSE 20Gm/30ML SOLN PO SCH ×5 (05:42→23:47)
[2022-09-07] MEDS ORDERED: DEXTROSE 10% 250 ML Bag IV ONE (05:45)
[2022-09-07] MEDS: ACCU-CHEK COMFORT CURVE STRIP VI SCH ×4 (05:49→23:43)
[2022-09-07] MEDS: InsuLIN REG 1unit/0.01ml Soln (100units/ml) SC SCH ×4 (05:49→23:44)
[2022-09-07] MEDS: METOCLOPRAMIDE HCL 5MG/ml INJ 2ml VIAL IV SCH ×3 (06:00→22:00)
[2022-09-07] MEDS: OCTREOTIDE ACETATE 500 MCG in SODIUM CHL 0.9% 99 ML IV SCH ×2 (07:55→18:38)
[2022-09-07 08:04] LABS: Band Neutrophils % (manual) 3; Lymphocytes % (manual) 5 (10.0-50.0)
[2022-09-07] MEDS: AMIODARONE 450mg/250ml AE 250 ML IV SCH ×2 (08:30→23:30)
[2022-09-07] MEDS: DexAMETHasone SOD PHOS 4 MG/1ML SDV INJ IV SCH (10:18)
[2022-09-07] MEDS: SODIUM CHLOR 0.9% PF (SALINE LOCK) 10ML VIAL/SYR IV SCH ×2 (10:20→22:11)
[2022-09-07] MEDS ORDERED: SODIUM PHOSPHATES 20 MEQ in SODIUM CHL 0.9% 100 ML IV ONE (10:30)
[2022-09-07] MEDS: HYDROCORTISONE ACET 25 MG RECTAL SUPP PR SCH ×2 (11:02→22:18)
[2022-09-07] MEDS: PHENYLEPHRINE INJ 80 MG in SODIUM CHL 0.9% 242 ML IV SCH ×2 (11:26→21:50)
[2022-09-07] MEDS: MORPHINE SULFATE INJ 2 MG/ml SYRG IV PRN (12:28)
[2022-09-07] MEDS: NOREPINEPHRINE 8 MG/250ML KIT 250 ML IV SCH (14:15)
[2022-09-07] MEDS ORDERED: ETOMIDATE (2MG/ML) 20ML VIAL IV ONE ×2 (16:38→16:45)
[2022-09-07] MEDS ORDERED: ROCURONIUM 10MG/ML 10ML VIAL IV ONE ×2 (16:38→16:45)
[2022-09-07] MEDS ORDERED: fentaNYL Drip 2500mCg/250mlNS 250 ML IV ONE (16:50)
[2022-09-07] MEDS ORDERED: MIDAZOLAM DRIP 50 mg/50mL 50 ML IV ONE (16:50)
[2022-09-07] MEDS: Glucerna Carbsteady SHAKE Vanilla 8oz PO SCH (17:30)
[2022-09-07] MEDS: MIDAZOLAM DRIP 50 mg/50mL 50 ML IV SCH ×2 (18:39→20:33)
[2022-09-07] MEDS: fentaNYL Drip 2500mCg/250mlNS 250 ML IV SCH (18:41)
[2022-09-07] MEDS ORDERED: TPN PER PHARMACY IV NR ×6 (20:00)
[2022-09-07] MEDS: MELATONIN 5 MG TAB PO SCH (22:00)
[2022-09-07] MEDS: SENNA 8.6 MG TAB PO SCH (22:00)
[2022-09-08] VITALS (96 sets, daily range): BP systolic 86–134; BP diastolic 42–76
[2022-09-08] MEDS: MIDAZOLAM DRIP 50 mg/50mL 50 ML IV SCH ×4 (00:53→18:20)
[2022-09-08] MEDS: PANTOPRAZOLE 40mg/50ML NS AE 50 ML IV SCH ×5 (00:55→19:00)
[2022-09-08] MEDS: IPRATROPIUM BROM 0.5 MG/2.5ML INH SOL NEB SCH ×5 (01:10→23:36)
[2022-09-08] MEDS: ALBUTEROL SULF 2.5 MG/0.5ML(0.5%) NEB SOLN NEB SCH ×5 (01:10→23:36)
[2022-09-08 03:38] LABS: Hematocrit 26.8 % (41.0-53.0); Hemoglobin 8.5 g/dL (13.5-17.5); Mean Corpuscular Hemoglobin 30.7 pg (28.0-32.0); Mean Corpuscular Hgb Conc. 31.9 g/dL (32.0-36.0); Mean Corpuscular Volume 96.3 fL (80.0-100.0); Red Blood Cells 2.79 10^6/uL (4.5-5.90); Red Cell Distribution Width 16.6 % (11.8-14.3); White Blood Cell 11.8 10^3/uL (4.4-10.8)
[2022-09-08] MEDS: OCTREOTIDE ACETATE 500 MCG in SODIUM CHL 0.9% 99 ML IV SCH ×3 (03:41→21:19)
[2022-09-08 03:46] LABS: Basophils % (manual) 0 (0.0-2.0); Blast Cells 0; Eosinophils % (manual) 0 (0-7); Metamyelocytes % 0; Promyelocytes % 0; Reactive Lymphocytes 0
[2022-09-08 03:56] LABS: Albumin 1.8 g/dL (3.4-5.0); Calcium 7.7 mg/dL (8.5-10.1); Magnesium 2.4 mg/dL (1.6-2.6); Potassium 4.5 mmol/L (3.5-5.1)
[2022-09-08 04:00] LABS: BUN/Creatinine Ratio 56.1 (10.0-20.0); Bilirubin, Total 0.4 mg/dL (0.2-1.0); Total Protein 5.4 g/dL (6.4-8.2)
[2022-09-08 04:20] LABS: Band Neutrophils % (manual) 6; Lymphocytes % (manual) 7 (10.0-50.0); Monocytes % (manual) 3 (0-12); Myelocytes % 1
[2022-09-08] MEDS: PHENYLEPHRINE INJ 80 MG in SODIUM CHL 0.9% 242 ML IV SCH ×2 (04:31→21:00)
[2022-09-08] MEDS: ACCU-CHEK COMFORT CURVE STRIP VI SCH ×3 (05:07→17:33)
[2022-09-08] MEDS: InsuLIN REG 1unit/0.01ml Soln (100units/ml) SC SCH ×3 (05:10→17:35)
[2022-09-08] MEDS: LACTULOSE 20Gm/30ML SOLN PO SCH ×3 (05:10→16:10)
[2022-09-08] MEDS: METOCLOPRAMIDE HCL 5MG/ml INJ 2ml VIAL IV SCH ×3 (05:10→22:00)
[2022-09-08] MEDS: SODIUM CHLOR 0.9% PF (SALINE LOCK) 10ML VIAL/SYR IV SCH ×2 (07:04→22:22)
[2022-09-08] MEDS: PANTOPRAZOLE 40 MG/10 ML VIAL INJ IV SCH ×2 (07:29→08:06)
[2022-09-08] MEDS: DexAMETHasone SOD PHOS 4 MG/1ML SDV INJ IV SCH (08:06)
[2022-09-08] MEDS: HYDROCORTISONE ACET 25 MG RECTAL SUPP PR SCH ×2 (08:07→22:22)
[2022-09-08] MEDS ORDERED: SODIUM PHOSPHATES 40 MEQ in D5W 5% 250 ML IV ONE (10:15)
[2022-09-08] MEDS ORDERED: MEROPENEM 1GM IVPB 100 ML IV ONE (11:45)
[2022-09-08] MEDS: NOREPINEPHRINE 8 MG/250ML KIT 250 ML IV SCH (14:15)
[2022-09-08] MEDS: Glucerna Carbsteady SHAKE Vanilla 8oz PO SCH (17:30)
[2022-09-08] MEDS: fentaNYL Drip 2500mCg/250mlNS 250 ML IV SCH (18:59)
[2022-09-08] MEDS ORDERED: TPN PER PHARMACY IV NR ×9 (20:00)
[2022-09-08] MEDS: MEROPENEM 1GM IVPB 100 ML IV SCH (20:39)
[2022-09-08] MEDS: SENNA 8.6 MG TAB PO SCH (22:00)
[2022-09-08] MEDS: MELATONIN 5 MG TAB PO SCH (22:00)
[2022-09-09] VITALS (102 sets, daily range): BP systolic 83–136; BP diastolic 45–77
[2022-09-09] MEDS: InsuLIN REG 1unit/0.01ml Soln (100units/ml) SC SCH ×4 (00:47→17:05)
[2022-09-09] MEDS: ACCU-CHEK COMFORT CURVE STRIP VI SCH ×4 (00:47→17:04)
[2022-09-09] MEDS: PANTOPRAZOLE 40mg/50ML NS AE 50 ML IV SCH ×5 (01:07→20:02)
[2022-09-09] MEDS: MIDAZOLAM DRIP 50 mg/50mL 50 ML IV SCH ×4 (04:34→23:30)
[2022-09-09] MEDS: MEROPENEM 1GM IVPB 100 ML IV SCH ×3 (04:38→20:14)
[2022-09-09] MEDS: OCTREOTIDE ACETATE 500 MCG in SODIUM CHL 0.9% 99 ML IV SCH ×2 (04:52→14:05)
[2022-09-09 05:14] LABS: Red Cell Distribution Width 16.1 % (11.8-14.3); White Blood Cell 8.4 10^3/uL (4.4-10.8)
[2022-09-09 05:15] LABS: Hematocrit 23.9 % (41.0-53.0); Hemoglobin 8.1 g/dL (13.5-17.5); Mean Corpuscular Hemoglobin 31.5 pg (28.0-32.0); Mean Corpuscular Hgb Conc. 33.7 g/dL (32.0-36.0); Mean Corpuscular Volume 93.4 fL (80.0-100.0); Red Blood Cells 2.56 10^6/uL (4.5-5.90)
[2022-09-09 05:23] LABS: Albumin 1.6 g/dL (3.4-5.0); Calcium 7.8 mg/dL (8.5-10.1); Magnesium 2.2 mg/dL (1.6-2.6); Potassium 4.1 mmol/L (3.5-5.1)
[2022-09-09 05:24] LABS: Band Neutrophils % (manual) 0; Basophils % (manual) 0 (0.0-2.0); Blast Cells 0; Metamyelocytes % 0; Myelocytes % 0; Promyelocytes % 0; Reactive Lymphocytes 0
[2022-09-09 05:26] LABS: BUN/Creatinine Ratio 59.4 (10.0-20.0); Bilirubin, Total 0.4 mg/dL (0.2-1.0); Phosphorus 1.6 mg/dL (2.5-4.90); Total Protein 5.2 g/dL (6.4-8.2)
[2022-09-09] MEDS: METOCLOPRAMIDE HCL 5MG/ml INJ 2ml VIAL IV SCH ×3 (06:00→22:00)
[2022-09-09] MEDS: LACTULOSE 20Gm/30ML SOLN PO SCH ×4 (06:00→11:20)
[2022-09-09] MEDS: IPRATROPIUM BROM 0.5 MG/2.5ML INH SOL NEB SCH ×3 (06:09→17:51)
[2022-09-09] MEDS: ALBUTEROL SULF 2.5 MG/0.5ML(0.5%) NEB SOLN NEB SCH ×3 (06:09→17:51)
[2022-09-09] MEDS: SODIUM CHLOR 0.9% PF (SALINE LOCK) 10ML VIAL/SYR IV SCH ×2 (07:34→22:03)
[2022-09-09] MEDS: DexAMETHasone SOD PHOS 4 MG/1ML SDV INJ IV SCH (08:15)
[2022-09-09] MEDS: HYDROCORTISONE ACET 25 MG RECTAL SUPP PR SCH ×2 (08:15→22:03)
[2022-09-09 08:24] LABS: Eosinophils % (manual) 1 (0-7); Lymphocytes % (manual) 6 (10.0-50.0); Monocytes % (manual) 1 (0-12)
[2022-09-09] MEDS ORDERED: POTASSIUM PHOSPHATE 44 MEQ in D5W 5% 250 ML IV ONE (09:00)
[2022-09-09] MEDS ORDERED: SODIUM PHOSPHATES 40 MEQ in D5W 5% 250 ML IV ONE (09:15)
[2022-09-09] MEDS: NOREPINEPHRINE 8 MG/250ML KIT 250 ML IV SCH (11:06)
[2022-09-09] MEDS ORDERED: FUROSEMIDE 40 MG/4 ML VIAL IV ONE (12:30)
[2022-09-09] MEDS: Glucerna Carbsteady SHAKE Vanilla 8oz PO SCH (17:05)
[2022-09-09] MEDS: fentaNYL Drip 2500mCg/250mlNS 250 ML IV SCH ×2 (18:59→19:10)
[2022-09-09] MEDS ORDERED: TPN PER PHARMACY IV NR ×9 (20:00)
[2022-09-09] MEDS: SENNA 8.6 MG TAB PO SCH (22:00)
[2022-09-10] VITALS (104 sets, daily range): BP systolic 66–137; BP diastolic 35–81
[2022-09-10] MEDS: ALBUTEROL SULF 2.5 MG/0.5ML(0.5%) NEB SOLN NEB SCH ×5 (00:13→23:58)
[2022-09-10] MEDS: IPRATROPIUM BROM 0.5 MG/2.5ML INH SOL NEB SCH ×5 (00:13→23:58)
[2022-09-10] MEDS: ACCU-CHEK COMFORT CURVE STRIP VI SCH ×4 (00:25→16:56)
[2022-09-10] MEDS: InsuLIN REG 1unit/0.01ml Soln (100units/ml) SC SCH ×4 (00:28→16:56)
[2022-09-10] MEDS: PANTOPRAZOLE 40mg/50ML NS AE 50 ML IV SCH ×4 (02:20→17:42)
[2022-09-10] MEDS: OCTREOTIDE ACETATE 500 MCG in SODIUM CHL 0.9% 99 ML IV SCH ×2 (02:47→12:41)
[2022-09-10 03:50] LABS: Hematocrit 25.6 % (41.0-53.0); Hemoglobin 8.5 g/dL (13.5-17.5); Mean Corpuscular Hemoglobin 31.1 pg (28.0-32.0); Mean Corpuscular Hgb Conc. 33.2 g/dL (32.0-36.0); Mean Corpuscular Volume 93.6 fL (80.0-100.0); Red Blood Cells 2.74 10^6/uL (4.5-5.90); Red Cell Distribution Width 15.9 % (11.8-14.3); White Blood Cell 8.3 10^3/uL (4.4-10.8)
[2022-09-10] MEDS: MEROPENEM 1GM IVPB 100 ML IV SCH ×3 (03:53→19:56)
[2022-09-10 04:06] LABS: Albumin 1.6 g/dL (3.4-5.0); Calcium 7.2 mg/dL (8.5-10.1); Potassium 3.9 mmol/L (3.5-5.1)
[2022-09-10 04:10] LABS: BUN/Creatinine Ratio 65.6 (10.0-20.0); Bilirubin, Total 0.6 mg/dL (0.2-1.0); Phosphorus 2.4 mg/dL (2.5-4.90); Total Protein 5.2 g/dL (6.4-8.2)
[2022-09-10 04:19] LABS: Basophils % (manual) 0 (0.0-2.0); Blast Cells 0; Eosinophils % (manual) 0 (0-7); Promyelocytes % 0; Reactive Lymphocytes 0
[2022-09-10] MEDS: LACTULOSE 20Gm/30ML SOLN PO SCH ×4 (05:33→15:26)
[2022-09-10] MEDS: METOCLOPRAMIDE HCL 5MG/ml INJ 2ml VIAL IV SCH ×3 (05:40→21:49)
[2022-09-10 07:11] LABS: Band Neutrophils % (manual) 2; Lymphocytes % (manual) 12 (10.0-50.0); Metamyelocytes % 4; Monocytes % (manual) 2 (0-12); Myelocytes % 3
[2022-09-10] MEDS: MIDAZOLAM DRIP 50 mg/50mL 50 ML IV SCH ×3 (07:42→21:49)
[2022-09-10] MEDS: HYDROCORTISONE ACET 25 MG RECTAL SUPP PR SCH ×2 (07:43→21:50)
[2022-09-10] MEDS: acetaZOLAMIDE SODIUM 500 MG VL IV SCH ×2 (07:43→11:04)
[2022-09-10] MEDS: SODIUM CHLOR 0.9% PF (SALINE LOCK) 10ML VIAL/SYR IV SCH ×2 (07:43→21:50)
[2022-09-10] MEDS: DexAMETHasone SOD PHOS 4 MG/1ML SDV INJ IV SCH (07:43)
[2022-09-10] MEDS ORDERED: POTASSIUM PHOSPHATE 22 MEQ in SODIUM CHL 0.9% 100 ML IV ONE (09:45)
[2022-09-10] MEDS: NOREPINEPHRINE 8 MG/250ML KIT 250 ML IV SCH (11:23)
[2022-09-10] MEDS: Glucerna Carbsteady SHAKE Vanilla 8oz PO SCH (14:28)
[2022-09-10] MEDS: PHENYLEPHRINE INJ 80 MG in SODIUM CHL 0.9% 242 ML IV SCH (16:28)
[2022-09-10] MEDS ORDERED: TPN PER PHARMACY IV NR ×9 (20:00)
[2022-09-10] MEDS: SENNA 8.6 MG TAB PO SCH (21:50)
[2022-09-11] VITALS (104 sets, daily range): BP systolic 82–134; BP diastolic 44–70
[2022-09-11] MEDS: LACTULOSE 20Gm/30ML SOLN PO SCH ×5 (00:10→23:34)
[2022-09-11] MEDS: ACCU-CHEK COMFORT CURVE STRIP VI SCH ×5 (00:11→23:29)
[2022-09-11] MEDS: OCTREOTIDE ACETATE 500 MCG in SODIUM CHL 0.9% 99 ML IV SCH ×2 (00:11→10:46)
[2022-09-11] MEDS: PANTOPRAZOLE 40mg/50ML NS AE 50 ML IV SCH ×3 (00:13→10:45)
[2022-09-11] MEDS ORDERED: PANTOPRAZOLE 40 MG/10 ML VIAL INJ IV ONE ×2 (00:13→06:10)
[2022-09-11] MEDS: InsuLIN REG 1unit/0.01ml Soln (100units/ml) SC SCH ×5 (00:17→23:33)
[2022-09-11] MEDS: MIDAZOLAM DRIP 50 mg/50mL 50 ML IV SCH ×4 (03:39→18:12)
[2022-09-11] MEDS: MEROPENEM 1GM IVPB 100 ML IV SCH ×3 (03:39→19:50)
[2022-09-11 04:40] LABS: White Blood Cell 9.5 10^3/uL (4.4-10.8)
[2022-09-11 04:42] LABS: Hematocrit 24.8 % (41.0-53.0); Hemoglobin 8.5 g/dL (13.5-17.5); Mean Corpuscular Hemoglobin 32.1 pg (28.0-32.0); Mean Corpuscular Hgb Conc. 34.2 g/dL (32.0-36.0); Mean Corpuscular Volume 93.7 fL (80.0-100.0); Red Blood Cells 2.65 10^6/uL (4.5-5.90); Red Cell Distribution Width 16.4 % (11.8-14.3)
[2022-09-11 04:52] LABS: Calcium 7.2 mg/dL (8.5-10.1); Potassium 4.1 mmol/L (3.5-5.1)
[2022-09-11 04:53] LABS: Basophils % (manual) 0 (0.0-2.0); Blast Cells 0; Eosinophils % (manual) 0 (0-7); Promyelocytes % 0; Reactive Lymphocytes 0
[2022-09-11 04:58] LABS: Albumin 1.5 g/dL (3.4-5.0); BUN/Creatinine Ratio 57.8 (10.0-20.0); Bilirubin, Total 0.6 mg/dL (0.2-1.0); Magnesium 2.2 mg/dL (1.6-2.6); Phosphorus 2.6 mg/dL (2.5-4.90); Total Protein 5.3 g/dL (6.4-8.2)
[2022-09-11] MEDS: METOCLOPRAMIDE HCL 5MG/ml INJ 2ml VIAL IV SCH ×3 (05:53→21:33)
[2022-09-11] MEDS: ALBUTEROL SULF 2.5 MG/0.5ML(0.5%) NEB SOLN NEB SCH ×3 (06:32→18:26)
[2022-09-11] MEDS: IPRATROPIUM BROM 0.5 MG/2.5ML INH SOL NEB SCH ×3 (06:33→18:26)
[2022-09-11 07:01] LABS: Band Neutrophils % (manual) 12; Lymphocytes % (manual) 7 (10.0-50.0); Metamyelocytes % 1; Monocytes % (manual) 2 (0-12); Myelocytes % 2
[2022-09-11] MEDS: SODIUM CHLOR 0.9% PF (SALINE LOCK) 10ML VIAL/SYR IV SCH ×2 (07:06→21:33)
[2022-09-11] MEDS: DexAMETHasone SOD PHOS 4 MG/1ML SDV INJ IV SCH (07:17)
[2022-09-11] MEDS: HYDROCORTISONE ACET 25 MG RECTAL SUPP PR SCH ×2 (07:17→21:33)
[2022-09-11] MEDS: NOREPINEPHRINE 8 MG/250ML KIT 250 ML IV SCH (10:38)
[2022-09-11] MEDS ORDERED: FUROSEMIDE 40 MG/4 ML VIAL IV ONE (12:30)
[2022-09-11] MEDS: PHENYLEPHRINE INJ 80 MG in SODIUM CHL 0.9% 242 ML IV SCH (13:15)
[2022-09-11] MEDS: acetaZOLAMIDE SODIUM 500 MG VL IV SCH (13:21)
[2022-09-11] MEDS: Glucerna Carbsteady SHAKE Vanilla 8oz PO SCH (14:12)
[2022-09-11] MEDS: fentaNYL Drip 2500mCg/250mlNS 250 ML IV SCH (15:06)
[2022-09-11] MEDS ORDERED: TPN PER PHARMACY IV NR ×18 (20:00)
[2022-09-11] MEDS: SENNA 8.6 MG TAB PO SCH (21:33)
[2022-09-12] VITALS (101 sets, daily range): BP systolic 85–141; BP diastolic 23–77
[2022-09-12] MEDS: MIDAZOLAM DRIP 50 mg/50mL 50 ML IV SCH ×5 (00:31→22:53)
[2022-09-12] MEDS: MEROPENEM 1GM IVPB 100 ML IV SCH ×3 (04:13→20:15)
[2022-09-12 04:29] LABS: Hematocrit 26.5 % (41.0-53.0); Hemoglobin 8.8 g/dL (13.5-17.5); Mean Corpuscular Hemoglobin 31.1 pg (28.0-32.0); Mean Corpuscular Hgb Conc. 33.3 g/dL (32.0-36.0); Mean Corpuscular Volume 93.6 fL (80.0-100.0); Red Blood Cells 2.83 10^6/uL (4.5-5.90); White Blood Cell 10.3 10^3/uL (4.4-10.8)
[2022-09-12 04:44] LABS: Basophils % (manual) 0 (0.0-2.0); Blast Cells 0; Eosinophils % (manual) 0 (0-7); Metamyelocytes % 0; Promyelocytes % 0; Reactive Lymphocytes 0
[2022-09-12 04:50] LABS: Albumin 1.6 g/dL (3.4-5.0); Calcium 7.4 mg/dL (8.5-10.1); Magnesium 2.3 mg/dL (1.6-2.6); Potassium 3.8 mmol/L (3.5-5.1)
[2022-09-12 04:53] LABS: Bilirubin, Total 0.6 mg/dL (0.2-1.0); Phosphorus 1.8 mg/dL (2.5-4.90); Total Protein 5.4 g/dL (6.4-8.2)
[2022-09-12] MEDS: LACTULOSE 20Gm/30ML SOLN PO SCH ×3 (05:34→17:26)
[2022-09-12] MEDS: METOCLOPRAMIDE HCL 5MG/ml INJ 2ml VIAL IV SCH ×3 (05:35→21:20)
[2022-09-12] MEDS: ACCU-CHEK COMFORT CURVE STRIP VI SCH ×3 (05:35→17:23)
[2022-09-12] MEDS: InsuLIN REG 1unit/0.01ml Soln (100units/ml) SC SCH ×3 (05:37→17:50)
[2022-09-12 05:43] LABS: Band Neutrophils % (manual) 11; Lymphocytes % (manual) 11 (10.0-50.0); Monocytes % (manual) 4 (0-12); Myelocytes % 5
[2022-09-12] MEDS: ALBUTEROL SULF 2.5 MG/0.5ML(0.5%) NEB SOLN NEB SCH ×4 (06:14→18:55)
[2022-09-12] MEDS: IPRATROPIUM BROM 0.5 MG/2.5ML INH SOL NEB SCH ×4 (06:14→18:55)
[2022-09-12] MEDS: SODIUM CHLOR 0.9% PF (SALINE LOCK) 10ML VIAL/SYR IV SCH ×2 (09:41→21:21)
[2022-09-12] MEDS: FUROSEMIDE 40 MG/4 ML VIAL IV SCH (09:41)
[2022-09-12] MEDS: PANTOPRAZOLE 40 MG/10 ML VIAL INJ IV SCH ×2 (09:41→21:20)
[2022-09-12] MEDS: DexAMETHasone SOD PHOS 4 MG/1ML SDV INJ IV SCH (09:41)
[2022-09-12] MEDS: HYDROCORTISONE ACET 25 MG RECTAL SUPP PR SCH ×2 (09:42→21:20)
[2022-09-12] MEDS ORDERED: POTASSIUM PHOSPHATE 44 MEQ in D5W 5% 250 ML IV ONE (10:00)
[2022-09-12] MEDS: NOREPINEPHRINE 8 MG/250ML KIT 250 ML IV SCH (14:15)
[2022-09-12] MEDS: Glucerna Carbsteady SHAKE Vanilla 8oz PO SCH (17:22)
[2022-09-12] MEDS ORDERED: TPN PER PHARMACY IV NR ×9 (20:00)
[2022-09-12] MEDS: PHENYLEPHRINE INJ 80 MG in SODIUM CHL 0.9% 242 ML IV SCH (21:08)
[2022-09-12] MEDS: SENNA 8.6 MG TAB PO SCH (21:16)
[2022-09-13] VITALS (101 sets, daily range): BP systolic 85–156; BP diastolic 44–85
[2022-09-13] MEDS: IPRATROPIUM BROM 0.5 MG/2.5ML INH SOL NEB SCH ×4 (00:12→18:28)
[2022-09-13] MEDS: ALBUTEROL SULF 2.5 MG/0.5ML(0.5%) NEB SOLN NEB SCH ×4 (00:12→18:27)
[2022-09-13] MEDS: LACTULOSE 20Gm/30ML SOLN PO SCH ×4 (00:20→18:14)
[2022-09-13] MEDS: fentaNYL Drip 2500mCg/250mlNS 250 ML IV SCH ×2 (03:33→17:20)
[2022-09-13] MEDS: MEROPENEM 1GM IVPB 100 ML IV SCH ×3 (03:34→19:59)
[2022-09-13 04:53] LABS: Albumin 1.7 g/dL (3.4-5.0); Calcium 7.4 mg/dL (8.5-10.1); Magnesium 2.2 mg/dL (1.6-2.6); Potassium 3.6 mmol/L (3.5-5.1)
[2022-09-13 04:56] LABS: BUN/Creatinine Ratio 78.3 (10.0-20.0); Bilirubin, Total 0.5 mg/dL (0.2-1.0); Phosphorus 1.8 mg/dL (2.5-4.90); Total Protein 5.5 g/dL (6.4-8.2)
[2022-09-13] MEDS: METOCLOPRAMIDE HCL 5MG/ml INJ 2ml VIAL IV SCH ×3 (05:58→18:13)
[2022-09-13] MEDS: ACCU-CHEK COMFORT CURVE STRIP VI SCH ×4 (05:59→18:14)
[2022-09-13] MEDS: InsuLIN REG 1unit/0.01ml Soln (100units/ml) SC SCH ×4 (05:59→18:06)
[2022-09-13] MEDS ORDERED: POTASSIUM PHOSPHATE 44 MEQ in D5W 5% 250 ML IV ONE (09:45)
[2022-09-13] MEDS: SODIUM CHLOR 0.9% PF (SALINE LOCK) 10ML VIAL/SYR IV SCH ×2 (09:48→21:35)
[2022-09-13] MEDS: MIDAZOLAM DRIP 50 mg/50mL 50 ML IV SCH ×4 (09:48→21:27)
[2022-09-13] MEDS: PANTOPRAZOLE 40 MG/10 ML VIAL INJ IV SCH ×2 (09:48→21:35)
[2022-09-13] MEDS: FUROSEMIDE 40 MG/4 ML VIAL IV SCH (09:48)
[2022-09-13] MEDS: DexAMETHasone SOD PHOS 4 MG/1ML SDV INJ IV SCH (09:49)
[2022-09-13] MEDS: HYDROCORTISONE ACET 25 MG RECTAL SUPP PR SCH ×2 (10:00→21:35)
[2022-09-13] MEDS: PHENYLEPHRINE INJ 80 MG in SODIUM CHL 0.9% 242 ML IV SCH ×2 (10:48→22:16)
[2022-09-13] MEDS: NOREPINEPHRINE 8 MG/250ML KIT 250 ML IV SCH (14:15)
[2022-09-13] MEDS: Glucerna Carbsteady SHAKE Vanilla 8oz PO SCH (17:30)
[2022-09-13] MEDS ORDERED: TPN PER PHARMACY IV NR ×9 (20:00)
[2022-09-13] MEDS: SENNA 8.6 MG TAB PO SCH (21:35)
[2022-09-14] VITALS (108 sets, daily range): BP systolic 80–123; BP diastolic 45–76
[2022-09-14] MEDS: LACTULOSE 20Gm/30ML SOLN PO SCH ×5 (00:25→23:59)
[2022-09-14] MEDS: InsuLIN REG 1unit/0.01ml Soln (100units/ml) SC SCH ×5 (00:25→23:58)
[2022-09-14] MEDS: ACCU-CHEK COMFORT CURVE STRIP VI SCH ×5 (00:25→23:59)
[2022-09-14] MEDS: IPRATROPIUM BROM 0.5 MG/2.5ML INH SOL NEB SCH ×4 (00:31→18:44)
[2022-09-14] MEDS: ALBUTEROL SULF 2.5 MG/0.5ML(0.5%) NEB SOLN NEB SCH ×4 (00:32→18:44)
[2022-09-14] MEDS: MIDAZOLAM DRIP 50 mg/50mL 50 ML IV SCH ×5 (02:01→20:15)
[2022-09-14] MEDS: fentaNYL Drip 2500mCg/250mlNS 250 ML IV SCH ×2 (03:41→12:41)
[2022-09-14] MEDS: MEROPENEM 1GM IVPB 100 ML IV SCH ×3 (03:45→20:14)
[2022-09-14 04:25] LABS: Hematocrit 26.5 % (41.0-53.0); Hemoglobin 8.9 g/dL (13.5-17.5); Mean Corpuscular Hemoglobin 30.8 pg (28.0-32.0); Mean Corpuscular Hgb Conc. 33.6 g/dL (32.0-36.0); Mean Corpuscular Volume 91.8 fL (80.0-100.0); Red Blood Cells 2.89 10^6/uL (4.5-5.90); White Blood Cell 11.7 10^3/uL (4.4-10.8)
[2022-09-14 04:40] LABS: Basophils % (manual) 0 (0.0-2.0); Blast Cells 0; Promyelocytes % 0; Reactive Lymphocytes 0
[2022-09-14 04:42] LABS: Magnesium 2.2 mg/dL (1.6-2.6); Potassium 3.8 mmol/L (3.5-5.1)
[2022-09-14 04:48] LABS: Albumin 1.7 g/dL (3.4-5.0); BUN/Creatinine Ratio 84.8 (10.0-20.0); Bilirubin, Total 0.6 mg/dL (0.2-1.0); Calcium 7.2 mg/dL (8.5-10.1); Phosphorus 2.1 mg/dL (2.5-4.90); Total Protein 5.3 g/dL (6.4-8.2)
[2022-09-14] MEDS: METOCLOPRAMIDE HCL 5MG/ml INJ 2ml VIAL IV SCH ×4 (05:34→17:54)
[2022-09-14 07:51] LABS: Band Neutrophils % (manual) 4; Eosinophils % (manual) 1 (0-7); Lymphocytes % (manual) 10 (10.0-50.0); Metamyelocytes % 2; Monocytes % (manual) 4 (0-12); Myelocytes % 1
[2022-09-14] MEDS: DexAMETHasone SOD PHOS 4 MG/1ML SDV INJ IV SCH (09:55)
[2022-09-14] MEDS: PANTOPRAZOLE 40 MG/10 ML VIAL INJ IV SCH ×2 (09:56→21:57)
[2022-09-14] MEDS: SODIUM CHLOR 0.9% PF (SALINE LOCK) 10ML VIAL/SYR IV SCH ×2 (09:56→21:58)
[2022-09-14] MEDS: FUROSEMIDE 40 MG/4 ML VIAL IV SCH (09:56)
[2022-09-14] MEDS: HYDROCORTISONE ACET 25 MG RECTAL SUPP PR SCH ×2 (09:58→21:57)
[2022-09-14] MEDS: POTASSIUM PHOSPHATE 22 MEQ in SODIUM CHL 0.9% 100 ML IV SCH ×2 (11:26→16:10)
[2022-09-14] MEDS: PHENYLEPHRINE INJ 80 MG in SODIUM CHL 0.9% 242 ML IV SCH ×2 (11:37→22:20)
[2022-09-14] MEDS: NOREPINEPHRINE 8 MG/250ML KIT 250 ML IV SCH (14:15)
[2022-09-14] MEDS ORDERED: TPN PER PHARMACY IV NR ×10 (20:00)
[2022-09-14] MEDS: SENNA 8.6 MG TAB PO SCH (21:57)
[2022-09-15] VITALS (107 sets, daily range): BP systolic 80–132; BP diastolic 44–94
[2022-09-15] MEDS: ALBUTEROL SULF 2.5 MG/0.5ML(0.5%) NEB SOLN NEB SCH ×4 (00:23→18:21)
[2022-09-15] MEDS: IPRATROPIUM BROM 0.5 MG/2.5ML INH SOL NEB SCH ×4 (00:23→18:21)
[2022-09-15] MEDS: fentaNYL Drip 2500mCg/250mlNS 250 ML IV SCH ×2 (01:07→13:29)
[2022-09-15] MEDS: MIDAZOLAM DRIP 50 mg/50mL 50 ML IV SCH ×5 (01:08→21:02)
[2022-09-15] MEDS: MEROPENEM 1GM IVPB 100 ML IV SCH ×3 (03:52→20:12)
[2022-09-15 04:43] LABS: Albumin 1.6 g/dL (3.4-5.0); BUN/Creatinine Ratio 107.7 (10.0-20.0); Calcium 7.4 mg/dL (8.5-10.1); Magnesium 2.2 mg/dL (1.6-2.6)
[2022-09-15 04:46] LABS: Bilirubin, Total 0.5 mg/dL (0.2-1.0); Phosphorus 2.3 mg/dL (2.5-4.90); Total Protein 5.5 g/dL (6.4-8.2)
[2022-09-15] MEDS: METOCLOPRAMIDE HCL 5MG/ml INJ 2ml VIAL IV SCH ×5 (05:43→23:28)
[2022-09-15] MEDS: LACTULOSE 20Gm/30ML SOLN PO SCH ×4 (05:43→23:28)
[2022-09-15] MEDS: InsuLIN REG 1unit/0.01ml Soln (100units/ml) SC SCH ×4 (05:45→23:28)
[2022-09-15] MEDS: ACCU-CHEK COMFORT CURVE STRIP VI SCH ×4 (05:46→23:28)
[2022-09-15] MEDS: HYDROCORTISONE ACET 25 MG RECTAL SUPP PR SCH ×2 (09:53→21:10)
[2022-09-15] MEDS: DexAMETHasone SOD PHOS 4 MG/1ML SDV INJ IV SCH (10:05)
[2022-09-15] MEDS: PANTOPRAZOLE 40 MG/10 ML VIAL INJ IV SCH ×2 (10:05→21:03)
[2022-09-15] MEDS: FUROSEMIDE 40 MG/4 ML VIAL IV SCH (10:05)
[2022-09-15] MEDS: ENOXAPARIN SOD 40 MG/0.4 ML SYRINGE SC SCH (10:18)
[2022-09-15] MEDS: SODIUM CHLOR 0.9% PF (SALINE LOCK) 10ML VIAL/SYR IV SCH ×2 (10:18→21:04)
[2022-09-15] MEDS: PHENYLEPHRINE INJ 80 MG in SODIUM CHL 0.9% 242 ML IV SCH ×2 (11:46→23:22)
[2022-09-15] MEDS ORDERED: POTASSIUM PHOSPHATE 44 MEQ in D5W 5% 250 ML IV ONE (12:00)
[2022-09-15] MEDS: NOREPINEPHRINE 8 MG/250ML KIT 250 ML IV SCH (14:15)
[2022-09-15] MEDS ORDERED: TPN PER PHARMACY IV NR ×10 (20:00)
[2022-09-15] MEDS: SENNA 8.6 MG TAB PO SCH (21:04)
[2022-09-16] VITALS (105 sets, daily range): BP systolic 77–138; BP diastolic 52–98
[2022-09-16] MEDS: ALBUTEROL SULF 2.5 MG/0.5ML(0.5%) NEB SOLN NEB SCH ×4 (00:22→18:02)
[2022-09-16] MEDS: IPRATROPIUM BROM 0.5 MG/2.5ML INH SOL NEB SCH ×4 (00:22→18:02)
[2022-09-16] MEDS: MIDAZOLAM DRIP 50 mg/50mL 50 ML IV SCH ×4 (01:54→14:59)
[2022-09-16] MEDS: fentaNYL Drip 2500mCg/250mlNS 250 ML IV SCH ×3 (01:57→21:00)
[2022-09-16] MEDS: MEROPENEM 1GM IVPB 100 ML IV SCH ×3 (03:29→20:03)
[2022-09-16 04:21] LABS: Albumin 1.7 g/dL (3.4-5.0); Calcium 7.1 mg/dL (8.5-10.1); Magnesium 2.5 mg/dL (1.6-2.6); Potassium 4.1 mmol/L (3.5-5.1)
[2022-09-16 04:24] LABS: BUN/Creatinine Ratio 92.3 (10.0-20.0); Bilirubin, Total 0.6 mg/dL (0.2-1.0); Phosphorus 2.7 mg/dL (2.5-4.90); Total Protein 5.5 g/dL (6.4-8.2)
[2022-09-16] MEDS: ACCU-CHEK COMFORT CURVE STRIP VI SCH ×3 (05:37→16:59)
[2022-09-16] MEDS: LACTULOSE 20Gm/30ML SOLN PO SCH ×4 (05:37→23:55)
[2022-09-16] MEDS: METOCLOPRAMIDE HCL 5MG/ml INJ 2ml VIAL IV SCH ×3 (05:37→16:34)
[2022-09-16] MEDS: InsuLIN REG 1unit/0.01ml Soln (100units/ml) SC SCH ×3 (05:40→16:59)
[2022-09-16 07:48] LABS: Hematocrit 32.8 % (41.0-53.0); Mean Corpuscular Hemoglobin 31.2 pg (28.0-32.0); Mean Corpuscular Hgb Conc. 33.4 g/dL (32.0-36.0); Mean Corpuscular Volume 93.4 fL (80.0-100.0); Red Blood Cells 3.51 10^6/uL (4.5-5.90); Red Cell Distribution Width 17.2 % (11.8-14.3); White Blood Cell 10.2 10^3/uL (4.4-10.8)
[2022-09-16 07:53] LABS: Band Neutrophils % (manual) 0; Basophils % (manual) 0 (0.0-2.0); Blast Cells 0; Eosinophils % (manual) 0 (0-7); Myelocytes % 0; Promyelocytes % 0; Reactive Lymphocytes 0
[2022-09-16 08:33] LABS: Lymphocytes % (manual) 11 (10.0-50.0); Metamyelocytes % 1; Monocytes % (manual) 6 (0-12)
[2022-09-16] MEDS: HYDROCORTISONE ACET 25 MG RECTAL SUPP PR SCH ×2 (08:53→21:25)
[2022-09-16] MEDS: ENOXAPARIN SOD 40 MG/0.4 ML SYRINGE SC SCH (08:54)
[2022-09-16] MEDS: PHENYLEPHRINE INJ 80 MG in SODIUM CHL 0.9% 242 ML IV SCH (08:54)
[2022-09-16] MEDS: PANTOPRAZOLE 40 MG/10 ML VIAL INJ IV SCH ×2 (08:55→21:16)
[2022-09-16] MEDS: SODIUM CHLOR 0.9% PF (SALINE LOCK) 10ML VIAL/SYR IV SCH ×2 (08:55→21:15)
[2022-09-16] MEDS: FUROSEMIDE 40 MG/4 ML VIAL IV SCH (08:55)
[2022-09-16] MEDS: DexAMETHasone SOD PHOS 4 MG/1ML SDV INJ IV SCH (08:55)
[2022-09-16] MEDS ORDERED: CALCIUM GLUC 1,000mg/50ml-NS 50 ML IV ONE (09:30)
[2022-09-16] MEDS: NOREPINEPHRINE 8 MG/250ML KIT 250 ML IV SCH (11:35)
[2022-09-16] MEDS: TPN PER PHARMACY IV NR ×10 (19:57)
[2022-09-16] MEDS: SENNA 8.6 MG TAB PO SCH (21:15)
[2022-09-17] VITALS (107 sets, daily range): BP systolic 76–153; BP diastolic 37–87
[2022-09-17] MEDS: ACCU-CHEK COMFORT CURVE STRIP VI SCH ×5 (00:02→23:26)
[2022-09-17] MEDS: METOCLOPRAMIDE HCL 5MG/ml INJ 2ml VIAL IV SCH ×5 (00:03→23:26)
[2022-09-17] MEDS: ALBUTEROL SULF 2.5 MG/0.5ML(0.5%) NEB SOLN NEB SCH ×5 (00:06→23:58)
[2022-09-17] MEDS: IPRATROPIUM BROM 0.5 MG/2.5ML INH SOL NEB SCH ×5 (00:07→23:58)
[2022-09-17] MEDS: InsuLIN REG 1unit/0.01ml Soln (100units/ml) SC SCH ×5 (00:10→23:33)
[2022-09-17] MEDS: MEROPENEM 1GM IVPB 100 ML IV SCH ×3 (04:00→19:43)
[2022-09-17 04:29] LABS: Albumin 1.8 g/dL (3.4-5.0); Calcium 7.5 mg/dL (8.5-10.1); Magnesium 2.4 mg/dL (1.6-2.6); Potassium 4.1 mmol/L (3.5-5.1)
[2022-09-17 04:33] LABS: BUN/Creatinine Ratio 97.6 (10.0-20.0); Bilirubin, Total 0.5 mg/dL (0.2-1.0); Phosphorus 2.4 mg/dL (2.5-4.90); Total Protein 5.4 g/dL (6.4-8.2)
[2022-09-17] MEDS: LACTULOSE 20Gm/30ML SOLN PO SCH ×4 (05:31→23:33)
[2022-09-17] MEDS: MIDAZOLAM DRIP 50 mg/50mL 50 ML IV SCH ×4 (08:03→21:01)
[2022-09-17] MEDS ORDERED: POTASSIUM PHOSPHATE 22 MEQ in SODIUM CHL 0.9% 100 ML IV ONE (09:45)
[2022-09-17] MEDS: ENOXAPARIN SOD 40 MG/0.4 ML SYRINGE SC SCH (10:47)
[2022-09-17] MEDS: PANTOPRAZOLE 40 MG/10 ML VIAL INJ IV SCH ×2 (10:47→21:15)
[2022-09-17] MEDS: HYDROCORTISONE ACET 25 MG RECTAL SUPP PR SCH ×2 (10:48→21:15)
[2022-09-17] MEDS: FUROSEMIDE 40 MG/4 ML VIAL IV SCH (10:48)
[2022-09-17] MEDS: DexAMETHasone SOD PHOS 4 MG/1ML SDV INJ IV SCH (10:49)
[2022-09-17] MEDS: SODIUM CHLOR 0.9% PF (SALINE LOCK) 10ML VIAL/SYR IV SCH ×2 (10:50→21:15)
[2022-09-17] MEDS: fentaNYL Drip 2500mCg/250mlNS 250 ML IV SCH ×2 (12:06→23:24)
[2022-09-17] MEDS: NOREPINEPHRINE 8 MG/250ML KIT 250 ML IV SCH (14:15)
[2022-09-17] MEDS: TPN PER PHARMACY IV NR ×20 (19:01→19:57)
[2022-09-17] MEDS: PHENYLEPHRINE INJ 80 MG in SODIUM CHL 0.9% 242 ML IV SCH (20:56)
[2022-09-17] MEDS: SENNA 8.6 MG TAB PO SCH (21:15)
[2022-09-18] VITALS (98 sets, daily range): BP systolic 75–183; BP diastolic 43–96
[2022-09-18 04:06] LABS: Basophils # (auto) 0 10 ^3/uL (0-0.2); Eosinophils # (auto) 0 10 ^3/uL (0-0.8); Lymphocytes # (auto) 0.8 10 ^3/uL (0.4-5.4); Lymphocytes % (auto) 8.3 % (10.0-50.0); Monocytes # (auto) 0.4 10 ^3/uL (0-1.3); White Blood Cell 9.3 10^3/uL (4.4-10.8)
[2022-09-18 04:27] LABS: Basophils % (auto) 0.5 % (0.0-2.0); Eosinophils % (auto) 0.4 % (0.0-7.0); Hematocrit 26.1 % (41.0-53.0); Hemoglobin 8.5 g/dL (13.5-17.5); Mean Corpuscular Hemoglobin 36.3 pg (28.0-32.0); Mean Corpuscular Hgb Conc. 32.6 g/dL (32.0-36.0); Mean Corpuscular Volume 111.5 fL (80.0-100.0); Monocytes % (auto) 4.6 % (0.0-12.0); Neutrophils % (auto) 86.2 % (37.0-80.0); Nucleated Red Blood Cells % 0.2 %; Red Blood Cells 2.34 10^6/uL (4.5-5.90); Red Cell Distribution Width 18.7 % (11.8-14.3)
[2022-09-18] MEDS: MEROPENEM 1GM IVPB 100 ML IV SCH ×3 (04:38→20:00)
[2022-09-18] MEDS: MIDAZOLAM DRIP 50 mg/50mL 50 ML IV SCH ×2 (05:41→17:37)
[2022-09-18] MEDS: ACCU-CHEK COMFORT CURVE STRIP VI SCH ×4 (05:45→23:54)
[2022-09-18] MEDS: InsuLIN REG 1unit/0.01ml Soln (100units/ml) SC SCH ×4 (05:45→23:53)
[2022-09-18] MEDS: LACTULOSE 20Gm/30ML SOLN PO SCH ×4 (05:46→23:56)
[2022-09-18] MEDS: METOCLOPRAMIDE HCL 5MG/ml INJ 2ml VIAL IV SCH ×4 (05:46→23:56)
[2022-09-18] MEDS: ALBUTEROL SULF 2.5 MG/0.5ML(0.5%) NEB SOLN NEB SCH ×3 (05:49→18:35)
[2022-09-18] MEDS: IPRATROPIUM BROM 0.5 MG/2.5ML INH SOL NEB SCH ×3 (05:50→18:35)
[2022-09-18 09:48] LABS: Potassium 4.2 mmol/L (3.5-5.1); Sodium 138 mmol/L (136-145)
[2022-09-18 09:49] LABS: Alanine Aminotransferase 113 U/L (16-61); Alkaline Phosphatase 116 U/L (45-117); Anion Gap 2 (5-15); Aspartate Aminotransferase 71 U/L (15-37); BUN/Creatinine Ratio 113.9 (10.0-20.0); Bilirubin, Total 0.6 mg/dL (0.2-1.0); Blood Urea Nitrogen 41 mg/dL (7-18); Calcium 7.3 mg/dL (8.5-10.1); Carbon Dioxide 34 mmol/L (21-32); Chloride 102 mmol/L (98-107); GFR African American 309 mL/min; GFR Non-African American 255 mL/min; Glucose 134 mg/dL (74-106); Magnesium 2.6 mg/dL (1.6-2.6); Phosphorus 2.5 mg/dL (2.5-4.90); Total Protein 5.5 g/dL (6.4-8.2)
[2022-09-18] MEDS: FUROSEMIDE 40 MG/4 ML VIAL IV SCH (10:38)
[2022-09-18] MEDS: DexAMETHasone SOD PHOS 4 MG/1ML SDV INJ IV SCH (10:38)
[2022-09-18] MEDS: SODIUM CHLOR 0.9% PF (SALINE LOCK) 10ML VIAL/SYR IV SCH ×2 (10:39→21:41)
[2022-09-18] MEDS: ENOXAPARIN SOD 40 MG/0.4 ML SYRINGE SC SCH (10:39)
[2022-09-18] MEDS: PANTOPRAZOLE 40 MG/10 ML VIAL INJ IV SCH ×2 (10:39→21:41)
[2022-09-18] MEDS: HYDROCORTISONE ACET 25 MG RECTAL SUPP PR SCH ×2 (10:40→21:41)
[2022-09-18] MEDS: PHENYLEPHRINE INJ 80 MG in SODIUM CHL 0.9% 242 ML IV SCH (12:01)
[2022-09-18] MEDS ORDERED: INSULIN LANTUS (GLARGINE) 1 /0.01ml (100units/ml) SC ONE (12:36)
[2022-09-18] MEDS: NOREPINEPHRINE 8 MG/250ML KIT 250 ML IV SCH (13:49)
[2022-09-18] MEDS: fentaNYL Drip 2500mCg/250mlNS 250 ML IV SCH (17:36)
[2022-09-18] MEDS: TPN PER PHARMACY IV NR ×19 (19:57→20:00)
[2022-09-18] MEDS: SENNA 8.6 MG TAB PO SCH (21:41)
[2022-09-19] VITALS (104 sets, daily range): BP systolic 86–164; BP diastolic 45–95
[2022-09-19] MEDS: IPRATROPIUM BROM 0.5 MG/2.5ML INH SOL NEB SCH ×5 (00:06→23:57)
[2022-09-19] MEDS: ALBUTEROL SULF 2.5 MG/0.5ML(0.5%) NEB SOLN NEB SCH ×5 (00:06→23:57)
[2022-09-19] MEDS: MIDAZOLAM DRIP 50 mg/50mL 50 ML IV SCH ×3 (03:15→18:37)
[2022-09-19] MEDS: MEROPENEM 1GM IVPB 100 ML IV SCH ×3 (04:22→20:29)
[2022-09-19 04:44] LABS: Albumin 1.7 g/dL (3.4-5.0); Calcium 7.6 mg/dL (8.5-10.1); Magnesium 2.2 mg/dL (1.6-2.6); Potassium 3.7 mmol/L (3.5-5.1)
[2022-09-19 04:46] LABS: BUN/Creatinine Ratio 134.5 (10.0-20.0)
[2022-09-19 04:49] LABS: Basophils # (auto) 0 10 ^3/uL (0-0.2); Basophils % (auto) 0.1 % (0.0-2.0); Bilirubin, Total 0.6 mg/dL (0.2-1.0); Eosinophils # (auto) 0.1 10 ^3/uL (0-0.8); Eosinophils % (auto) 0.7 % (0.0-7.0); Hematocrit 27.8 % (41.0-53.0); Hemoglobin 9.1 g/dL (13.5-17.5); Lymphocytes % (auto) 8.3 % (10.0-50.0); Mean Corpuscular Hemoglobin 30.6 pg (28.0-32.0); Mean Corpuscular Hgb Conc. 32.8 g/dL (32.0-36.0); Mean Corpuscular Volume 93.5 fL (80.0-100.0); Monocytes # (auto) 0.7 10 ^3/uL (0-1.3); Monocytes % (auto) 5.5 % (0.0-12.0); Neutrophils # (auto) 10.3 10 ^3/uL (1.6-8.6); Neutrophils % (auto) 85.4 % (37.0-80.0); Nucleated Red Blood Cells % 0.3 %; Phosphorus 2.7 mg/dL (2.5-4.90); Red Blood Cells 2.97 10^6/uL (4.5-5.90); Red Cell Distribution Width 17.8 % (11.8-14.3); Total Protein 5.4 g/dL (6.4-8.2)
[2022-09-19] MEDS: METOCLOPRAMIDE HCL 5MG/ml INJ 2ml VIAL IV SCH (05:40)
[2022-09-19] MEDS: LACTULOSE 20Gm/30ML SOLN PO SCH (05:40)
[2022-09-19] MEDS: InsuLIN REG 1unit/0.01ml Soln (100units/ml) SC SCH ×3 (06:00→18:32)
[2022-09-19] MEDS: ACCU-CHEK COMFORT CURVE STRIP VI SCH ×3 (06:23→18:28)
[2022-09-19] MEDS: fentaNYL Drip 2500mCg/250mlNS 250 ML IV SCH ×2 (06:45→21:03)
[2022-09-19] MEDS ORDERED: PROPOFOL 100 ML IV ONE (08:57)
[2022-09-19] MEDS: PHENYLEPHRINE INJ 80 MG in SODIUM CHL 0.9% 242 ML IV SCH ×2 (09:15→22:57)
[2022-09-19] MEDS: PROPOFOL 100 ML IV SCH (09:16)
[2022-09-19] MEDS: FUROSEMIDE 40 MG/4 ML VIAL IV SCH (10:17)
[2022-09-19] MEDS: PANTOPRAZOLE 40 MG/10 ML VIAL INJ IV SCH ×2 (10:17→22:03)
[2022-09-19] MEDS: DexAMETHasone SOD PHOS 4 MG/1ML SDV INJ IV SCH (10:17)
[2022-09-19] MEDS: HYDROCORTISONE ACET 25 MG RECTAL SUPP PR SCH ×2 (10:18→22:03)
[2022-09-19] MEDS: ENOXAPARIN SOD 40 MG/0.4 ML SYRINGE SC SCH (10:18)
[2022-09-19] MEDS: SODIUM CHLOR 0.9% PF (SALINE LOCK) 10ML VIAL/SYR IV SCH ×2 (10:18→22:03)
[2022-09-19] MEDS: NOREPINEPHRINE 8 MG/250ML KIT 250 ML IV SCH (14:15)
[2022-09-19] MEDS ORDERED: Glucerna 1.2 Cal 1Liter BOTTLE GT SCH (16:00)
[2022-09-19] MEDS: TPN PER PHARMACY IV NR ×18 (19:59→20:00)
[2022-09-19] MEDS: SENNA 8.6 MG TAB PO SCH (22:03)
[2022-09-20] VITALS (102 sets, daily range): BP systolic 72–164; BP diastolic 39–98
[2022-09-20 04:13] LABS: Hematocrit 29.6 % (41.0-53.0); Hemoglobin 9.6 g/dL (13.5-17.5); Mean Corpuscular Hemoglobin 30.2 pg (28.0-32.0); Mean Corpuscular Hgb Conc. 32.5 g/dL (32.0-36.0); Mean Corpuscular Volume 92.9 fL (80.0-100.0); Red Blood Cells 3.19 10^6/uL (4.5-5.90); Red Cell Distribution Width 17.9 % (11.8-14.3); White Blood Cell 11.6 10^3/uL (4.4-10.8)
[2022-09-20 04:17] LABS: Calcium 7.6 mg/dL (8.5-10.1); Magnesium 2.3 mg/dL (1.6-2.6)
[2022-09-20 04:20] LABS: Basophils % (manual) 0 (0.0-2.0); Blast Cells 0; Eosinophils % (manual) 0 (0-7); Metamyelocytes % 0; Myelocytes % 0; Promyelocytes % 0; Reactive Lymphocytes 0
[2022-09-20 04:21] LABS: BUN/Creatinine Ratio 124.1 (10.0-20.0); Bilirubin, Total 0.6 mg/dL (0.2-1.0); Phosphorus 2.8 mg/dL (2.5-4.90); Total Protein 5.8 g/dL (6.4-8.2)
[2022-09-20] MEDS: InsuLIN REG 1unit/0.01ml Soln (100units/ml) SC SCH ×4 (05:51→17:26)
[2022-09-20] MEDS: ACCU-CHEK COMFORT CURVE STRIP VI SCH ×4 (05:51→17:26)
[2022-09-20] MEDS: ALBUTEROL SULF 2.5 MG/0.5ML(0.5%) NEB SOLN NEB SCH ×4 (06:30→23:51)
[2022-09-20] MEDS: IPRATROPIUM BROM 0.5 MG/2.5ML INH SOL NEB SCH ×4 (06:30→23:51)
[2022-09-20] MEDS: PROPOFOL 100 ML IV SCH ×2 (07:49→13:23)
[2022-09-20 08:12] LABS: Band Neutrophils % (manual) 2; Lymphocytes % (manual) 10 (10.0-50.0); Monocytes % (manual) 7 (0-12)
[2022-09-20] MEDS: DexAMETHasone SOD PHOS 4 MG/1ML SDV INJ IV SCH (08:36)
[2022-09-20] MEDS: PANTOPRAZOLE 40 MG/10 ML VIAL INJ IV SCH ×2 (08:36→21:44)
[2022-09-20] MEDS: FUROSEMIDE 40 MG/4 ML VIAL IV SCH (08:36)
[2022-09-20] MEDS: ENOXAPARIN SOD 40 MG/0.4 ML SYRINGE SC SCH (08:37)
[2022-09-20] MEDS: SODIUM CHLOR 0.9% PF (SALINE LOCK) 10ML VIAL/SYR IV SCH ×2 (08:37→21:45)
[2022-09-20] MEDS: HYDROCORTISONE ACET 25 MG RECTAL SUPP PR SCH ×2 (08:37→21:47)
[2022-09-20] MEDS: MIDAZOLAM DRIP 50 mg/50mL 50 ML IV SCH ×2 (14:14→21:21)
[2022-09-20] MEDS: NOREPINEPHRINE 8 MG/250ML KIT 250 ML IV SCH (14:15)
[2022-09-20] MEDS: fentaNYL Drip 2500mCg/250mlNS 250 ML IV SCH (14:23)
[2022-09-20] MEDS: PHENYLEPHRINE INJ 80 MG in SODIUM CHL 0.9% 242 ML IV SCH ×2 (14:31→15:45)
[2022-09-20] MEDS: TPN PER PHARMACY IV NR ×9 (19:51)
[2022-09-20] MEDS ORDERED: TPN PER PHARMACY IV NR ×9 (20:00)
[2022-09-21] VITALS (100 sets, daily range): BP systolic 69–195; BP diastolic 39–114
[2022-09-21] MEDS: ACCU-CHEK COMFORT CURVE STRIP VI SCH ×4 (00:06→17:29)
[2022-09-21 04:25] LABS: Basophils # (auto) 0 10 ^3/uL (0-0.2); Basophils % (auto) 0.1 % (0.0-2.0); Eosinophils # (auto) 0.2 10 ^3/uL (0-0.8); Eosinophils % (auto) 1.7 % (0.0-7.0); Hematocrit 29.1 % (41.0-53.0); Hemoglobin 9.7 g/dL (13.5-17.5); Lymphocytes # (auto) 1.2 10 ^3/uL (0.4-5.4); Lymphocytes % (auto) 11.2 % (10.0-50.0); Mean Corpuscular Hemoglobin 31.1 pg (28.0-32.0); Mean Corpuscular Hgb Conc. 33.4 g/dL (32.0-36.0); Mean Corpuscular Volume 93.1 fL (80.0-100.0); Monocytes # (auto) 0.6 10 ^3/uL (0-1.3); Monocytes % (auto) 5.6 % (0.0-12.0); Neutrophils # (auto) 8.6 10 ^3/uL (1.6-8.6); Neutrophils % (auto) 81.4 % (37.0-80.0); Nucleated Red Blood Cells % 0.1 %; Red Blood Cells 3.13 10^6/uL (4.5-5.90); Red Cell Distribution Width 17.5 % (11.8-14.3); White Blood Cell 10.6 10^3/uL (4.4-10.8)
[2022-09-21] MEDS: MIDAZOLAM DRIP 50 mg/50mL 50 ML IV SCH ×3 (04:34→22:43)
[2022-09-21 04:40] LABS: Albumin 1.8 g/dL (3.4-5.0); Calcium 7.6 mg/dL (8.5-10.1); Magnesium 2.2 mg/dL (1.6-2.6)
[2022-09-21 04:46] LABS: Bilirubin, Total 0.8 mg/dL (0.2-1.0); Phosphorus 2.9 mg/dL (2.5-4.90); Total Protein 5.6 g/dL (6.4-8.2)
[2022-09-21] MEDS: InsuLIN REG 1unit/0.01ml Soln (100units/ml) SC SCH ×4 (06:00→17:29)
[2022-09-21] MEDS: fentaNYL Drip 2500mCg/250mlNS 250 ML IV SCH (06:14)
[2022-09-21] MEDS: IPRATROPIUM BROM 0.5 MG/2.5ML INH SOL NEB SCH ×3 (06:46→18:48)
[2022-09-21] MEDS: ALBUTEROL SULF 2.5 MG/0.5ML(0.5%) NEB SOLN NEB SCH ×3 (06:46→18:48)
[2022-09-21] MEDS: SODIUM CHLOR 0.9% PF (SALINE LOCK) 10ML VIAL/SYR IV SCH ×2 (08:17→21:39)
[2022-09-21] MEDS: PANTOPRAZOLE 40 MG/10 ML VIAL INJ IV SCH ×2 (08:17→21:38)
[2022-09-21] MEDS: HYDROCORTISONE ACET 25 MG RECTAL SUPP PR SCH ×2 (08:18→21:39)
[2022-09-21] MEDS: ENOXAPARIN SOD 40 MG/0.4 ML SYRINGE SC SCH (08:18)
[2022-09-21] MEDS: DexAMETHasone SOD PHOS 4 MG/1ML SDV INJ IV SCH (08:18)
[2022-09-21] MEDS: FUROSEMIDE 40 MG/4 ML VIAL IV SCH (09:28)
[2022-09-21] MEDS: PROPOFOL 100 ML IV SCH (09:29)
[2022-09-21] MEDS: NOREPINEPHRINE 8 MG/250ML KIT 250 ML IV SCH (14:15)
[2022-09-21] MEDS: PHENYLEPHRINE INJ 80 MG in SODIUM CHL 0.9% 242 ML IV SCH (16:29)
[2022-09-21] MEDS ORDERED: TPN PER PHARMACY IV NR ×9 (20:00)
[2022-09-22] VITALS (95 sets, daily range): BP systolic 74–168; BP diastolic 37–107
[2022-09-22] MEDS: ALBUTEROL SULF 2.5 MG/0.5ML(0.5%) NEB SOLN NEB SCH ×4 (00:38→18:59)
[2022-09-22] MEDS: IPRATROPIUM BROM 0.5 MG/2.5ML INH SOL NEB SCH ×4 (00:39→18:59)
[2022-09-22] MEDS: fentaNYL Drip 2500mCg/250mlNS 250 ML IV SCH ×2 (01:13→20:23)
[2022-09-22] MEDS: PROPOFOL 100 ML IV SCH ×2 (02:58→16:43)
[2022-09-22] MEDS: PHENYLEPHRINE INJ 80 MG in SODIUM CHL 0.9% 242 ML IV SCH ×2 (03:34→12:01)
[2022-09-22 04:21] LABS: Potassium 3.7 mmol/L (3.5-5.1)
[2022-09-22 04:28] LABS: Albumin 1.9 g/dL (3.4-5.0); BUN/Creatinine Ratio 105.7 (10.0-20.0); Bilirubin, Total 0.5 mg/dL (0.2-1.0); Calcium 7.5 mg/dL (8.5-10.1); Magnesium 2.3 mg/dL (1.6-2.6); Phosphorus 3.5 mg/dL (2.5-4.90); Total Protein 5.6 g/dL (6.4-8.2)
[2022-09-22] MEDS: InsuLIN REG 1unit/0.01ml Soln (100units/ml) SC SCH ×5 (06:00→23:35)
[2022-09-22] MEDS: ACCU-CHEK COMFORT CURVE STRIP VI SCH ×5 (06:00→23:35)
[2022-09-22] MEDS: MIDAZOLAM DRIP 50 mg/50mL 50 ML IV SCH (07:51)
[2022-09-22] MEDS: PANTOPRAZOLE 40 MG/10 ML VIAL INJ IV SCH ×2 (09:39→21:35)
[2022-09-22] MEDS: HYDROCORTISONE ACET 25 MG RECTAL SUPP PR SCH ×2 (09:39→21:46)
[2022-09-22] MEDS: SODIUM CHLOR 0.9% PF (SALINE LOCK) 10ML VIAL/SYR IV SCH ×2 (09:39→21:35)
[2022-09-22] MEDS: FUROSEMIDE 40 MG/4 ML VIAL IV SCH (09:39)
[2022-09-22] MEDS: ENOXAPARIN SOD 40 MG/0.4 ML SYRINGE SC SCH (09:39)
[2022-09-22] MEDS: NOREPINEPHRINE 8 MG/250ML KIT 250 ML IV SCH (14:15)
[2022-09-22] MEDS ORDERED: TPN PER PHARMACY IV NR ×10 (20:00)
[2022-09-23] VITALS (87 sets, daily range): BP systolic 61–152; BP diastolic 36–91
[2022-09-23] MEDS: IPRATROPIUM BROM 0.5 MG/2.5ML INH SOL NEB SCH ×4 (00:07→18:33)
[2022-09-23] MEDS: ALBUTEROL SULF 2.5 MG/0.5ML(0.5%) NEB SOLN NEB SCH ×4 (00:07→18:33)
[2022-09-23 03:38] LABS: Hemoglobin 11.1 g/dL (13.5-17.5); Mean Corpuscular Hemoglobin 30.5 pg (28.0-32.0); Mean Corpuscular Hgb Conc. 32.7 g/dL (32.0-36.0); Mean Corpuscular Volume 93.4 fL (80.0-100.0); Red Blood Cells 3.64 10^6/uL (4.5-5.90); Red Cell Distribution Width 17.9 % (11.8-14.3); White Blood Cell 8.9 10^3/uL (4.4-10.8)
[2022-09-23 03:46] LABS: Albumin 2.1 g/dL (3.4-5.0); Calcium 7.8 mg/dL (8.5-10.1); Magnesium 2.1 mg/dL (1.6-2.6); Potassium 3.5 mmol/L (3.5-5.1)
[2022-09-23 03:47] LABS: Basophils % (manual) 0 (0.0-2.0); Blast Cells 0; Eosinophils % (manual) 0 (0-7); Metamyelocytes % 0; Myelocytes % 0; Promyelocytes % 0; Reactive Lymphocytes 0
[2022-09-23 03:51] LABS: BUN/Creatinine Ratio 84.2 (10.0-20.0); Bilirubin, Total 0.6 mg/dL (0.2-1.0); Phosphorus 3.3 mg/dL (2.5-4.90); Total Protein 6.2 g/dL (6.4-8.2)
[2022-09-23] MEDS: MIDAZOLAM DRIP 50 mg/50mL 50 ML IV SCH ×3 (04:15→17:44)
[2022-09-23] MEDS: PROPOFOL 100 ML IV SCH ×3 (05:27→17:43)
[2022-09-23] MEDS: ACCU-CHEK COMFORT CURVE STRIP VI SCH ×4 (05:38→23:53)
[2022-09-23] MEDS: InsuLIN REG 1unit/0.01ml Soln (100units/ml) SC SCH ×4 (05:38→23:53)
[2022-09-23 06:43] LABS: Band Neutrophils % (manual) 17; Lymphocytes % (manual) 9 (10.0-50.0); Monocytes % (manual) 3 (0-12)
[2022-09-23] MEDS: fentaNYL Drip 2500mCg/250mlNS 250 ML IV SCH ×2 (08:34→23:57)
[2022-09-23] MEDS: ENOXAPARIN SOD 40 MG/0.4 ML SYRINGE SC SCH (11:15)
[2022-09-23] MEDS: PANTOPRAZOLE 40 MG/10 ML VIAL INJ IV SCH ×2 (11:15→22:05)
[2022-09-23] MEDS: SODIUM CHLOR 0.9% PF (SALINE LOCK) 10ML VIAL/SYR IV SCH ×2 (11:15→22:05)
[2022-09-23] MEDS: FUROSEMIDE 40 MG/4 ML VIAL IV SCH (11:15)
[2022-09-23] MEDS: HYDROCORTISONE ACET 25 MG RECTAL SUPP PR SCH ×2 (11:30→22:14)
[2022-09-23] MEDS: NOREPINEPHRINE 8 MG/250ML KIT 250 ML IV SCH (15:15)
[2022-09-23] MEDS: CEFEPIME 1GM/ 50ML 50 ML IV SCH ×2 (15:46→22:05)
[2022-09-23] MEDS: PHENYLEPHRINE INJ 80 MG in SODIUM CHL 0.9% 242 ML IV SCH (15:47)
[2022-09-23] MEDS ORDERED: Glucerna 1.2 Cal 1Liter BOTTLE GT SCH (19:45)
[2022-09-23] MEDS ORDERED: TPN PER PHARMACY IV NR ×10 (20:00)
[2022-09-23] MEDS ORDERED: PHENYLEPHRINE HCL 10 MG/ML VL ONE ×2 (22:20→22:23)
[2022-09-23] MEDS ORDERED: PHENYLEPHRINE IV 250 ML IV ONE (22:20)
[2022-09-24] VITALS (104 sets, daily range): BP systolic 68–138; BP diastolic 35–80
[2022-09-24] MEDS: ALBUTEROL SULF 2.5 MG/0.5ML(0.5%) NEB SOLN NEB SCH ×4 (00:01→18:44)
[2022-09-24] MEDS: IPRATROPIUM BROM 0.5 MG/2.5ML INH SOL NEB SCH ×4 (00:01→18:44)
[2022-09-24] MEDS: PHENYLEPHRINE INJ 80 MG in SODIUM CHL 0.9% 242 ML IV SCH (00:03)
[2022-09-24] MEDS: MIDAZOLAM DRIP 50 mg/50mL 50 ML IV SCH ×4 (02:15→20:12)
[2022-09-24 04:24] LABS: Potassium 3.7 mmol/L (3.5-5.1)
[2022-09-24 04:30] LABS: Albumin 1.8 g/dL (3.4-5.0); BUN/Creatinine Ratio 134.4 (10.0-20.0); Bilirubin, Total 0.6 mg/dL (0.2-1.0); Calcium 7.6 mg/dL (8.5-10.1); Magnesium 2.2 mg/dL (1.6-2.6); Phosphorus 4.1 mg/dL (2.5-4.90); Total Protein 5.6 g/dL (6.4-8.2)
[2022-09-24] MEDS: PROPOFOL 100 ML IV SCH ×2 (05:17→11:00)
[2022-09-24] MEDS: ACCU-CHEK COMFORT CURVE STRIP VI SCH ×4 (05:20→23:46)
[2022-09-24] MEDS: CEFEPIME 1GM/ 50ML 50 ML IV SCH ×3 (05:20→22:09)
[2022-09-24] MEDS: InsuLIN REG 1unit/0.01ml Soln (100units/ml) SC SCH ×3 (05:28→23:46)
[2022-09-24] MEDS: PANTOPRAZOLE 40 MG/10 ML VIAL INJ IV SCH ×2 (12:37→22:09)
[2022-09-24] MEDS: FUROSEMIDE 40 MG/4 ML VIAL IV SCH ×3 (12:37→22:09)
[2022-09-24] MEDS: ENOXAPARIN SOD 40 MG/0.4 ML SYRINGE SC SCH (12:37)
[2022-09-24] MEDS: DOCUSATE ORAL LIQUID 100 MG/10 ML UD GT SCH (12:37)
[2022-09-24] MEDS: SODIUM CHLOR 0.9% PF (SALINE LOCK) 10ML VIAL/SYR IV SCH ×2 (12:38→22:09)
[2022-09-24] MEDS ORDERED: VANCOMYCIN PER PHARMACY 0 MG IV SCH (13:45)
[2022-09-24] MEDS: HYDROCORTISONE ACET 25 MG RECTAL SUPP PR SCH ×2 (13:55→22:26)
[2022-09-24] MEDS ORDERED: ROCURONIUM 10MG/ML 10ML VIAL IV ONE (14:35)
[2022-09-24] MEDS: ROCURONIUM 10MG/ML 10ML VIAL IV PRN (14:53)
[2022-09-24] MEDS: NOREPINEPHRINE 8 MG/250ML KIT 250 ML IV SCH (14:56)
[2022-09-24] MEDS: VANCOMYCIN 750mg/250ml 250 ML IV SCH (15:30)
[2022-09-24] MEDS ORDERED: TPN PER PHARMACY IV NR ×10 (20:00)
[2022-09-24] MEDS: fentaNYL Drip 2500mCg/250mlNS 250 ML IV SCH (22:29)
[2022-09-25] VITALS (106 sets, daily range): BP systolic 79–132; BP diastolic 45–77
[2022-09-25] MEDS: ALBUTEROL SULF 2.5 MG/0.5ML(0.5%) NEB SOLN NEB SCH ×3 (00:05→11:37)
[2022-09-25] MEDS: IPRATROPIUM BROM 0.5 MG/2.5ML INH SOL NEB SCH ×3 (00:05→11:37)
[2022-09-25] MEDS: MIDAZOLAM DRIP 50 mg/50mL 50 ML IV SCH ×4 (01:23→18:03)
[2022-09-25] MEDS: VANCOMYCIN 750mg/250ml 250 ML IV SCH ×2 (03:09→15:54)
[2022-09-25 04:36] LABS: Basophils # (auto) 0 10 ^3/uL (0-0.2); Basophils % (auto) 0.1 % (0.0-2.0); Eosinophils # (auto) 0.3 10 ^3/uL (0-0.8); Eosinophils % (auto) 2.2 % (0.0-7.0); Hematocrit 30.7 % (41.0-53.0); Hemoglobin 9.9 g/dL (13.5-17.5); Lymphocytes # (auto) 0.8 10 ^3/uL (0.4-5.4); Lymphocytes % (auto) 6.8 % (10.0-50.0); Mean Corpuscular Hemoglobin 30.5 pg (28.0-32.0); Mean Corpuscular Hgb Conc. 32.3 g/dL (32.0-36.0); Mean Corpuscular Volume 94.4 fL (80.0-100.0); Monocytes # (auto) 0.5 10 ^3/uL (0-1.3); Monocytes % (auto) 4.3 % (0.0-12.0); Neutrophils # (auto) 10.1 10 ^3/uL (1.6-8.6); Neutrophils % (auto) 86.6 % (37.0-80.0); Red Blood Cells 3.25 10^6/uL (4.5-5.90); Red Cell Distribution Width 17.5 % (11.8-14.3); White Blood Cell 11.7 10^3/uL (4.4-10.8)
[2022-09-25] MEDS: PHENYLEPHRINE INJ 80 MG in SODIUM CHL 0.9% 242 ML IV SCH ×3 (04:44→18:03)
[2022-09-25 04:47] LABS: Calcium 7.7 mg/dL (8.5-10.1); Potassium 3.9 mmol/L (3.5-5.1)
[2022-09-25 04:53] LABS: Albumin 1.7 g/dL (3.4-5.0); Bilirubin, Total 0.7 mg/dL (0.2-1.0); Magnesium 2.2 mg/dL (1.6-2.6); Phosphorus 5.5 mg/dL (2.5-4.90); Total Protein 6.1 g/dL (6.4-8.2)
[2022-09-25] MEDS: InsuLIN REG 1unit/0.01ml Soln (100units/ml) SC SCH ×4 (06:00→23:52)
[2022-09-25] MEDS: ACCU-CHEK COMFORT CURVE STRIP VI SCH ×4 (06:23→23:48)
[2022-09-25] MEDS: fentaNYL Drip 2500mCg/250mlNS 250 ML IV SCH ×3 (06:25→23:57)
[2022-09-25] MEDS: CEFEPIME 1GM/ 50ML 50 ML IV SCH ×3 (06:25→21:34)
[2022-09-25] MEDS: DOCUSATE ORAL LIQUID 100 MG/10 ML UD GT SCH (09:27)
[2022-09-25] MEDS: HYDROCORTISONE ACET 25 MG RECTAL SUPP PR SCH ×2 (09:27→21:38)
[2022-09-25] MEDS: FUROSEMIDE 40 MG/4 ML VIAL IV SCH ×2 (09:27→21:32)
[2022-09-25] MEDS: ENOXAPARIN SOD 40 MG/0.4 ML SYRINGE SC SCH (09:28)
[2022-09-25] MEDS: SODIUM CHLOR 0.9% PF (SALINE LOCK) 10ML VIAL/SYR IV SCH ×2 (09:28→21:33)
[2022-09-25] MEDS: PANTOPRAZOLE 40 MG/10 ML VIAL INJ IV SCH ×2 (09:30→21:32)
[2022-09-25] MEDS ORDERED: AMINO ACID INFUSION IN D10W 1,000 ML IV NR (10:00)
[2022-09-25] MEDS ORDERED: TPN PER PHARMACY IV NR ×10 (10:00)
[2022-09-25 10:43] LABS: INR 1.29 (0.9-1.15); Partial Thromboplastin Time 32.8 sec (24.6-33.4)
[2022-09-25] MEDS: NOREPINEPHRINE 8 MG/250ML KIT 250 ML IV SCH (14:15)
[2022-09-25] MEDS ORDERED: TPN*HIGH CONC* PER PHARMACY IV NR ×8 (20:00)
[2022-09-26] VITALS (99 sets, daily range): BP systolic 76–158; BP diastolic 46–94
[2022-09-26] MEDS: PHENYLEPHRINE INJ 80 MG in SODIUM CHL 0.9% 242 ML IV SCH ×4 (01:26→23:00)
[2022-09-26] MEDS: MIDAZOLAM DRIP 50 mg/50mL 50 ML IV SCH ×4 (01:55→22:10)
[2022-09-26 04:20] LABS: Basophils # (auto) 0 10 ^3/uL (0-0.2); Basophils % (auto) 0.2 % (0.0-2.0); Eosinophils # (auto) 0.3 10 ^3/uL (0-0.8); Eosinophils % (auto) 3.3 % (0.0-7.0); Hematocrit 27.9 % (41.0-53.0); Hemoglobin 9.3 g/dL (13.5-17.5); Lymphocytes % (auto) 11.5 % (10.0-50.0); Mean Corpuscular Hemoglobin 31.4 pg (28.0-32.0); Mean Corpuscular Hgb Conc. 33.3 g/dL (32.0-36.0); Mean Corpuscular Volume 94.1 fL (80.0-100.0); Monocytes # (auto) 0.5 10 ^3/uL (0-1.3); Monocytes % (auto) 5.5 % (0.0-12.0); Neutrophils # (auto) 6.7 10 ^3/uL (1.6-8.6); Neutrophils % (auto) 79.5 % (37.0-80.0); Nucleated Red Blood Cells % 0.1 %; Red Blood Cells 2.97 10^6/uL (4.5-5.90); Red Cell Distribution Width 17.6 % (11.8-14.3); White Blood Cell 8.5 10^3/uL (4.4-10.8)
[2022-09-26] MEDS: VANCOMYCIN 750mg/250ml 250 ML IV SCH (04:55)
[2022-09-26 04:56] LABS: Albumin 1.5 g/dL (3.4-5.0); BUN/Creatinine Ratio 83.6 (10.0-20.0); Calcium 7.8 mg/dL (8.5-10.1)
[2022-09-26 04:59] LABS: Bilirubin, Total 0.4 mg/dL (0.2-1.0); Phosphorus 2.5 mg/dL (2.5-4.90); Total Protein 5.9 g/dL (6.4-8.2)
[2022-09-26 05:14] LABS: Potassium 2.9 mmol/L (3.5-5.1)
[2022-09-26] MEDS: ACCU-CHEK COMFORT CURVE STRIP VI SCH ×3 (05:47→17:30)
[2022-09-26] MEDS: CEFEPIME 1GM/ 50ML 50 ML IV SCH ×3 (05:59→22:17)
[2022-09-26] MEDS: InsuLIN REG 1unit/0.01ml Soln (100units/ml) SC SCH ×3 (06:02→17:33)
[2022-09-26] MEDS: POTASSIUM CHL 20MEQ/100ML 100 ML IV SCH ×2 (06:20→08:51)
[2022-09-26] MEDS: NOREPINEPHRINE 8 MG/250ML KIT 250 ML IV SCH (06:25)
[2022-09-26] MEDS ORDERED: VANCOMYCIN 750mg/250ml 250 ML IV SCH ×2 (07:00→17:00)
[2022-09-26] MEDS: fentaNYL Drip 2500mCg/250mlNS 250 ML IV SCH ×2 (08:50→19:09)
[2022-09-26] MEDS: PROPOFOL 100 ML IV SCH (09:00)
[2022-09-26] MEDS: FUROSEMIDE 40 MG/4 ML VIAL IV SCH ×2 (09:22→22:18)
[2022-09-26] MEDS: DOCUSATE ORAL LIQUID 100 MG/10 ML UD GT SCH (09:22)
[2022-09-26] MEDS: HYDROCORTISONE ACET 25 MG RECTAL SUPP PR SCH ×2 (09:23→22:22)
[2022-09-26] MEDS: PANTOPRAZOLE 40 MG/10 ML VIAL INJ IV SCH ×2 (09:23→22:17)
[2022-09-26] MEDS: ENOXAPARIN SOD 40 MG/0.4 ML SYRINGE SC SCH (09:23)
[2022-09-26] MEDS: SODIUM CHLOR 0.9% PF (SALINE LOCK) 10ML VIAL/SYR IV SCH ×2 (09:24→22:22)
[2022-09-26] MEDS: ROCURONIUM 10MG/ML 10ML VIAL IV PRN (10:18)
[2022-09-26] MEDS ORDERED: LIDOCAINE 1%-Mpf/Epinephrine 1:200,000 ONE (10:34)
[2022-09-26] MEDS ORDERED: BUPIVACAINE 0.25% INJ 50ML VIAL ONE (10:35)
[2022-09-26] MEDS ORDERED: DexAMETHasone SOD PHOS 10MG/1ML VIAL INJ IV ONE (12:30)
[2022-09-26] MEDS ORDERED: PHENYLEPHRINE HCL 10 MG/ML VL IV ONE (12:30)
[2022-09-26] MEDS ORDERED: MIDAZOLAM HCL 2MG/2ML 2ml VIAL (1mg/ml) ONE (12:57)
[2022-09-26] MEDS ORDERED: fentaNYL CITRATE 100 MCG/2 ML VL ONE (12:57)
[2022-09-26] MEDS ORDERED: HYDROmorphone HCL 2 MG/ML VL/or syr ONE (12:57)
[2022-09-26] MEDS ORDERED: LIDOCAINE 1% HCL (LOCAL ANESTH.) INJ 20ML MDV ONE (13:57)
[2022-09-26] MEDS: VANCOMYCIN 1GM/250ML 250 ML IV SCH (17:33)
[2022-09-26] MEDS ORDERED: TPN*HIGH CONC* PER PHARMACY IV NR ×10 (20:00)
[2022-09-27] VITALS (108 sets, daily range): BP systolic 82–178; BP diastolic 52–108
[2022-09-27] MEDS: InsuLIN REG 1unit/0.01ml Soln (100units/ml) SC SCH ×5 (00:26→23:46)
[2022-09-27] MEDS: ACCU-CHEK COMFORT CURVE STRIP VI SCH ×5 (00:26→23:44)
[2022-09-27] MEDS: MIDAZOLAM DRIP 50 mg/50mL 50 ML IV SCH ×8 (02:22→23:58)
[2022-09-27] MEDS: fentaNYL Drip 2500mCg/250mlNS 250 ML IV SCH ×3 (04:18→21:23)
[2022-09-27 04:42] LABS: Basophils # (auto) 0 10 ^3/uL (0-0.2); Basophils % (auto) 0.1 % (0.0-2.0); Eosinophils # (auto) 0 10 ^3/uL (0-0.8); Eosinophils % (auto) 0.1 % (0.0-7.0); Hematocrit 26.2 % (41.0-53.0); Hemoglobin 8.8 g/dL (13.5-17.5); Lymphocytes # (auto) 0.5 10 ^3/uL (0.4-5.4); Lymphocytes % (auto) 5.4 % (10.0-50.0); Mean Corpuscular Hemoglobin 31.5 pg (28.0-32.0); Mean Corpuscular Hgb Conc. 33.7 g/dL (32.0-36.0); Mean Corpuscular Volume 93.5 fL (80.0-100.0); Monocytes # (auto) 0.2 10 ^3/uL (0-1.3); Monocytes % (auto) 2.7 % (0.0-12.0); Neutrophils % (auto) 91.7 % (37.0-80.0); Nucleated Red Blood Cells % 0.1 %; Red Cell Distribution Width 17.7 % (11.8-14.3); White Blood Cell 8.8 10^3/uL (4.4-10.8)
[2022-09-27 04:52] LABS: Albumin 1.6 g/dL (3.4-5.0); Calcium 7.9 mg/dL (8.5-10.1); Magnesium 2.1 mg/dL (1.6-2.6); Potassium 3.4 mmol/L (3.5-5.1)
[2022-09-27 04:56] LABS: BUN/Creatinine Ratio 76.8 (10.0-20.0); Bilirubin, Total 0.4 mg/dL (0.2-1.0); Phosphorus 1.5 mg/dL (2.5-4.90); Total Protein 5.9 g/dL (6.4-8.2)
[2022-09-27] MEDS: VANCOMYCIN 1GM/250ML 250 ML IV SCH (05:26)
[2022-09-27] MEDS: CEFEPIME 1GM/ 50ML 50 ML IV SCH ×3 (05:46→22:31)
[2022-09-27] MEDS: PHENYLEPHRINE INJ 80 MG in SODIUM CHL 0.9% 242 ML IV SCH (09:43)
[2022-09-27] MEDS: FUROSEMIDE 40 MG/4 ML VIAL IV SCH ×2 (10:14→22:27)
[2022-09-27] MEDS: PANTOPRAZOLE 40 MG/10 ML VIAL INJ IV SCH ×2 (10:15→22:28)
[2022-09-27] MEDS: SODIUM CHLOR 0.9% PF (SALINE LOCK) 10ML VIAL/SYR IV SCH ×2 (10:16→22:28)
[2022-09-27] MEDS: ENOXAPARIN SOD 40 MG/0.4 ML SYRINGE SC SCH (10:16)
[2022-09-27] MEDS: DOCUSATE ORAL LIQUID 100 MG/10 ML UD GT SCH (10:17)
[2022-09-27] MEDS: HYDROCORTISONE ACET 25 MG RECTAL SUPP PR SCH ×2 (10:20→22:35)
[2022-09-27] MEDS ORDERED: POTASSIUM PHOSPHATE 44 MEQ in D5W 5% 250 ML IV ONE (11:00)
[2022-09-27] MEDS: ROCURONIUM 10MG/ML 10ML VIAL IV PRN (12:07)
[2022-09-27] MEDS: NOREPINEPHRINE 8 MG/250ML KIT 250 ML IV SCH (14:15)
[2022-09-27] MEDS ORDERED: ROCURONIUM 10MG/ML 10ML VIAL IV ONE (14:30)
[2022-09-27] MEDS: PROPOFOL 100 ML IV SCH (14:44)
[2022-09-27] MEDS ORDERED: TPN*HIGH CONC* PER PHARMACY IV NR ×10 (20:00)
[2022-09-28] VITALS (105 sets, daily range): BP systolic 79–134; BP diastolic 48–78
[2022-09-28] MEDS: MIDAZOLAM DRIP 50 mg/50mL 50 ML IV SCH ×6 (03:38→22:56)
[2022-09-28 04:33] LABS: Basophils # (auto) 0 10 ^3/uL (0-0.2); Basophils % (auto) 0.3 % (0.0-2.0); Eosinophils # (auto) 0.1 10 ^3/uL (0-0.8); Eosinophils % (auto) 1.2 % (0.0-7.0); Hematocrit 26.5 % (41.0-53.0); Hemoglobin 8.7 g/dL (13.5-17.5); Lymphocytes # (auto) 0.7 10 ^3/uL (0.4-5.4); Lymphocytes % (auto) 6.1 % (10.0-50.0); Mean Corpuscular Hemoglobin 30.6 pg (28.0-32.0); Mean Corpuscular Hgb Conc. 32.8 g/dL (32.0-36.0); Mean Corpuscular Volume 93.3 fL (80.0-100.0); Monocytes # (auto) 0.7 10 ^3/uL (0-1.3); Neutrophils # (auto) 9.5 10 ^3/uL (1.6-8.6); Neutrophils % (auto) 86.4 % (37.0-80.0); Red Blood Cells 2.84 10^6/uL (4.5-5.90); Red Cell Distribution Width 16.8 % (11.8-14.3)
[2022-09-28 04:54] LABS: Albumin 1.7 g/dL (3.4-5.0); Calcium 7.9 mg/dL (8.5-10.1); Magnesium 1.8 mg/dL (1.6-2.6); Potassium 3.1 mmol/L (3.5-5.1)
[2022-09-28 04:56] LABS: BUN/Creatinine Ratio 82.8 (10.0-20.0); Bilirubin, Total 0.3 mg/dL (0.2-1.0); Total Protein 6.1 g/dL (6.4-8.2)
[2022-09-28] MEDS: CEFEPIME 1GM/ 50ML 50 ML IV SCH ×3 (05:52→21:34)
[2022-09-28] MEDS: fentaNYL Drip 2500mCg/250mlNS 250 ML IV SCH ×3 (05:54→23:03)
[2022-09-28] MEDS: InsuLIN REG 1unit/0.01ml Soln (100units/ml) SC SCH ×3 (06:00→17:57)
[2022-09-28] MEDS: ACCU-CHEK COMFORT CURVE STRIP VI SCH ×3 (06:01→17:57)
[2022-09-28] MEDS: POTASSIUM CHL 20MEQ/100ML 100 ML IV SCH ×4 (07:06→13:24)
[2022-09-28] MEDS: PROPOFOL 100 ML IV SCH ×2 (07:30→17:56)
[2022-09-28] MEDS: DOCUSATE ORAL LIQUID 100 MG/10 ML UD GT SCH (09:41)
[2022-09-28] MEDS: ENOXAPARIN SOD 40 MG/0.4 ML SYRINGE SC SCH (09:41)
[2022-09-28] MEDS: FUROSEMIDE 40 MG/4 ML VIAL IV SCH ×2 (09:42→21:34)
[2022-09-28] MEDS: SODIUM CHLOR 0.9% PF (SALINE LOCK) 10ML VIAL/SYR IV SCH ×2 (09:42→21:34)
[2022-09-28] MEDS: PANTOPRAZOLE 40 MG/10 ML VIAL INJ IV SCH ×2 (09:42→21:34)
[2022-09-28] MEDS: PHENYLEPHRINE INJ 80 MG in SODIUM CHL 0.9% 242 ML IV SCH (09:44)
[2022-09-28] MEDS: HYDROCORTISONE ACET 25 MG RECTAL SUPP PR SCH ×2 (11:00→22:25)
[2022-09-28] MEDS: NOREPINEPHRINE 8 MG/250ML KIT 250 ML IV SCH (14:15)
[2022-09-28] MEDS: TPN*HIGH CONC* PER PHARMACY IV NR ×8 (19:49)
[2022-09-28] MEDS ORDERED: TPN PER PHARMACY IV NR ×8 (20:00)
[2022-09-29] VITALS (102 sets, daily range): BP systolic 62–169; BP diastolic 35–75
[2022-09-29] MEDS: ACCU-CHEK COMFORT CURVE STRIP VI SCH ×5 (00:01→23:40)
[2022-09-29] MEDS: PHENYLEPHRINE INJ 80 MG in SODIUM CHL 0.9% 242 ML IV SCH ×3 (01:41→22:54)
[2022-09-29] MEDS: MIDAZOLAM DRIP 50 mg/50mL 50 ML IV SCH ×6 (02:33→21:28)
[2022-09-29] MEDS: PROPOFOL 100 ML IV SCH ×4 (02:55→23:35)
[2022-09-29 04:05] LABS: Albumin 1.8 g/dL (3.4-5.0); Calcium 8.1 mg/dL (8.5-10.1); Magnesium 1.8 mg/dL (1.6-2.6); Potassium 3.3 mmol/L (3.5-5.1)
[2022-09-29 04:09] LABS: BUN/Creatinine Ratio 89.1 (10.0-20.0); Bilirubin, Total 0.4 mg/dL (0.2-1.0); Phosphorus 3.4 mg/dL (2.5-4.90); Total Protein 6.3 g/dL (6.4-8.2)
[2022-09-29 04:52] LABS: Hemoglobin 8.9 g/dL (13.5-17.5); Mean Corpuscular Hemoglobin 30.6 pg (28.0-32.0); Mean Corpuscular Hgb Conc. 32.8 g/dL (32.0-36.0); Mean Corpuscular Volume 93.2 fL (80.0-100.0); Red Blood Cells 2.89 10^6/uL (4.5-5.90); Red Cell Distribution Width 17.3 % (11.8-14.3); White Blood Cell 8.8 10^3/uL (4.4-10.8)
[2022-09-29 04:55] LABS: Basophils % (manual) 0 (0.0-2.0); Blast Cells 0; Metamyelocytes % 0; Myelocytes % 0; Promyelocytes % 0; Reactive Lymphocytes 0
[2022-09-29] MEDS: CEFEPIME 1GM/ 50ML 50 ML IV SCH ×3 (05:46→21:27)
[2022-09-29] MEDS: InsuLIN REG 1unit/0.01ml Soln (100units/ml) SC SCH ×5 (05:49→23:41)
[2022-09-29] MEDS: fentaNYL Drip 2500mCg/250mlNS 250 ML IV SCH ×2 (08:07→16:10)
[2022-09-29] MEDS ORDERED: POTASSIUM CHL 20MEQ/100ML 100 ML IV ONE (09:15)
[2022-09-29 09:25] LABS: Band Neutrophils % (manual) 7; Eosinophils % (manual) 5 (0-7); Lymphocytes % (manual) 10 (10.0-50.0); Monocytes % (manual) 8 (0-12)
[2022-09-29] MEDS: DOCUSATE ORAL LIQUID 100 MG/10 ML UD GT SCH (10:23)
[2022-09-29] MEDS: HYDROCORTISONE ACET 25 MG RECTAL SUPP PR SCH (10:24)
[2022-09-29] MEDS: FUROSEMIDE 40 MG/4 ML VIAL IV SCH ×2 (10:24→21:27)
[2022-09-29] MEDS: SODIUM CHLOR 0.9% PF (SALINE LOCK) 10ML VIAL/SYR IV SCH ×2 (10:24→21:29)
[2022-09-29] MEDS: ENOXAPARIN SOD 40 MG/0.4 ML SYRINGE SC SCH (10:24)
[2022-09-29] MEDS: PANTOPRAZOLE 40 MG/10 ML VIAL INJ IV SCH ×2 (10:24→21:27)
[2022-09-29] MEDS: NOREPINEPHRINE 8 MG/250ML KIT 250 ML IV SCH (14:15)
[2022-09-29] MEDS: TPN*HIGH CONC* PER PHARMACY IV NR ×8 (19:24)
[2022-09-29] MEDS ORDERED: TPN*HIGH CONC* PER PHARMACY IV NR ×8 (20:00)
[2022-09-30] VITALS (103 sets, daily range): BP systolic 81–126; BP diastolic 35–77
[2022-09-30] MEDS: fentaNYL Drip 2500mCg/250mlNS 250 ML IV SCH ×3 (00:15→17:19)
[2022-09-30] MEDS: MIDAZOLAM DRIP 50 mg/50mL 50 ML IV SCH ×5 (01:21→17:18)
[2022-09-30 04:41] LABS: Hematocrit 27.4 % (41.0-53.0); Mean Corpuscular Hemoglobin 30.7 pg (28.0-32.0); Mean Corpuscular Hgb Conc. 32.7 g/dL (32.0-36.0); Mean Corpuscular Volume 93.7 fL (80.0-100.0); Red Blood Cells 2.93 10^6/uL (4.5-5.90); Red Cell Distribution Width 17.3 % (11.8-14.3); White Blood Cell 7.2 10^3/uL (4.4-10.8)
[2022-09-30 04:45] LABS: Albumin 1.6 g/dL (3.4-5.0); Calcium 7.8 mg/dL (8.5-10.1); Magnesium 1.7 mg/dL (1.6-2.6); Potassium 3.5 mmol/L (3.5-5.1)
[2022-09-30 04:51] LABS: BUN/Creatinine Ratio 87.9 (10.0-20.0); Bilirubin, Total 0.3 mg/dL (0.2-1.0); Phosphorus 4.9 mg/dL (2.5-4.90); Total Protein 5.8 g/dL (6.4-8.2)
[2022-09-30 04:52] LABS: Basophils % (manual) 0 (0.0-2.0); Blast Cells 0; Promyelocytes % 0; Reactive Lymphocytes 0
[2022-09-30] MEDS: PROPOFOL 100 ML IV SCH ×5 (05:40→23:21)
[2022-09-30] MEDS: CEFEPIME 1GM/ 50ML 50 ML IV SCH ×3 (05:40→22:04)
[2022-09-30] MEDS: ACCU-CHEK COMFORT CURVE STRIP VI SCH ×4 (05:41→23:45)
[2022-09-30] MEDS: InsuLIN REG 1unit/0.01ml Soln (100units/ml) SC SCH ×4 (05:41→23:45)
[2022-09-30] MEDS: PHENYLEPHRINE INJ 80 MG in SODIUM CHL 0.9% 242 ML IV SCH ×3 (05:56→21:26)
[2022-09-30 08:20] LABS: Band Neutrophils % (manual) 10; Eosinophils % (manual) 1 (0-7); Lymphocytes % (manual) 13 (10.0-50.0); Metamyelocytes % 7; Monocytes % (manual) 3 (0-12); Myelocytes % 2
[2022-09-30] MEDS: NOREPINEPHRINE 8 MG/250ML KIT 250 ML IV SCH (08:22)
[2022-09-30] MEDS ORDERED: PROPOFOL 100 ML IV ONE (10:11)
[2022-09-30] MEDS: FUROSEMIDE 40 MG/4 ML VIAL IV SCH ×2 (10:28→22:00)
[2022-09-30] MEDS: SODIUM CHLOR 0.9% PF (SALINE LOCK) 10ML VIAL/SYR IV SCH (10:28)
[2022-09-30] MEDS: ENOXAPARIN SOD 40 MG/0.4 ML SYRINGE SC SCH (10:28)
[2022-09-30] MEDS: DOCUSATE ORAL LIQUID 100 MG/10 ML UD GT SCH (10:28)
[2022-09-30] MEDS: PANTOPRAZOLE 40 MG/10 ML VIAL INJ IV SCH ×2 (10:28→22:00)
[2022-09-30] MEDS: ROCURONIUM 10MG/ML 10ML VIAL IV PRN (12:04)
[2022-09-30] MEDS ORDERED: TPN PER PHARMACY IV NR ×8 (20:00)
[2022-09-30] MEDS ORDERED: TPN*HIGH CONC* PER PHARMACY IV NR ×7 (20:00)
[2022-09-30] MEDS: METOCLOPRAMIDE HCL 5MG/ml INJ 2ml VIAL IV SCH (22:00)
[2022-10-01] VITALS (104 sets, daily range): BP systolic 74–127; BP diastolic 40–79
[2022-10-01] MEDS: fentaNYL Drip 2500mCg/250mlNS 250 ML IV SCH ×3 (00:57→18:22)
[2022-10-01] MEDS: MIDAZOLAM DRIP 50 mg/50mL 50 ML IV SCH ×7 (01:50→21:31)
[2022-10-01] MEDS: SODIUM CHLOR 0.9% PF (SALINE LOCK) 10ML VIAL/SYR IV SCH ×3 (03:43→22:20)
[2022-10-01] MEDS: PROPOFOL 100 ML IV SCH ×5 (03:43→21:31)
[2022-10-01] MEDS: PHENYLEPHRINE INJ 80 MG in SODIUM CHL 0.9% 242 ML IV SCH ×3 (03:44→18:19)
[2022-10-01 04:05] LABS: Hematocrit 28.2 % (41.0-53.0); Hemoglobin 9.5 g/dL (13.5-17.5); Mean Corpuscular Hemoglobin 31.9 pg (28.0-32.0); Mean Corpuscular Hgb Conc. 33.7 g/dL (32.0-36.0); Mean Corpuscular Volume 94.7 fL (80.0-100.0); Red Blood Cells 2.98 10^6/uL (4.5-5.90); Red Cell Distribution Width 16.9 % (11.8-14.3); White Blood Cell 8.6 10^3/uL (4.4-10.8)
[2022-10-01 04:06] LABS: Calcium 7.4 mg/dL (8.5-10.1); Potassium 3.5 mmol/L (3.5-5.1)
[2022-10-01 04:09] LABS: Albumin 1.5 g/dL (3.4-5.0); BUN/Creatinine Ratio 81.3 (10.0-20.0); Magnesium 1.9 mg/dL (1.6-2.6)
[2022-10-01 04:16] LABS: Basophils % (manual) 0 (0.0-2.0); Blast Cells 0; Promyelocytes % 0; Reactive Lymphocytes 0
[2022-10-01 04:17] LABS: Bilirubin, Total 0.4 mg/dL (0.2-1.0); Phosphorus 3.6 mg/dL (2.5-4.90); Total Protein 6.1 g/dL (6.4-8.2)
[2022-10-01] MEDS: CEFEPIME 1GM/ 50ML 50 ML IV SCH ×3 (06:15→22:22)
[2022-10-01] MEDS: ACCU-CHEK COMFORT CURVE STRIP VI SCH ×4 (06:15→23:49)
[2022-10-01] MEDS: InsuLIN REG 1unit/0.01ml Soln (100units/ml) SC SCH ×4 (06:16→23:49)
[2022-10-01 08:09] LABS: Band Neutrophils % (manual) 23; Eosinophils % (manual) 5 (0-7); Lymphocytes % (manual) 15 (10.0-50.0); Metamyelocytes % 4; Monocytes % (manual) 1 (0-12); Myelocytes % 5
[2022-10-01] MEDS ORDERED: POTASSIUM CHL 20MEQ/100ML 100 ML IV ONE (09:30)
[2022-10-01] MEDS: DOCUSATE ORAL LIQUID 100 MG/10 ML UD GT SCH (09:48)
[2022-10-01] MEDS: METOCLOPRAMIDE HCL 5MG/ml INJ 2ml VIAL IV SCH ×2 (09:48→22:22)
[2022-10-01] MEDS: PANTOPRAZOLE 40 MG/10 ML VIAL INJ IV SCH ×2 (09:48→22:21)
[2022-10-01] MEDS: ENOXAPARIN SOD 40 MG/0.4 ML SYRINGE SC SCH (09:49)
[2022-10-01] MEDS: FUROSEMIDE 40 MG/4 ML VIAL IV SCH ×2 (09:49→22:22)
[2022-10-01] MEDS: ROCURONIUM 10MG/ML 10ML VIAL IV PRN (11:30)
[2022-10-01] MEDS: NOREPINEPHRINE 8 MG/250ML KIT 250 ML IV SCH (15:07)
[2022-10-01] MEDS ORDERED: TPN*HIGH CONC* PER PHARMACY IV NR ×8 (20:00)
[2022-10-02] VITALS (107 sets, daily range): BP systolic 83–117; BP diastolic 51–73
[2022-10-02] MEDS: MIDAZOLAM DRIP 50 mg/50mL 50 ML IV SCH ×5 (01:21→16:06)
[2022-10-02] MEDS: PHENYLEPHRINE INJ 80 MG in SODIUM CHL 0.9% 242 ML IV SCH ×2 (01:43→08:12)
[2022-10-02] MEDS: PROPOFOL 100 ML IV SCH ×5 (01:44→17:21)
[2022-10-02] MEDS: fentaNYL Drip 2500mCg/250mlNS 250 ML IV SCH ×3 (02:30→17:23)
[2022-10-02] MEDS: NOREPINEPHRINE 8 MG/250ML KIT 250 ML IV SCH ×2 (03:06→12:38)
[2022-10-02 04:32] LABS: Hematocrit 30.2 % (41.0-53.0); Hemoglobin 9.7 g/dL (13.5-17.5); Mean Corpuscular Hemoglobin 30.5 pg (28.0-32.0); Mean Corpuscular Hgb Conc. 32.1 g/dL (32.0-36.0); Mean Corpuscular Volume 95.1 fL (80.0-100.0); Red Blood Cells 3.17 10^6/uL (4.5-5.90); White Blood Cell 13.3 10^3/uL (4.4-10.8)
[2022-10-02 04:48] LABS: Albumin 1.6 g/dL (3.4-5.0); Basophils % (manual) 0 (0.0-2.0); Blast Cells 0; Calcium 8.2 mg/dL (8.5-10.1); Magnesium 2.3 mg/dL (1.6-2.6); Metamyelocytes % 0; Potassium 4.4 mmol/L (3.5-5.1); Promyelocytes % 0; Reactive Lymphocytes 0
[2022-10-02 04:51] LABS: BUN/Creatinine Ratio 65.5 (10.0-20.0); Bilirubin, Total 0.2 mg/dL (0.2-1.0); Total Protein 6.5 g/dL (6.4-8.2)
[2022-10-02] MEDS: CEFEPIME 1GM/ 50ML 50 ML IV SCH ×3 (05:56→21:46)
[2022-10-02] MEDS: InsuLIN REG 1unit/0.01ml Soln (100units/ml) SC SCH ×3 (06:00→17:38)
[2022-10-02] MEDS: ACCU-CHEK COMFORT CURVE STRIP VI SCH ×3 (06:01→17:39)
[2022-10-02 06:38] LABS: Band Neutrophils % (manual) 12; Eosinophils % (manual) 8 (0-7); Lymphocytes % (manual) 16 (10.0-50.0); Monocytes % (manual) 7 (0-12); Myelocytes % 2
[2022-10-02] MEDS ORDERED: PROPOFOL 100 ML IV ONE (09:23)
[2022-10-02] MEDS: METOCLOPRAMIDE HCL 5MG/ml INJ 2ml VIAL IV SCH ×2 (09:27→21:47)
[2022-10-02] MEDS: FUROSEMIDE 40 MG/4 ML VIAL IV SCH ×2 (09:28→21:46)
[2022-10-02] MEDS: PANTOPRAZOLE 40 MG/10 ML VIAL INJ IV SCH ×2 (09:28→21:47)
[2022-10-02] MEDS: DOCUSATE ORAL LIQUID 100 MG/10 ML UD GT SCH (09:29)
[2022-10-02] MEDS: ENOXAPARIN SOD 40 MG/0.4 ML SYRINGE SC SCH (09:29)
[2022-10-02] MEDS: SODIUM CHLOR 0.9% PF (SALINE LOCK) 10ML VIAL/SYR IV SCH ×2 (09:29→21:47)
[2022-10-02] MEDS ORDERED: [UNRECOGNIZED DRUG - OTHER] IV NR ×8 (20:00)
[2022-10-02] MEDS ORDERED: POTASSIUM CHLORIDE IV NR ×8 (20:00)
[2022-10-02] MEDS ORDERED: TPN*HIGH CONC* PER PHARMACY IV NR ×8 (20:00)
[2022-10-02] MEDS ORDERED: MAGNESIUM SULF IV NR ×8 (20:00)
[2022-10-02] MEDS ORDERED: POTASSIUM PHOSPHATE IV NR ×8 (20:00)
[2022-10-03] VITALS (101 sets, daily range): BP systolic 57–141; BP diastolic 32–90
[2022-10-03] MEDS: MIDAZOLAM DRIP 50 mg/50mL 50 ML IV SCH ×5 (00:49→21:25)
[2022-10-03] MEDS: NOREPINEPHRINE 8 MG/250ML KIT 250 ML IV SCH ×3 (00:50→15:34)
[2022-10-03] MEDS: ACCU-CHEK COMFORT CURVE STRIP VI SCH ×4 (00:52→18:07)
[2022-10-03] MEDS: ROCURONIUM 10MG/ML 10ML VIAL IV PRN (02:51)
[2022-10-03] MEDS ORDERED: IPRATROPIUM BROM 0.5 MG/2.5ML INH SOL NEB PRN (03:00)
[2022-10-03] MEDS ORDERED: ALBUTEROL SULF 2.5 MG/0.5ML(0.5%) NEB SOLN NEB PRN (03:00)
[2022-10-03 04:32] LABS: Hematocrit 28.6 % (41.0-53.0); Hemoglobin 9.4 g/dL (13.5-17.5); Mean Corpuscular Hemoglobin 30.8 pg (28.0-32.0); Mean Corpuscular Hgb Conc. 32.7 g/dL (32.0-36.0); Mean Corpuscular Volume 94.2 fL (80.0-100.0); Red Blood Cells 3.04 10^6/uL (4.5-5.90); Red Cell Distribution Width 16.6 % (11.8-14.3); White Blood Cell 11.8 10^3/uL (4.4-10.8)
[2022-10-03 04:39] LABS: Basophils % (manual) 0 (0.0-2.0); Blast Cells 0; Metamyelocytes % 0; Myelocytes % 0; Promyelocytes % 0; Reactive Lymphocytes 0
[2022-10-03 04:46] LABS: Potassium 4.5 mmol/L (3.5-5.1)
[2022-10-03 04:54] LABS: Albumin 1.4 g/dL (3.4-5.0); BUN/Creatinine Ratio 60.5 (10.0-20.0); Bilirubin, Total 0.3 mg/dL (0.2-1.0); Calcium 8.4 mg/dL (8.5-10.1); Magnesium 2.4 mg/dL (1.6-2.6); Phosphorus 3.3 mg/dL (2.5-4.90); Total Protein 6.2 g/dL (6.4-8.2)
[2022-10-03] MEDS ORDERED: PHENYLEPHRINE IV 250 ML IV ONE ×3 (05:36→22:42)
[2022-10-03] MEDS ORDERED: PHENYLEPHRINE HCL 10 MG/ML VL ONE ×3 (05:36→22:42)
[2022-10-03] MEDS: InsuLIN REG 1unit/0.01ml Soln (100units/ml) SC SCH ×4 (06:00→18:00)
[2022-10-03] MEDS: CEFEPIME 1GM/ 50ML 50 ML IV SCH ×3 (06:47→23:01)
[2022-10-03] MEDS: ALBUTEROL SULF 2.5 MG/0.5ML(0.5%) NEB SOLN NEB SCH ×5 (06:48→22:51)
[2022-10-03] MEDS: IPRATROPIUM BROM 0.5 MG/2.5ML INH SOL NEB SCH ×5 (06:48→22:51)
[2022-10-03] MEDS: fentaNYL Drip 2500mCg/250mlNS 250 ML IV SCH ×3 (07:39→23:07)
[2022-10-03 08:25] LABS: Band Neutrophils % (manual) 5; Eosinophils % (manual) 7 (0-7); Lymphocytes % (manual) 22 (10.0-50.0); Monocytes % (manual) 7 (0-12)
[2022-10-03] MEDS: ENOXAPARIN SOD 40 MG/0.4 ML SYRINGE SC SCH (09:24)
[2022-10-03] MEDS: METOCLOPRAMIDE HCL 5MG/ml INJ 2ml VIAL IV SCH ×2 (09:24→23:02)
[2022-10-03] MEDS: PANTOPRAZOLE 40 MG/10 ML VIAL INJ IV SCH ×2 (09:24→23:01)
[2022-10-03] MEDS: DOCUSATE ORAL LIQUID 100 MG/10 ML UD GT SCH (09:24)
[2022-10-03] MEDS: FUROSEMIDE 40 MG/4 ML VIAL IV SCH ×2 (09:26→23:01)
[2022-10-03] MEDS: SODIUM CHLOR 0.9% PF (SALINE LOCK) 10ML VIAL/SYR IV SCH ×2 (09:29→23:02)
[2022-10-03] MEDS: PROPOFOL 100 ML IV SCH ×3 (11:11→18:03)
[2022-10-03] MEDS: PHENYLEPHRINE INJ 80 MG in SODIUM CHL 0.9% 242 ML IV SCH ×2 (11:55→18:03)
[2022-10-03] MEDS ORDERED: TPN*HIGH CONC* PER PHARMACY IV NR ×8 (20:00)
[2022-10-03] MEDS ORDERED: fentaNYL Drip 2500mCg/250mlNS 250 ML IV ONE (21:21)
[2022-10-04] VITALS (107 sets, daily range): BP systolic 78–131; BP diastolic 43–74
[2022-10-04] MEDS: SODIUM BICARBONATE 50ML VIAL 150 ML in D5W 5% 1,000 ML IV SCH ×2 (00:38→13:18)
[2022-10-04] MEDS: ACCU-CHEK COMFORT CURVE STRIP VI SCH ×4 (02:02→17:24)
[2022-10-04] MEDS: InsuLIN REG 1unit/0.01ml Soln (100units/ml) SC SCH ×4 (02:03→17:24)
[2022-10-04] MEDS: IPRATROPIUM BROM 0.5 MG/2.5ML INH SOL NEB SCH ×6 (02:17→22:18)
[2022-10-04] MEDS: ALBUTEROL SULF 2.5 MG/0.5ML(0.5%) NEB SOLN NEB SCH ×6 (02:17→22:18)
[2022-10-04 04:10] LABS: Basophils # (auto) 0.2 10 ^3/uL (0-0.2); Basophils % (auto) 0.9 % (0.0-2.0); Eosinophils # (auto) 1.2 10 ^3/uL (0-0.8); Eosinophils % (auto) 7.2 % (0.0-7.0); Hematocrit 29.8 % (41.0-53.0); Hemoglobin 9.3 g/dL (13.5-17.5); Lymphocytes # (auto) 2.5 10 ^3/uL (0.4-5.4); Lymphocytes % (auto) 14.9 % (10.0-50.0); Mean Corpuscular Hemoglobin 30.2 pg (28.0-32.0); Mean Corpuscular Hgb Conc. 31.2 g/dL (32.0-36.0); Mean Corpuscular Volume 96.9 fL (80.0-100.0); Monocytes # (auto) 1.2 10 ^3/uL (0-1.3); Monocytes % (auto) 7.1 % (0.0-12.0); Neutrophils # (auto) 11.8 10 ^3/uL (1.6-8.6); Neutrophils % (auto) 69.9 % (37.0-80.0); Nucleated Red Blood Cells % 0.2 %; Red Blood Cells 3.08 10^6/uL (4.5-5.90); Red Cell Distribution Width 17.2 % (11.8-14.3); White Blood Cell 16.9 10^3/uL (4.4-10.8)
[2022-10-04 04:29] LABS: Albumin 1.2 g/dL (3.4-5.0); Calcium 8.4 mg/dL (8.5-10.1); Magnesium 1.8 mg/dL (1.6-2.6); Potassium 4.3 mmol/L (3.5-5.1)
[2022-10-04 04:31] LABS: BUN/Creatinine Ratio 51.3 (10.0-20.0)
[2022-10-04 04:34] LABS: Bilirubin, Total 0.3 mg/dL (0.2-1.0); Phosphorus 3.9 mg/dL (2.5-4.90)
[2022-10-04] MEDS: CEFEPIME 1GM/ 50ML 50 ML IV SCH (06:00)
[2022-10-04] MEDS: MIDAZOLAM DRIP 50 mg/50mL 50 ML IV SCH ×5 (07:39→22:10)
[2022-10-04] MEDS: PROPOFOL 100 ML IV SCH ×3 (07:39→18:15)
[2022-10-04] MEDS: PHENYLEPHRINE INJ 80 MG in SODIUM CHL 0.9% 242 ML IV SCH ×3 (08:07→22:11)
[2022-10-04] MEDS ORDERED: SODIUM BICARBONATE 8.4 % INJ 50ML VIAL IV ONE (09:00)
[2022-10-04] MEDS: DOCUSATE ORAL LIQUID 100 MG/10 ML UD GT SCH (09:20)
[2022-10-04] MEDS: NOREPINEPHRINE 8 MG/250ML KIT 250 ML IV SCH ×3 (09:20→21:37)
[2022-10-04] MEDS: METOCLOPRAMIDE HCL 5MG/ml INJ 2ml VIAL IV SCH ×2 (09:21→21:38)
[2022-10-04] MEDS: PANTOPRAZOLE 40 MG/10 ML VIAL INJ IV SCH ×2 (09:21→21:38)
[2022-10-04] MEDS: FUROSEMIDE 40 MG/4 ML VIAL IV SCH (09:21)
[2022-10-04] MEDS: SODIUM CHLOR 0.9% PF (SALINE LOCK) 10ML VIAL/SYR IV SCH ×2 (09:21→21:38)
[2022-10-04] MEDS: ENOXAPARIN SOD 40 MG/0.4 ML SYRINGE SC SCH (09:22)
[2022-10-04] MEDS: VASOPRESSIN 20 UNITS in SODIUM CHL 0.9% 99 ML IV SCH ×2 (10:45→13:16)
[2022-10-04] MEDS: EPINEPHrine HCL 250 ML IV SCH (10:45)
[2022-10-04] MEDS: fentaNYL Drip 2500mCg/250mlNS 250 ML IV SCH ×2 (10:56→18:19)
[2022-10-04] MEDS ORDERED: FLUCONAZOLE 200MG/100ML 100 ML IV ONE (15:15)
[2022-10-04] MEDS: FUROSEMIDE 100 MG/10ML VIAL IV SCH (18:21)
[2022-10-04] MEDS: TPN*HIGH CONC* PER PHARMACY IV NR ×10 (20:20)
[2022-10-05] VITALS (92 sets, daily range): BP systolic 65–120; BP diastolic 35–69
[2022-10-05] MEDS: SODIUM BICARBONATE 50ML VIAL 150 ML in D5W 5% 1,000 ML IV SCH (00:30)
[2022-10-05] MEDS: PROPOFOL 100 ML IV SCH ×4 (00:37→20:18)
[2022-10-05] MEDS: MIDAZOLAM DRIP 50 mg/50mL 50 ML IV SCH ×5 (01:56→18:33)
[2022-10-05] MEDS: fentaNYL Drip 2500mCg/250mlNS 250 ML IV SCH ×3 (02:25→18:35)
[2022-10-05] MEDS: IPRATROPIUM BROM 0.5 MG/2.5ML INH SOL NEB SCH ×6 (02:27→21:53)
[2022-10-05] MEDS: ALBUTEROL SULF 2.5 MG/0.5ML(0.5%) NEB SOLN NEB SCH ×6 (02:27→21:52)
[2022-10-05] MEDS: NOREPINEPHRINE 8 MG/250ML KIT 250 ML IV SCH ×3 (02:33→12:07)
[2022-10-05 04:38] LABS: Hemoglobin 8.1 g/dL (13.5-17.5); Mean Corpuscular Volume 92.4 fL (80.0-100.0); Red Cell Distribution Width 16.7 % (11.8-14.3)
[2022-10-05 04:43] LABS: Hematocrit 25.2 % (41.0-53.0); Mean Corpuscular Hemoglobin 29.7 pg (28.0-32.0); Mean Corpuscular Hgb Conc. 32.2 g/dL (32.0-36.0); Red Blood Cells 2.73 10^6/uL (4.5-5.90); White Blood Cell 16.9 10^3/uL (4.4-10.8)
[2022-10-05 04:50] LABS: Basophils % (manual) 0 (0.0-2.0); Blast Cells 0; Promyelocytes % 0; Reactive Lymphocytes 0
[2022-10-05 04:57] LABS: Albumin 1.1 g/dL (3.4-5.0); BUN/Creatinine Ratio 46.6 (10.0-20.0); Calcium 7.8 mg/dL (8.5-10.1); Magnesium 1.5 mg/dL (1.6-2.6); Potassium 4.3 mmol/L (3.5-5.1)
[2022-10-05 05:00] LABS: Bilirubin, Total 0.4 mg/dL (0.2-1.0); Phosphorus 3.6 mg/dL (2.5-4.90); Total Protein 5.6 g/dL (6.4-8.2)
[2022-10-05] MEDS: FUROSEMIDE 100 MG/10ML VIAL IV SCH (05:44)
[2022-10-05] MEDS: ACCU-CHEK COMFORT CURVE STRIP VI SCH ×5 (05:58→23:34)
[2022-10-05] MEDS: InsuLIN REG 1unit/0.01ml Soln (100units/ml) SC SCH ×5 (05:58→23:34)
[2022-10-05] MEDS: PHENYLEPHRINE INJ 80 MG in SODIUM CHL 0.9% 242 ML IV SCH ×3 (07:03→22:22)
[2022-10-05 07:04] LABS: Band Neutrophils % (manual) 14; Eosinophils % (manual) 8 (0-7); Lymphocytes % (manual) 10 (10.0-50.0); Metamyelocytes % 1; Monocytes % (manual) 7 (0-12); Myelocytes % 2
[2022-10-05] MEDS ORDERED: BUMETANIDE INJECTION 12.5 MG in GIVE UN-DILUTED 0 ML IV SCH (08:45)
[2022-10-05] MEDS: VASOPRESSIN 20 UNITS in SODIUM CHL 0.9% 99 ML IV SCH ×2 (08:59→13:44)
[2022-10-05] MEDS: ENOXAPARIN SOD 40 MG/0.4 ML SYRINGE SC SCH (10:12)
[2022-10-05] MEDS: SODIUM CHLOR 0.9% PF (SALINE LOCK) 10ML VIAL/SYR IV SCH ×2 (10:13→21:32)
[2022-10-05] MEDS: METOCLOPRAMIDE HCL 5MG/ml INJ 2ml VIAL IV SCH ×2 (10:13→21:30)
[2022-10-05] MEDS: DOCUSATE ORAL LIQUID 100 MG/10 ML UD GT SCH (10:13)
[2022-10-05] MEDS: FLUCONAZOLE 200MG/100ML 100 ML IV SCH (10:13)
[2022-10-05] MEDS: PANTOPRAZOLE 40 MG/10 ML VIAL INJ IV SCH ×2 (10:13→21:30)
[2022-10-05] MEDS: EPINEPHrine HCL 250 ML IV SCH (10:45)
[2022-10-05] MEDS: TPN*HIGH CONC* PER PHARMACY IV NR ×20 (19:54→20:24)
[2022-10-05] MEDS: BUMETANIDE INJECTION 25 MG in GIVE UN-DILUTED 0 ML IV SCH (20:19)
[2022-10-05] MEDS: NOREPINEPHRINE BITARTRATE 32 MG in SODIUM CHL 0.9% 218 ML IV SCH (22:21)
[2022-10-06] VITALS (95 sets, daily range): BP systolic 51–165; BP diastolic 30–88
[2022-10-06] MEDS: MIDAZOLAM DRIP 50 mg/50mL 50 ML IV SCH ×4 (00:30→20:53)
[2022-10-06] MEDS: PROPOFOL 100 ML IV SCH ×3 (01:54→17:19)
[2022-10-06] MEDS: fentaNYL Drip 2500mCg/250mlNS 250 ML IV SCH ×3 (01:57→17:21)
[2022-10-06] MEDS: ALBUTEROL SULF 2.5 MG/0.5ML(0.5%) NEB SOLN NEB SCH ×6 (02:02→23:01)
[2022-10-06] MEDS: IPRATROPIUM BROM 0.5 MG/2.5ML INH SOL NEB SCH ×6 (02:02→23:01)
[2022-10-06] MEDS: VASOPRESSIN 20 UNITS in SODIUM CHL 0.9% 99 ML IV SCH ×2 (04:22→16:07)
[2022-10-06 04:32] LABS: Calcium 7.8 mg/dL (8.5-10.1); Magnesium 1.8 mg/dL (1.6-2.6); Potassium 4.7 mmol/L (3.5-5.1)
[2022-10-06 04:37] LABS: BUN/Creatinine Ratio 41.7 (10.0-20.0); Bilirubin, Total 0.9 mg/dL (0.2-1.0); Phosphorus 2.6 mg/dL (2.5-4.90); Total Protein 5.3 g/dL (6.4-8.2)
[2022-10-06] MEDS: InsuLIN REG 1unit/0.01ml Soln (100units/ml) SC SCH ×3 (06:00→17:53)
[2022-10-06] MEDS: ACCU-CHEK COMFORT CURVE STRIP VI SCH ×3 (06:17→17:53)
[2022-10-06] MEDS: PHENYLEPHRINE INJ 80 MG in SODIUM CHL 0.9% 242 ML IV SCH ×3 (06:19→21:23)
[2022-10-06] MEDS: METOCLOPRAMIDE HCL 5MG/ml INJ 2ml VIAL IV SCH ×2 (10:13→22:00)
[2022-10-06] MEDS: FLUCONAZOLE 200MG/100ML 100 ML IV SCH (10:13)
[2022-10-06] MEDS: PANTOPRAZOLE 40 MG/10 ML VIAL INJ IV SCH ×2 (10:13→22:00)
[2022-10-06] MEDS: SODIUM CHLOR 0.9% PF (SALINE LOCK) 10ML VIAL/SYR IV SCH ×2 (10:16→22:00)
[2022-10-06] MEDS: ENOXAPARIN SOD 40 MG/0.4 ML SYRINGE SC SCH (10:16)
[2022-10-06] MEDS: DOCUSATE ORAL LIQUID 100 MG/10 ML UD GT SCH (10:16)
[2022-10-06] MEDS: EPINEPHrine HCL 250 ML IV SCH ×2 (10:45→16:07)
[2022-10-06] MEDS ORDERED: DOPamine 1600MCG/ML D5W 250 ML IV SCH (18:15)
[2022-10-06] MEDS: BUMETANIDE INJECTION 25 MG in GIVE UN-DILUTED 0 ML IV SCH (19:00)
[2022-10-06] MEDS: NOREPINEPHRINE BITARTRATE 32 MG in SODIUM CHL 0.9% 218 ML IV SCH (19:00)
[2022-10-06] MEDS: TPN*HIGH CONC* PER PHARMACY IV NR ×10 (19:54)
[2022-10-07] MEDS: ACCU-CHEK COMFORT CURVE STRIP VI SCH
[2022-10-07] MEDS: InsuLIN REG 1unit/0.01ml Soln (100units/ml) SC SCH
[2022-10-07] MEDS: MIDAZOLAM DRIP 50 mg/50mL 50 ML IV SCH (00:05)
[2022-10-07 00:10] VITALS: BP 35/30
[2022-10-07 00:15] VITALS: BP 136/107
[2022-10-07 01:45] VITALS: BP 80/63
[2022-10-07 02:15] VITALS: BP 80/62
[2022-10-07] MEDS: ALBUTEROL SULF 2.5 MG/0.5ML(0.5%) NEB SOLN NEB SCH (03:32)
[2022-10-07] MEDS: IPRATROPIUM BROM 0.5 MG/2.5ML INH SOL NEB SCH (03:32)
== END 2022-10-07 11:16 | DRG 4 ==
LOC: ER 01:20 → TELE 10:30 → ICU WEST 18:20
PROVIDERS: ADMIT Registered Nurse; ATTEND Internal Medicine Pulmonary Disease
PROC: 5A09357 Assistance with Respiratory Ventilation, Less than 24 Consecutive Hours, Continuous Positive Airway Pressure (ICD-10-PCS; 2022-07-31)
PROC: XW033E5 Introduction of Remdesivir Anti-infective into Peripheral Vein, Percutaneous Approach, New Technology Group 5 (ICD-10-PCS; 2022-07-31)
PROC: 02HV33Z Insertion of Infusion Device into Superior Vena Cava, Percutaneous Approach (ICD-10-PCS; 2022-08-01)
PROC: B548ZZA Ultrasonography of Superior Vena Cava, Guidance (ICD-10-PCS; 2022-08-01)
PROC: 5A09357 Assistance with Respiratory Ventilation, Less than 24 Consecutive Hours, Continuous Positive Airway Pressure (ICD-10-PCS; 2022-08-02)
PROC: 5A09357 Assistance with Respiratory Ventilation, Less than 24 Consecutive Hours, Continuous Positive Airway Pressure (ICD-10-PCS; 2022-08-03)
PROC: 5A09357 Assistance with Respiratory Ventilation, Less than 24 Consecutive Hours, Continuous Positive Airway Pressure (ICD-10-PCS; 2022-08-05)
PROC: 5A0935A Assistance with Respiratory Ventilation, Less than 24 Consecutive Hours, High Flow/Velocity Cannula (ICD-10-PCS; 2022-08-05)
PROC: 5A0935A Assistance with Respiratory Ventilation, Less than 24 Consecutive Hours, High Flow/Velocity Cannula (ICD-10-PCS; 2022-08-06)
PROC: 5A09357 Assistance with Respiratory Ventilation, Less than 24 Consecutive Hours, Continuous Positive Airway Pressure (ICD-10-PCS; 2022-08-07)
PROC: 5A0935A Assistance with Respiratory Ventilation, Less than 24 Consecutive Hours, High Flow/Velocity Cannula (ICD-10-PCS; 2022-08-07)
PROC: 5A09357 Assistance with Respiratory Ventilation, Less than 24 Consecutive Hours, Continuous Positive Airway Pressure (ICD-10-PCS; 2022-08-08)
PROC: 5A0935A Assistance with Respiratory Ventilation, Less than 24 Consecutive Hours, High Flow/Velocity Cannula (ICD-10-PCS; 2022-08-08)
PROC: 5A09357 Assistance with Respiratory Ventilation, Less than 24 Consecutive Hours, Continuous Positive Airway Pressure (ICD-10-PCS; 2022-08-09)
PROC: 5A0935A Assistance with Respiratory Ventilation, Less than 24 Consecutive Hours, High Flow/Velocity Cannula (ICD-10-PCS; 2022-08-09)
PROC: 5A09357 Assistance with Respiratory Ventilation, Less than 24 Consecutive Hours, Continuous Positive Airway Pressure (ICD-10-PCS; 2022-08-10)
PROC: 5A0935A Assistance with Respiratory Ventilation, Less than 24 Consecutive Hours, High Flow/Velocity Cannula (ICD-10-PCS; 2022-08-10)
PROC: 5A09357 Assistance with Respiratory Ventilation, Less than 24 Consecutive Hours, Continuous Positive Airway Pressure (ICD-10-PCS; 2022-08-11)
PROC: 5A0935A Assistance with Respiratory Ventilation, Less than 24 Consecutive Hours, High Flow/Velocity Cannula (ICD-10-PCS; 2022-08-11)
PROC: 5A0935A Assistance with Respiratory Ventilation, Less than 24 Consecutive Hours, High Flow/Velocity Cannula (ICD-10-PCS; 2022-08-12)
PROC: 5A0935A Assistance with Respiratory Ventilation, Less than 24 Consecutive Hours, High Flow/Velocity Cannula (ICD-10-PCS; 2022-08-13)
PROC: 5A09357 Assistance with Respiratory Ventilation, Less than 24 Consecutive Hours, Continuous Positive Airway Pressure (ICD-10-PCS; 2022-08-14)
PROC: 5A0935A Assistance with Respiratory Ventilation, Less than 24 Consecutive Hours, High Flow/Velocity Cannula (ICD-10-PCS; 2022-08-14)
PROC: 5A0935A Assistance with Respiratory Ventilation, Less than 24 Consecutive Hours, High Flow/Velocity Cannula (ICD-10-PCS; 2022-08-15)
PROC: 5A09357 Assistance with Respiratory Ventilation, Less than 24 Consecutive Hours, Continuous Positive Airway Pressure (ICD-10-PCS; 2022-08-16)
PROC: 5A0935A Assistance with Respiratory Ventilation, Less than 24 Consecutive Hours, High Flow/Velocity Cannula (ICD-10-PCS; 2022-08-16)
PROC: 5A09357 Assistance with Respiratory Ventilation, Less than 24 Consecutive Hours, Continuous Positive Airway Pressure (ICD-10-PCS; 2022-08-17)
PROC: 5A0935A Assistance with Respiratory Ventilation, Less than 24 Consecutive Hours, High Flow/Velocity Cannula (ICD-10-PCS; 2022-08-17)
PROC: 5A09357 Assistance with Respiratory Ventilation, Less than 24 Consecutive Hours, Continuous Positive Airway Pressure (ICD-10-PCS; 2022-08-18)
PROC: 5A0935A Assistance with Respiratory Ventilation, Less than 24 Consecutive Hours, High Flow/Velocity Cannula (ICD-10-PCS; 2022-08-18)
PROC: 5A0935A Assistance with Respiratory Ventilation, Less than 24 Consecutive Hours, High Flow/Velocity Cannula (ICD-10-PCS; 2022-08-19)
PROC: 5A09357 Assistance with Respiratory Ventilation, Less than 24 Consecutive Hours, Continuous Positive Airway Pressure (ICD-10-PCS; 2022-08-20)
PROC: 5A0935A Assistance with Respiratory Ventilation, Less than 24 Consecutive Hours, High Flow/Velocity Cannula (ICD-10-PCS; 2022-08-20)
PROC: 5A09357 Assistance with Respiratory Ventilation, Less than 24 Consecutive Hours, Continuous Positive Airway Pressure (ICD-10-PCS; 2022-08-21)
PROC: 5A0935A Assistance with Respiratory Ventilation, Less than 24 Consecutive Hours, High Flow/Velocity Cannula (ICD-10-PCS; 2022-08-21)
PROC: 5A0935A Assistance with Respiratory Ventilation, Less than 24 Consecutive Hours, High Flow/Velocity Cannula (ICD-10-PCS; 2022-08-22)
PROC: 5A0935A Assistance with Respiratory Ventilation, Less than 24 Consecutive Hours, High Flow/Velocity Cannula (ICD-10-PCS; 2022-08-23)
PROC: 5A09357 Assistance with Respiratory Ventilation, Less than 24 Consecutive Hours, Continuous Positive Airway Pressure (ICD-10-PCS; 2022-08-24)
PROC: 5A0935A Assistance with Respiratory Ventilation, Less than 24 Consecutive Hours, High Flow/Velocity Cannula (ICD-10-PCS; 2022-08-24)
PROC: 5A0935A Assistance with Respiratory Ventilation, Less than 24 Consecutive Hours, High Flow/Velocity Cannula (ICD-10-PCS; 2022-08-25)
PROC: 5A09357 Assistance with Respiratory Ventilation, Less than 24 Consecutive Hours, Continuous Positive Airway Pressure (ICD-10-PCS; 2022-08-26)
PROC: 5A0935A Assistance with Respiratory Ventilation, Less than 24 Consecutive Hours, High Flow/Velocity Cannula (ICD-10-PCS; 2022-08-26)
PROC: 5A09357 Assistance with Respiratory Ventilation, Less than 24 Consecutive Hours, Continuous Positive Airway Pressure (ICD-10-PCS; 2022-08-27)
PROC: 5A0935A Assistance with Respiratory Ventilation, Less than 24 Consecutive Hours, High Flow/Velocity Cannula (ICD-10-PCS; 2022-08-27)
PROC: 5A09357 Assistance with Respiratory Ventilation, Less than 24 Consecutive Hours, Continuous Positive Airway Pressure (ICD-10-PCS; 2022-08-28)
PROC: 5A0935A Assistance with Respiratory Ventilation, Less than 24 Consecutive Hours, High Flow/Velocity Cannula (ICD-10-PCS; 2022-08-28)
PROC: 0D9670Z Drainage of Stomach with Drainage Device, Via Natural or Artificial Opening (ICD-10-PCS; 2022-08-28)
PROC: 5A09357 Assistance with Respiratory Ventilation, Less than 24 Consecutive Hours, Continuous Positive Airway Pressure (ICD-10-PCS; 2022-08-29)
PROC: 5A0935A Assistance with Respiratory Ventilation, Less than 24 Consecutive Hours, High Flow/Velocity Cannula (ICD-10-PCS; 2022-08-29)
PROC: 5A09357 Assistance with Respiratory Ventilation, Less than 24 Consecutive Hours, Continuous Positive Airway Pressure (ICD-10-PCS; 2022-08-30)
PROC: 5A0935A Assistance with Respiratory Ventilation, Less than 24 Consecutive Hours, High Flow/Velocity Cannula (ICD-10-PCS; 2022-08-30)
PROC: 5A09357 Assistance with Respiratory Ventilation, Less than 24 Consecutive Hours, Continuous Positive Airway Pressure (ICD-10-PCS; 2022-08-31)
PROC: 5A0935A Assistance with Respiratory Ventilation, Less than 24 Consecutive Hours, High Flow/Velocity Cannula (ICD-10-PCS; 2022-08-31)
PROC: 5A09357 Assistance with Respiratory Ventilation, Less than 24 Consecutive Hours, Continuous Positive Airway Pressure (ICD-10-PCS; 2022-09-01)
PROC: 5A0935A Assistance with Respiratory Ventilation, Less than 24 Consecutive Hours, High Flow/Velocity Cannula (ICD-10-PCS; 2022-09-01)
PROC: 5A09357 Assistance with Respiratory Ventilation, Less than 24 Consecutive Hours, Continuous Positive Airway Pressure (ICD-10-PCS; 2022-09-02)
PROC: 5A0935A Assistance with Respiratory Ventilation, Less than 24 Consecutive Hours, High Flow/Velocity Cannula (ICD-10-PCS; 2022-09-02)
PROC: 5A09357 Assistance with Respiratory Ventilation, Less than 24 Consecutive Hours, Continuous Positive Airway Pressure (ICD-10-PCS; 2022-09-03)
PROC: 5A0935A Assistance with Respiratory Ventilation, Less than 24 Consecutive Hours, High Flow/Velocity Cannula (ICD-10-PCS; 2022-09-03)
PROC: 5A09357 Assistance with Respiratory Ventilation, Less than 24 Consecutive Hours, Continuous Positive Airway Pressure (ICD-10-PCS; 2022-09-04)
PROC: 5A0935A Assistance with Respiratory Ventilation, Less than 24 Consecutive Hours, High Flow/Velocity Cannula (ICD-10-PCS; 2022-09-04)
PROC: 30233N1 Transfusion of Nonautologous Red Blood Cells into Peripheral Vein, Percutaneous Approach (ICD-10-PCS; 2022-09-05)
PROC: 5A09357 Assistance with Respiratory Ventilation, Less than 24 Consecutive Hours, Continuous Positive Airway Pressure (ICD-10-PCS; 2022-09-05)
PROC: 5A0935A Assistance with Respiratory Ventilation, Less than 24 Consecutive Hours, High Flow/Velocity Cannula (ICD-10-PCS; 2022-09-05)
PROC: 5A09457 Assistance with Respiratory Ventilation, 24-96 Consecutive Hours, Continuous Positive Airway Pressure (ICD-10-PCS; 2022-09-06)
PROC: 5A1955Z Respiratory Ventilation, Greater than 96 Consecutive Hours (ICD-10-PCS; principal; 2022-09-07)
PROC: 0BH17EZ Insertion of Endotracheal Airway into Trachea, Via Natural or Artificial Opening (ICD-10-PCS; 2022-09-07)
PROC: 0B110F4 Bypass Trachea to Cutaneous with Tracheostomy Device, Open Approach (ICD-10-PCS; 2022-09-26)
DX: A41.89 Other specified sepsis (principal); E43 Unspecified severe protein-calorie malnutrition; G93.41 Metabolic encephalopathy; J12.82 Pneumonia due to coronavirus disease 2019; J96.01 Acute respiratory failure with hypoxia; U07.1 COVID-19; R65.21 Severe sepsis with septic shock; N17.0 Acute kidney failure with tubular necrosis; J15.9 Unspecified bacterial pneumonia; J15.0 Pneumonia due to Klebsiella pneumoniae; K92.2 Gastrointestinal hemorrhage, unspecified; J98.11 Atelectasis; I82.402 Acute embolism and thrombosis of unspecified deep veins of left lower extremity; K56.609 Unspecified intestinal obstruction, unspecified as to partial versus complete obstruction; E87.4 Mixed disorder of acid-base balance; I10 Essential (primary) hypertension; T45.515A Adverse effect of anticoagulants, initial encounter; E87.6 Hypokalemia; D50.0 Iron deficiency anemia secondary to blood loss (chronic); J98.2 Interstitial emphysema; I48.91 Unspecified atrial fibrillation; Y92.89 Other specified places as the place of occurrence of the external cause; Z68.25 Body mass index [BMI] 25.0-25.9, adult
CPT/HCPCS: 36415; 36569; 36600; 70450; 71045; 71275; 74018; 80048; 80053; 80061; 80202; 80307; 81001; 82140; 82270; 82271; 82306; 82728; 82805; 82962; 83036; 83605; 83615; 83735; 83880; 84100; 84132; 84443; 84478; 84484; 85007; 85014; 85018; 85025; 85027; 85379; 85610; 85730; 86141; 86850; 86900; 86901; 86920; 87040; 87070; 87077; 87081; 87086; 87088; 87186; 87205; 87426; 87804; 93005; 93306; 93970; 94002; 94003; 94640; 94660; 94762; 96361; 96365; 96366; 97110; 97163; 97530; 99291; A4605; C9113; G0378; J0171; J0696; J1100; J1450; J1815; J2001; J2185; J2250; J2543; J2704; J3480; J3490; J7060; J7131